=== PATIENT | male | born 1955 | race Caucasian/White ===

== ENCOUNTER → 2018-06-24 09:19 | Outpatient (CLI) | payer MEDICAID, SELFPAY ==
[2018-06-24 09:39] LABS: Abs Immature Grans 0.01 k/cumm (0.0-0.09); Absolute Basophil Count 0.04 k/cumm (0.0-0.2); Absolute Eosinophil Count 0.12 k/cumm (0.0-0.7); Absolute Lymphocyte Count 0.62 k/cumm (1.2-3.4); Absolute Monocyte Count 0.46 k/cumm (0.11-0.7); Basophils % 0.9; Eosinophils % 2.7; HCT 42.7 % (40.0-50.0); HGB 14.7 g/dL (13.5-17.5); Immature Grans % 0.2; Lymphocytes % 13.9; Mean Corp. HGB Concentration 34.4 g/dL (32.0-36.0); Mean Corpuscular Hemoglobin 33.3 pg (27.0-33.0); Mean Corpuscular Volume 96.6 fL (80-95); Mean Platelet Volume 8.5 fL (8.0-11.0); Monocytes % 10.3; Platelet Count 193 x1000/uL (130-400); RBC 4.42 m/cumm (4.50-6.00); RBC Distribution Width 13.1 % (11.8-14.1); White Blood Cell Count 4.45 k/cumm (4.4-10.8)
[2018-06-24 10:05] LABS: Iron 172 ug/dL (50-175); Total Iron Binding Capacity 295 ug/dL (250-450); Transferrin Sat 58 % (20-55)
[2018-06-24 10:26] LABS: ALT 65 U/L (12-78); AST 32 U/L (15-37); Albumin 3.8 g/dL (3.4-5.0); Alkaline Phosphatase 138 U/L (46-116); Anion Gap 8.8 mmol/L (3-11); BUN 26 mg/dL (7-18); Bilirubin, Total 0.6 mg/dL (0.2-1.0); CO2 26.2 mmol/L (21.0-32.0); CREATININE 1.22 mg/dL (0.70-1.30); Calcium 9.1 mg/dL (8.5-10.1); Chloride 102 mmol/L (98-107); Folate 17.7 ng/mL (8.6-20.0); Glucose 119 mg/dL (70-100); Potassium 4.4 mmol/L (3.5-5.1); Sodium 137 mmol/L (136-145); Total Protein 7.8 g/dL (6.4-8.2); Vitamin B12 480 pg/mL (193-986)
[2018-06-24 10:27] LABS: Ferritin 1254 ng/mL (8-388)
[2018-06-24 10:36] LABS: LDH 211 U/L (85-227)
[2018-06-25 13:59] LABS: Albumin 58.6 % (55.8-66.1); Total Protein 7.2 g/dl (6.3-8.2)
[2018-06-25 14:25] LABS: ANA Interpretation Negative (NEGAT)
[2018-06-26 11:34] LABS: Methylmalonic Acid 0.28 nmol/mL (<=0.40)
== END ==
PROVIDERS: PCP Emergency Medicine; Visit Provider Internal Medicine
DX: D72.819 Decreased white blood cell count, unspecified (principal)
CPT/HCPCS: 36415; 80053; 80186; 82607; 82728; 82746; 83540; 83550; 83615; 84165; 85025; 86038

== ENCOUNTER → 2018-07-09 08:47 | Outpatient (CLI) | payer MEDICAID, SELFPAY ==
[2018-07-09 09:21] LABS: Prothrombin Time 9.9 sec (9.3-10.8)
[2018-07-09 10:54] LABS: Ferritin 772 ng/mL (8-388)
[2018-07-19 12:30] LABS: Specimen WB Whole Blood
== END ==
PROVIDERS: PCP Emergency Medicine; Visit Provider Internal Medicine
DX: E83.110 Hereditary hemochromatosis (principal)
CPT/HCPCS: 36415; 81256; 82728; 85610

== ENCOUNTER → 2018-07-16 03:14 | Outpatient (CLI) | payer MEDICAID, SELFPAY ==
[2018-07-16 09:23] LABS: Abs Immature Grans 0.01 k/cumm (0.0-0.09); Absolute Basophil Count 0.02 k/cumm (0.0-0.2); Absolute Eosinophil Count 0.08 k/cumm (0.0-0.7); Absolute Lymphocyte Count 0.56 k/cumm (1.2-3.4); Absolute Monocyte Count 0.37 k/cumm (0.11-0.7); Absolute Neutrophil Count 2.64 k/cumm (1.2-6.7); Basophils % 0.5; Eosinophils % 2.2; HGB 14.1 g/dL (13.5-17.5); Immature Grans % 0.3; Lymphocytes % 15.2; Mean Corp. HGB Concentration 33.6 g/dL (32.0-36.0); Mean Corpuscular Hemoglobin 33.3 pg (27.0-33.0); Mean Corpuscular Volume 99.1 fL (80-95); Mean Platelet Volume 8.5 fL (8.0-11.0); Monocytes % 10.1; Neutrophils % 71.7; Platelet Count 183 x1000/uL (130-400); RBC 4.24 m/cumm (4.50-6.00); RBC Distribution Width 13.3 % (11.8-14.1); White Blood Cell Count 3.68 k/cumm (4.4-10.8)
[2018-07-16 09:32] LABS: Prothrombin Time 9.5 sec (9.3-10.8)
[2018-07-16 09:48] LABS: Iron 162 ug/dL (50-175); Total Iron Binding Capacity 316 ug/dL (250-450); Transferrin Sat 51 % (20-55)
[2018-07-16 10:16] LABS: ALT 78 U/L (12-78); AST 35 U/L (15-37); Alkaline Phosphatase 145 U/L (46-116); Anion Gap 9.1 mmol/L (3-11); BUN 15 mg/dL (7-18); Bilirubin, Total 0.5 mg/dL (0.2-1.0); CO2 26.9 mmol/L (21.0-32.0); CREATININE 1.05 mg/dL (0.70-1.30); Calcium 8.9 mg/dL (8.5-10.1); Chloride 103 mmol/L (98-107); Ferritin 986 ng/mL (8-388); Folate 19.3 ng/mL (8.6-20.0); Glucose 129 mg/dL (70-100); Potassium 4.6 mmol/L (3.5-5.1); Sodium 139 mmol/L (136-145); Total Protein 7.7 g/dL (6.4-8.2); Vitamin B12 474 pg/mL (193-986)
[2018-07-16 10:32] LABS: LDH 226 U/L (85-227)
[2018-07-17 09:37] LABS: PSA, Diagnostic <0.1 ng/ml (0-4.5)
[2018-07-17 12:46] LABS: Albumin 58.3 % (55.8-66.1); Total Protein 6.9 g/dl (6.3-8.2)
[2018-07-17 14:19] LABS: ANA Interpretation Negative (NEGAT)
[2018-07-18 08:54] LABS: Testosterone, Total 7.4 ng/dL (240-950)
[2018-07-19 16:18] LABS: Methylmalonic Acid 0.15 nmol/mL (<=0.40)
== END ==
PROVIDERS: PCP Emergency Medicine; Visit Provider Internal Medicine
DX: C61 Malignant neoplasm of prostate (principal); D72.819 Decreased white blood cell count, unspecified; E83.110 Hereditary hemochromatosis
CPT/HCPCS: 36415; 80053; 80186; 84403; 81256; 82607; 82728; 82746; 83540; 83550; 83615; 84153; 84165; 85025; 85610; 86038

== ENCOUNTER 2018-08-27 01:25 | Outpatient (CLI) | payer MEDICAID, SELFPAY ==
[2018-08-27 09:11] LABS: INR 1.1 (1.0-3.5); Prothrombin Time 10.3 sec (9.3-10.8)
[2018-08-27 10:13] LABS: Ferritin 998 ng/mL (8-388)
== END 2018-08-27 01:45 ==
PROVIDERS: PCP Emergency Medicine; Visit Provider Internal Medicine
DX: E83.110 Hereditary hemochromatosis (principal)
CPT/HCPCS: 36415; 81256; 82728; 85610

== ENCOUNTER 2018-09-24 01:48 | Outpatient (CLI) | payer MEDICAID, SELFPAY ==
[2018-09-24 09:12] LABS: Abs Immature Grans 0.01 k/cumm (0.0-0.09); Absolute Basophil Count 0.02 k/cumm (0.0-0.2); Absolute Eosinophil Count 0.04 k/cumm (0.0-0.7); Absolute Lymphocyte Count 0.89 k/cumm (1.2-3.4); Absolute Monocyte Count 0.31 k/cumm (0.11-0.7); Absolute Neutrophil Count 2.15 k/cumm (1.2-6.7); Basophils % 0.6; Eosinophils % 1.2; HCT 41.4 % (40.0-50.0); HGB 14.1 g/dL (13.5-17.5); Immature Grans % 0.3; Mean Corp. HGB Concentration 34.1 g/dL (32.0-36.0); Mean Corpuscular Hemoglobin 33.3 pg (27.0-33.0); Mean Corpuscular Volume 97.6 fL (80-95); Mean Platelet Volume 8.1 fL (8.0-11.0); Monocytes % 9.1; Neutrophils % 62.8; Platelet Count 159 x1000/uL (130-400); RBC 4.24 m/cumm (4.50-6.00); RBC Distribution Width 12.2 % (11.8-14.1); White Blood Cell Count 3.42 k/cumm (4.4-10.8)
[2018-09-24 09:23] LABS: INR 1.1 (1.0-3.5); Prothrombin Time 10.4 sec (9.3-10.8)
[2018-09-24 09:45] LABS: ALT 75 U/L (12-78); AST 29 U/L (15-37); Albumin 3.5 g/dL (3.4-5.0); Alkaline Phosphatase 135 U/L (46-116); Anion Gap 8.4 mmol/L (3-11); BUN 19 mg/dL (7-18); Bilirubin, Total 0.4 mg/dL (0.2-1.0); CO2 24.6 mmol/L (21.0-32.0); CREATININE 1.04 mg/dL (0.70-1.30); Calcium 8.8 mg/dL (8.5-10.1); Chloride 103 mmol/L (98-107); Ferritin 914 ng/mL (8-388); Glucose 203 mg/dL (70-100); Potassium 4.2 mmol/L (3.5-5.1); Sodium 136 mmol/L (136-145)
[2018-09-25 10:03] LABS: PSA, Diagnostic <0.1 ng/ml (0-4.5)
[2018-09-27 16:02] LABS: Testosterone, Total 7.5 ng/dL (240-950)
== END 2018-09-24 02:08 ==
PROVIDERS: PCP Emergency Medicine; Visit Provider Nurse Practitioner
DX: C61 Malignant neoplasm of prostate (principal); E83.110 Hereditary hemochromatosis
CPT/HCPCS: 36415; 80053; 84403; 81256; 82728; 84153; 85025; 85610

== ENCOUNTER 2018-09-28 14:12 | Emergency (ER) | payer MEDICAID, SELFPAY ==
[2018-09-28 14:17] VITALS: BP 186/95; PULSE 76; RESP 18; TEMP 36.7; O2SAT 98
--- NOTE | 2018-09-28 14:41 | DI.CT_ITS ---
SYMPTOM/DIAGNOSIS: RIGHT SIDED FLANK KPAIN, HISTORY OF KIDNEY STONE CT ABDOMEN AND PELVIS: Renal colic CT was performed. There is a 3 mm stone in the distal right ureter just proximal to the ureteropelvic junction causing mild hydronephrosis. There is a nonobstructing 1 mm stone in the lower pole of the right kidney. No left nephrolithiasis or ureterolithiasis is seen. No left hydronephrosis is present. The urinary bladder is intact. The reproductive organs are unremarkable. There is diffuse decreased attenuation of the liver consistent with fatty infiltration. The unenhanced visualized portions of the spleen, pancreas, gallbladder, bile ducts and adrenal glands are unremarkable. The aorta is of normal caliber with mild atherosclerosis. No significant abdominal or pelvic adenopathy, ascites or pneumoperitoneum is seen. The bowel shows no evidence of obstruction or inflammation. There does appear to be a small hiatal hernia. Degenerative changes are seen in the spine. IMPRESSION: 3 mm distal right ureteral calculus causing mild to moderate hydronephrosis. 2. Right nephrolithiasis 3. Hepatic steatosis.
[2018-09-28 14:43] LABS: Bilirubin Negative (Negative); Blood Moderate (Negative); Clarity Clear; Glucose Negative (Negative); Ketones Negative (Negative); Leukocyte Esterase Negative (Negative); Nitrite Negative (Negative); Specific Gravity 1.025 (1.005-1.025); Urobilinogen 0.2 EU/dL (Up TO 0.2); pH 5.5 (5-8)
[2018-09-28] MEDS: Normal Saline 1,000 ML 1000 ML IV (14:49)
[2018-09-28] MEDS: Ketorolac 30 MG/ML VIAL IM (14:50)
--- NOTE | 2018-09-28 14:52 | W.ED.GENAD ---
Discharge Plan Disposition Patient Disposition: HOME Condition: Good Discharge Details Chief Complaint: FlankPain Clinical Impression: Kidney stone Primary Care Provider: Cornelius Hodge ED Provider: Shane Bar Home Meds and New Rx's Prescriptions: New ibuprofen [Motrin IB] 200 MG tablet 600 mg PO Q6H 5 Days Qty: 60 RF: 0 tamsulosin [Flomax] 0.4 mg capsule 0.4 mg PO DAILY Qty: 3 RF: 0 No Action tiotropium bromide [Spiriva with HandiHaler] 18 MCG capsule, w/inhalation device 18 mcg Inhalation DAILY RF: 0 leuprolide (3 month) [Lupron Depot (3 month)] 22.5 MG syringe kit 22.5 mg IM Q3 months RF: 0 lisinopril [Zestril] 5 mg tablet 5 mg PO DAILY Qty: 90 RF: 3 pravastatin [Pravachol] 40 mg tablet 40 mg PO HS Qty: 90 RF: 3 Discharge Instructions Instructions: Kidney Stones (ED) Additional Instructions: Please take the medication as directed. Please drink 8-10 cups of water per day. If you notice any worsening of your symptoms, or any new symptoms such as vomiting, diarrhea, fever, chills, shortness of breath, chest pain, numbness, weakness, or fainting , please return immediately to the emergency department for reevaluation. Please follow up with your primary care provider as soon as possible for reassessment and reevaluation. As always, it was a pleasure participating in your medical care today. Referrals: Cornelius Hodge, [Primary Care Provider] - Medical Decision Making This is a 63-year-old male with a past medical history of urolithiasis, as well as prostate cancer presents today for evaluation of right-sided flank pain, with associated increase in urinary frequency and mild burning. He states that there is no radiation of this pain however he does have some ache in his scrotal area. Genital exam demonstrates no signs of testicular torsion, no testicular masses or other abnormalities no evidence of hernia. Signs and symptoms are clinically consistent with urolithiasis, however because of the patient's age, and history of cancer we will get a CT scan to rule out any other acute process. Will evaluate for infection and his UA, control the patient's pain and rehydrate. 3:[address] scan was performed and I do visualize evidence of a stone on the right-hand side in the distal ureter. Urinalysis demonstrates no evidence of significant urinary tract infection. No systemic symptoms of fever, chills, or tachycardia. On reassessment the patient's pain is completely resolved. He is feeling much better. I will give a dose of Flomax here in the ED, prescription for Flomax and ibuprofen for home use. We discussed red flags which to return, and the patient understands. I have extensively reviewed the treatment plan and discharge instructions with the patient and their family. I have addressed all patient concerns at this time. The patient and family was made aware of what symptoms to monitor for that would warrant a return to the emergency department. Discussed the plan with the patient and family, they demonstrate verbal understanding and agreement with our assessment and plan at this time. FINDINGS: Penetration of the liver. Appendix is normal. Approximate 3 mm distal right ureteral stone just above the ureterovesical junction resulting in mild obstruction of the right kidney. No evidence of bowel obstruction. No focal inflammatory process. Minimal hiatal hernia. No significant free fluid. IMPRESSION: Distal right ureteral stone resulting in mild obstruction of the right kidney. Dictated and Authenticated by: Claus Kang MD. HPI General Date/Time Provider Initiated Documentation: 09/28/18 14:40. HPI Narrative: This is a 63-year-old male with a past medical history of kidney stones, prostate cancer who takes leuprolide every 3 months, who presents today for evaluation of right flank pain. 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 He describes it as an aching-like sensation in his right flank with no radiation. He has noted an associated increase in urinary frequency as well as mild burning in his urine. He states that the symptoms are atypical for him. He denies any hematuria, he states that his symptoms are similar to his previous kidney stone. He denies any associated vomiting or diarrhea but does admit to nausea. He denies any associated chest pain, shortness of breath, arm or neck pain. He denies any history of cardiac disease. He denies any diarrhea, hematochezia, melena, acholic stool. He denies any systemic symptoms of fever or chills. Patient does admit to some associated scrotal pain, and describes it is very mild. No aggravating or relieving factors for any of his symptoms. He denies any recent surgeries, any IV or illicit drug use, or any heavy history of tobacco abuse. He denies any pertinent family history. Related Data Home Medications Medication Instructions Recorded Confirmed tiotropium bromide [Spiriva 18 mcg INHALATION DAILY tab-cap 02/18/18 09/28/18 Handihaler] leuprolide (3 month) [Lupron Depot] 22.5 mg IM Q3 months 02/28/18 lisinopril 5 mg tablet 5 mg PO DAILY #90 tab-cap 09/19/18 09/28/18 pravastatin 40 mg tablet 40 mg PO HS #90 tab 09/19/18 09/28/18 ibuprofen [Motrin Ib] 600 mg PO Q6H 5 Days #60 tab 09/28/18 tamsulosin [Flomax] 0.4 mg PO DAILY #3 cap 09/28/18 Previous Rx's Medication Instructions Recorded lisinopril 5 mg tablet 5 mg PO DAILY #90 tab-cap 09/19/18 pravastatin 40 mg tablet 40 mg PO HS #90 tab 09/19/18 ibuprofen [Motrin Ib] 600 mg PO Q6H 5 Days #60 tab 09/28/18 tamsulosin [Flomax] 0.4 mg PO DAILY #3 cap 09/28/18 Allergies Allergy/AdvReac Type Severity Reaction Status Date / Time Penicillins Allergy Mild Skin Rash Unverified 09/28/18 14:22 oxycodone Allergy WHEEZING Unverified 09/28/18 14:22 atorvastatin AdvReac Intermediate MYALGIAS Unverified 09/28/18 14:22 General Stated Complaint: FlankPain LUCILA: 3 Review of Systems Review of Systems All systems reviewed & are unremarkable except as noted in HPI and below PFSH Family History Mother Diabetes Essential hypertension Heart disease Cerebrovascular accident Asthma Father Diabetes Essential hypertension Sister Diabetes Essential hypertension Heart disease Hyperlipidemia Brother Essential hypertension Heart disease Grandfather Neoplasm Grandfather Essential hypertension Heart disease Grandmother Essential hypertension Cerebrovascular accident Asthma Grandmother Essential hypertension Cerebrovascular accident Asthma Brother Essential hypertension Heart disease Social History current occupational status: employed 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 3.ENT: Atraumatic external nose and ears. Moist MM. Neck: Symmetric, trachea midline, No thyromegaly. 4.CVS: +S1/S2, No murmurs or gallops. Peripheral pulses 2+ and equal in all extremities. Brisk capillary refill in all extremities. 5.RESP: Unlabored respiratory effort. Clear to auscultation bilaterally. No wheezes rales or rhonchi 6.GI: Soft, Nontender/Nondistended, No hepatosplenomegaly. No guarding or rebound. Patient does demonstrate mild right flank tenderness on percussion. No guarding. Genital exam demonstrates no evidence of significant hernia, and uncircumcised penis, and minimal scrotal tenderness, no evidence of edema, significant testicular tenderness. Normal cremasteric reflex bilaterally. No evidence of necrotizing fasciitis, bruising, or hematoma. 7.MSK: Normocephalic/Atraumatic, Extremities w/o deformity or ttp No cyanosis or clubbing, Normal movement of all extremities 8.Skin: Warm, Dry. No rashes or lesions. 9.Neuro: customer solutions teammate II-XII grossly intact. Sensation grossly intact, no focal neurologic deficits. 10.Psych: (AAO) x3. Appropriate mood and affect Course Vital Signs Temperature 36.7 C 09/28/18 14:17 Pulse 76 09/28/18 14:17 Respiratory Rate 18 09/28/18 14:17 Blood Pressure 186/95 H 09/28/18 14:17 Pulse Oximetry 98 09/28/18 14:17 Temperature 36.7 C 09/28/18 14:17 Temperature Source Skin 09/28/18 14:17 Pulse 76 09/28/18 14:17 Respiratory Rate 18 09/28/18 14:17 Respiratory Effort 09/28/18 14:20 Blood Pressure 186/95 H 09/28/18 14:17 Blood Pressure Position Sitting 09/28/18 14:17 Pulse Oximetry 98 09/28/18 14:17 Pain Level 8 09/28/18 14:35
[2018-09-28 14:54] LABS: Bacteria Negative HPF (Negative); C & S Indicated? No; Casts Negative LPF (Negative); Crystals Negative HPF (Negative); Epithelial Cells Rare HPF (Negative); Mucus Trace (Negative); RBC 20-50 (0-2); WBC 0-2 HPF (0-5)
[2018-09-28] MEDS: Ondansetron 4 MG/2 ML VIAL (14:54)
[2018-09-28 14:58] LABS: Abs Immature Grans 0.01 k/cumm (0.0-0.09); Absolute Basophil Count 0.03 k/cumm (0.0-0.2); Absolute Eosinophil Count 0.06 k/cumm (0.0-0.7); Absolute Lymphocyte Count 1.01 k/cumm (1.2-3.4); Absolute Monocyte Count 0.58 k/cumm (0.11-0.7); Absolute Neutrophil Count 4.04 k/cumm (1.2-6.7); Basophils % 0.5; HCT 42.6 % (40.0-50.0); HGB 14.6 g/dL (13.5-17.5); Immature Grans % 0.2; Lymphocytes % 17.6; Mean Corp. HGB Concentration 34.3 g/dL (32.0-36.0); Mean Corpuscular Hemoglobin 33.3 pg (27.0-33.0); Mean Platelet Volume 8.6 fL (8.0-11.0); Monocytes % 10.1; Neutrophils % 70.6; Platelet Count 211 x1000/uL (130-400); RBC 4.39 m/cumm (4.50-6.00); RBC Distribution Width 12.1 % (11.8-14.1); White Blood Cell Count 5.73 k/cumm (4.4-10.8)
[2018-09-28 15:09] LABS: ALT 73 U/L (12-78); AST 38 U/L (15-37); Albumin 3.8 g/dL (3.4-5.0); Alkaline Phosphatase 139 U/L (46-116); Anion Gap 9.5 mmol/L (3-11); BUN 20 mg/dL (7-18); Bilirubin, Total 0.5 mg/dL (0.2-1.0); CO2 25.5 mmol/L (21.0-32.0); CREATININE 1.11 mg/dL (0.70-1.30); Chloride 101 mmol/L (98-107); Glucose 106 mg/dL (70-100); Potassium 4.1 mmol/L (3.5-5.1); Sodium 136 mmol/L (136-145); Total Protein 7.6 g/dL (6.4-8.2)
--- NOTE | 2018-09-28 15:54 | DI.VRAD_ITS ---
EXAM: CT Abdomen and Pelvis Without Intravenous Contrast EXAM DATE/TIME: 09/28/2018 2:44 PM CLINICAL HISTORY: 63 years old, male; Signs and symptoms; Other: Pain RT sided; Additional info: RT sided flank pain history of kidney stone TECHNIQUE: Axial computed tomography images of the abdomen and pelvis without intravenous contrast. All CT scans at this facility use at least one of these dose optimization techniques: automated exposure control; mA and/or kV adjustment per patient size (includes targeted exams where dose is matched to clinical indication); or iterative reconstruction. Coronal and sagittal reformatted images were created and reviewed. COMPARISON: CT ABD PELVIS WITH CONTRAST 03/25/2014 8:16 AM FINDINGS: Penetration of the liver. Appendix is normal. Approximate 3 mm distal right ureteral stone just above the ureterovesical junction resulting in mild obstruction of the right kidney. No evidence of bowel obstruction. No focal inflammatory process. Minimal hiatal hernia. No significant free fluid. IMPRESSION: Distal right ureteral stone resulting in mild obstruction of the right kidney. Dictated and Authenticated by: Claus Kang MD. Ordering:LIUDMILA GUPTA MD
[2018-09-28] MEDS: Tamsulosin 0.4 MG CAPCR PO (16:01)
[2018-09-28 16:23] VITALS: BP 149/77; PULSE 71; RESP 16; TEMP 37.1
== END 2018-09-28 16:18 | disposition home or self-care (01) ==
PROVIDERS: Emergency Provider Student in an Organized Health Care Education/Training Program; PCP Emergency Medicine
DX: N20.2 Calculus of kidney with calculus of ureter (principal)
CPT/HCPCS: 36415; 80053; 96360; 96372; 99284; 74176; 81003; 81015; 85025; 87086; J1885; J2405

== ENCOUNTER 2019-01-06 07:36 | Outpatient (CLI) | payer MEDICAID, SELFPAY ==
[2019-01-06 13:48] LABS: Abs Immature Grans 0.01 k/cumm (0.0-0.09); Absolute Basophil Count 0.05 k/cumm (0.0-0.2); Absolute Eosinophil Count 0.05 k/cumm (0.0-0.7); Absolute Lymphocyte Count 0.71 k/cumm (1.2-3.4); Absolute Monocyte Count 0.29 k/cumm (0.11-0.7); Absolute Neutrophil Count 3.35 k/cumm (1.2-6.7); Basophils % 1.1; Eosinophils % 1.1; HCT 40.2 % (40.0-50.0); HGB 13.6 g/dL (13.5-17.5); Immature Grans % 0.2; Lymphocytes % 15.9; Mean Corp. HGB Concentration 33.8 g/dL (32.0-36.0); Mean Corpuscular Hemoglobin 32.7 pg (27.0-33.0); Mean Corpuscular Volume 96.6 fL (80-95); Mean Platelet Volume 8.5 fL (8.0-11.0); Monocytes % 6.5; Neutrophils % 75.2; Platelet Count 170 x1000/uL (130-400); RBC 4.16 m/cumm (4.50-6.00); RBC Distribution Width 12.7 % (11.8-14.1); White Blood Cell Count 4.46 k/cumm (4.4-10.8)
[2019-01-06 14:02] LABS: ALT 51 U/L (12-78); AST 28 U/L (15-37); Albumin 3.3 g/dL (3.4-5.0); Alkaline Phosphatase 117 U/L (46-116); Anion Gap 7.9 mmol/L (3-11); BUN 18 mg/dL (7-18); Bilirubin, Total 0.3 mg/dL (0.2-1.0); CO2 29.1 mmol/L (21.0-32.0); CREATININE 1.02 mg/dL (0.70-1.30); Calcium 8.5 mg/dL (8.5-10.1); Chloride 104 mmol/L (98-107); Glucose 203 mg/dL (70-100); Potassium 4.4 mmol/L (3.5-5.1); Sodium 141 mmol/L (136-145)
[2019-01-07 09:57] LABS: PSA, Diagnostic <0.1 ng/ml (0-4.5)
[2019-01-08 17:09] LABS: Testosterone, Total 7.7 ng/dL (240-950)
== END 2019-01-06 07:56 ==
PROVIDERS: Internal Medicine; PCP Emergency Medicine; Visit Provider Nurse Practitioner
DX: C61 Malignant neoplasm of prostate (principal)
CPT/HCPCS: 36415; 80053; 84403; 84153; 85025

== ENCOUNTER 2019-02-06 01:34 | Outpatient (CLI) | payer MEDICAID, SELFPAY ==
[2019-02-06 11:20] LABS: Hemoglobin A1C 5.8 % (4.5-6.2)
[2019-02-06 11:54] LABS: Iron 122 ug/dL (50-175); Total Iron Binding Capacity 304 ug/dL (250-450); Transferrin Sat 40 % (20-55)
[2019-02-06 12:09] LABS: Ferritin 613 ng/mL (8-388)
== END 2019-02-06 01:54 ==
PROVIDERS: PCP Emergency Medicine; Visit Provider Emergency Medicine
DX: E11.9 Type 2 diabetes mellitus without complications (principal); R79.89 Other specified abnormal findings of blood chemistry
CPT/HCPCS: 36415; 82728; 83036; 83540; 83550

== ENCOUNTER 2019-02-23 02:04 | Outpatient (CLI) | payer MEDICAID, SELFPAY ==
[2019-02-23 10:32] LABS: Absolute Basophil Count 0.04 k/cumm (0.0-0.2); Absolute Eosinophil Count 0.05 k/cumm (0.0-0.7); Absolute Lymphocyte Count 0.77 k/cumm (1.2-3.4); Absolute Monocyte Count 0.34 k/cumm (0.11-0.7); Absolute Neutrophil Count 2.69 k/cumm (1.2-6.7); Eosinophils % 1.3; Lymphocytes % 19.8; Mean Corp. HGB Concentration 33.3 g/dL (32.0-36.0); Mean Corpuscular Hemoglobin 32.2 pg (27.0-33.0); Mean Corpuscular Volume 96.6 fL (80-95); Mean Platelet Volume 8.6 fL (8.0-11.0); Monocytes % 8.7; Neutrophils % 69.2; Platelet Count 181 x1000/uL (130-400); RBC 4.35 m/cumm (4.50-6.00); RBC Distribution Width 12.9 % (11.8-14.1); White Blood Cell Count 3.89 k/cumm (4.4-10.8)
[2019-02-23 10:46] LABS: ALT 49 U/L (12-78); AST 30 U/L (15-37); Albumin 3.8 g/dL (3.4-5.0); Alkaline Phosphatase 104 U/L (46-116); Anion Gap 7.3 mmol/L (3-11); BUN 18 mg/dL (7-18); Bilirubin, Total 0.4 mg/dL (0.2-1.0); CO2 28.7 mmol/L (21.0-32.0); CREATININE 0.82 mg/dL (0.70-1.30); Chloride 104 mmol/L (98-107); Glucose 102 mg/dL (70-100); Potassium 4.4 mmol/L (3.5-5.1); Sodium 140 mmol/L (136-145); Total Protein 7.4 g/dL (6.4-8.2)
[2019-02-24 09:17] LABS: PSA, Diagnostic <0.1 ng/ml (0-4.5)
[2019-02-25 08:35] LABS: Testosterone, Total 7.6 ng/dL (240-950)
== END 2019-02-23 02:24 ==
PROVIDERS: PCP Emergency Medicine; Visit Provider Internal Medicine
DX: C61 Malignant neoplasm of prostate (principal)
CPT/HCPCS: 36415; 80053; 84403; 84153; 85025

== ENCOUNTER 2019-04-18 08:34 | Outpatient (CLI) | payer MEDICAID, SELFPAY ==
[2019-04-18 09:50] LABS: ALT 45 U/L (12-78); AST 28 U/L (15-37); Albumin 3.6 g/dL (3.4-5.0); Alkaline Phosphatase 104 U/L (46-116); Anion Gap 9.1 mmol/L (3-11); BUN 17 mg/dL (7-18); Bilirubin, Total 0.4 mg/dL (0.2-1.0); CO2 27.9 mmol/L (21.0-32.0); CREATININE 0.85 mg/dL (0.70-1.30); Calcium 9.1 mg/dL (8.5-10.1); Chloride 104 mmol/L (98-107); Glucose 94 mg/dL (70-100); Potassium 4.2 mmol/L (3.5-5.1); Sodium 141 mmol/L (136-145); Total Protein 7.1 g/dL (6.4-8.2)
[2019-04-18 10:03] LABS: Abs Immature Grans 0.01 k/cumm (0.0-0.09); Absolute Basophil Count 0.02 k/cumm (0.0-0.2); Absolute Eosinophil Count 0.08 k/cumm (0.0-0.7); Absolute Monocyte Count 0.45 k/cumm (0.11-0.7); Absolute Neutrophil Count 2.75 k/cumm (1.2-6.7); Basophils % 0.5; Eosinophils % 1.9; HCT 40.2 % (40.0-50.0); HGB 13.6 g/dL (13.5-17.5); Immature Grans % 0.2; Lymphocytes % 19.5; Mean Corp. HGB Concentration 33.8 g/dL (32.0-36.0); Mean Corpuscular Hemoglobin 32.6 pg (27.0-33.0); Mean Corpuscular Volume 96.4 fL (80-95); Mean Platelet Volume 8.7 fL (8.0-11.0); Monocytes % 10.9; Platelet Count 186 x1000/uL (130-400); RBC 4.17 m/cumm (4.50-6.00); RBC Distribution Width 12.8 % (11.8-14.1); White Blood Cell Count 4.11 k/cumm (4.4-10.8)
[2019-04-20 09:58] LABS: PSA, Diagnostic <0.1 ng/ml (0-4.5)
[2019-04-21 17:13] LABS: Testosterone, Total <7.0 ng/dL (240-950)
== END 2019-04-18 08:54 ==
PROVIDERS: PCP Emergency Medicine; Visit Provider Nurse Practitioner
DX: C61 Malignant neoplasm of prostate (principal)
CPT/HCPCS: 36415; 80053; 84403; 84153; 85025

== ENCOUNTER 2019-07-08 08:07 | Outpatient (CLI) | payer MEDICAID, SELFPAY ==
[2019-07-08 10:42] LABS: Abs Immature Grans 0.01 k/cumm (0.0-0.09); Absolute Basophil Count 0.03 k/cumm (0.0-0.2); Absolute Eosinophil Count 0.07 k/cumm (0.0-0.7); Absolute Lymphocyte Count 0.69 k/cumm (1.2-3.4); Absolute Monocyte Count 0.42 k/cumm (0.11-0.7); Absolute Neutrophil Count 3.33 k/cumm (1.2-6.7); Basophils % 0.7; Eosinophils % 1.5; HCT 41.8 % (40.0-50.0); HGB 13.8 g/dL (13.5-17.5); Immature Grans % 0.2; Lymphocytes % 15.2; Mean Corpuscular Hemoglobin 32.5 pg (27.0-33.0); Mean Corpuscular Volume 98.4 fL (80-95); Monocytes % 9.2; Neutrophils % 73.2; Platelet Count 202 x1000/uL (130-400); RBC 4.25 m/cumm (4.50-6.00); RBC Distribution Width 12.9 % (11.8-14.1); White Blood Cell Count 4.55 k/cumm (4.4-10.8)
[2019-07-08 11:12] LABS: ALT 45 U/L (12-78); AST 27 U/L (15-37); Albumin 3.4 g/dL (3.4-5.0); Alkaline Phosphatase 102 U/L (46-116); Anion Gap 8.6 mmol/L (3-11); BUN 14 mg/dL (7-18); Bilirubin, Total 0.3 mg/dL (0.2-1.0); CO2 27.4 mmol/L (21.0-32.0); CREATININE 0.97 mg/dL (0.70-1.30); Calcium 8.6 mg/dL (8.5-10.1); Chloride 107 mmol/L (98-107); Glucose 109 mg/dL (70-100); Potassium 4.1 mmol/L (3.5-5.1); Sodium 143 mmol/L (136-145); Total Protein 6.6 g/dL (6.4-8.2)
[2019-07-09 11:50] LABS: PSA, Screening <0.1 ng/ml (0-4.5)
[2019-07-11 14:11] LABS: Testosterone, Total <7.0 ng/dL (240-950)
== END 2019-07-08 08:27 ==
PROVIDERS: PCP Emergency Medicine; Visit Provider Nurse Practitioner Family
DX: C61 Malignant neoplasm of prostate (principal)
CPT/HCPCS: 36415; 80053; 84153; 84403; 85025

== ENCOUNTER 2019-09-07 11:34 | Emergency (ER) | payer MEDICAID, SELFPAY ==
[2019-09-07 11:38] VITALS: BP 144/76; PULSE 63; RESP 13; TEMP 36.7; O2SAT 99
[2019-09-07 11:46] VITALS: RESP 13
[2019-09-07 12:17] LABS: Abs Immature Grans 0.01 k/cumm (0.0-0.09); Absolute Basophil Count 0.03 k/cumm (0.0-0.2); Absolute Eosinophil Count 0.06 k/cumm (0.0-0.7); Absolute Lymphocyte Count 0.71 k/cumm (1.2-3.4); Absolute Monocyte Count 0.41 k/cumm (0.11-0.7); Absolute Neutrophil Count 3.45 k/cumm (1.2-6.7); Basophils % 0.6; Eosinophils % 1.3; HCT 42.4 % (40.0-50.0); HGB 14.2 g/dL (13.5-17.5); Immature Grans % 0.2; Lymphocytes % 15.2; Mean Corp. HGB Concentration 33.5 g/dL (32.0-36.0); Mean Corpuscular Hemoglobin 32.6 pg (27.0-33.0); Mean Corpuscular Volume 97.2 fL (80-95); Mean Platelet Volume 8.5 fL (8.0-11.0); Monocytes % 8.8; Neutrophils % 73.9; Platelet Count 213 x1000/uL (130-400); RBC 4.36 m/cumm (4.50-6.00); RBC Distribution Width 12.8 % (11.8-14.1); White Blood Cell Count 4.67 k/cumm (4.4-10.8)
[2019-09-07 12:35] LABS: ALT 48 U/L (16-63); AST 34 U/L (15-37); Albumin 3.7 g/dL (3.4-5.0); Alkaline Phosphatase 103 U/L (46-116); Anion Gap 7.3 mmol/L (3-11); BUN 16 mg/dL (7-18); Bilirubin, Total 0.4 mg/dL (0.2-1.0); CO2 28.7 mmol/L (21.0-32.0); CREATININE 0.91 mg/dL (0.70-1.30); Calcium 9.1 mg/dL (8.5-10.1); Chloride 106 mmol/L (98-107); Glucose 92 mg/dL (70-100); Magnesium 1.6 mg/dL (1.8-2.4); Potassium 4.4 mmol/L (3.5-5.1); Sodium 142 mmol/L (136-145); Total Protein 7.3 g/dL (6.4-8.2)
--- NOTE | 2019-09-07 12:35 | DI.RAD_ITS ---
EXAM: XR CHEST 2V PA LATERAL INDICATION: CP. COMPARISON: CHEST 2 VIEWS PA,LAT from 11/26/2017 TECHNIQUE: 2D digital imaging was performed. FINDINGS: The lungs are well expanded and free of infiltrate. There is no evidence of a pleural effusion or pne umothorax. The cardiovascular structures are intact. IMPRESSION: No evidence of acute cardiopulmonary disease.
[2019-09-07 12:42] LABS: Troponin I < 0.05 ng/mL (0.00-0.06)
--- NOTE | 2019-09-07 12:52 | W.ED.GENAD ---
Discharge Plan Disposition Patient Disposition: HOME Condition: Improving Discharge Details Chief Complaint: Chest Pain Clinical Impression: Chest pain, Headache Primary Care Provider: Cornelius Hodge ED Provider: Stacy Lambert Home Meds and New Rx's Prescriptions: Continued metformin 500 mg tablet extended release 24 hr 500 mg PO BID RF: 0 Flonase Sensimist 27.5 mcg/actuation spray,suspension 2 spray ARTIS DAILY Qty: 18.2 RF: 11 lisinopril [Zestril] 5 mg tablet 5 mg PO DAILY Qty: 90 RF: 3 pravastatin [Pravachol] 40 mg tablet 40 mg PO HS Qty: 90 RF: 3 albuterol sulfate [ProAir HFA] 90 mcg/actuation HFA aerosol inhaler 2 puff IH QID Qty: 18 RF: 4 Symbicort 80-4.5 mcg/actuation HFA aerosol inhaler 2 puff IH BID Qty: 10.2 RF: 3 Discharge Instructions Instructions: Chest Pain (ED) Additional Instructions: Your blood work and ekg and chest xray were normal and reassuring Follow up with your primary care provider within 1 week for re-evaluation and for referral for outpatient stress test if symptoms return. If you have worsening pain, difficulty breathing, become sweaty or have nausea/vomit, return to the emergency department for reevaluation. Discharge Data Discharge Date/Time-TO BE ENTERED AT DEPARTURE: 09/07/19 12:47 Discharge Physician: Stacy Lambert Medical Decision Making <Mark Smith MD - Last Filed: 09/07/19 14:49> 64 yo male with hx of htn, hld, nonsmoker, who comes in with right anterior chest achiness that started this morning around 9am. He states the pain has resolved and denies any recent fevers, chills, n/v. Did have a headache with the pain that resolved as well. he is in no distress speaking in full sentences with clear lungs. EKG nondiagnostic, heart score of 3, will send troponin. No evidence of dvt, no pleuritic pain and no hypoxia or tachycardia so doubt PE. Normal vascular exam and no tearing back pain so doubt dissection pt's initial troponin negative and remains HD stable. Will order repeat troponin and still denies any pain pt signed out to Dr. Lambert pending delta troponin. Plan for d/c if troponin negative Differential Diagnosis Differential Diagnosis: nstemi, chest wall pain, ptx ECG Data Attestation: I personally reviewed and interpreted this ECG (s) as follows: Prior ECG tracings: not available for review Interpretation: sinus rhythm, rate of 60 pr 164, no acute st t wave ischemic findings <Stacy Lambert DO - Last Filed: 09/07/19 22:53> 1500 --please see Dr. Smith's note for initial presentation, exam and plan. Case endorsed to follow-up on repeat troponin and EKG. Heart score of 3 and if repeat labs and EKG negative, can discharge to home. 1645 --patient denies any symptoms at this time and he is requesting to go home. He has mild right anterior chest tenderness just along the right side of the sternal border. There is no evidence of trauma or rash. His lungs are clear. 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 His symptom presentation could be musculoskeletal. History/presentation not consistent with PE or dissection. Repeat EKG unchanged and second troponin negative. Patient is advised to follow-up with his primary care doctor for reevaluation and referral for outpatient stress test if his symptoms return. He is advised to return here at any time with any worsening or new concerning symptoms. He was advised that he can continue to alternate Tylenol and Motrin, and purchase [id number] Lidoderm patches to use for pain. Medical Records Medical records reviewed: Yes I reviewed the patient's medical records. Imaging Data Radiologic Study: Radiologist's impression: XR CHEST 2V PA LATERAL INDICATION: CP. COMPARISON: CHEST 2 VIEWS PA,LAT from 11/26/2017 TECHNIQUE: 2D digital imaging was performed. FINDINGS: The lungs are well expanded and free of infiltrate. There is no evidence of a pleural effusion or pneumothorax. The cardiovascular structures are intact. IMPRESSION: No evidence of acute cardiopulmonary disease. Lab Data Lab results reviewed: Yes I reviewed the patient's lab results. ECG Data Attestation: I personally reviewed and interpreted this ECG (s) as follows: Interpretation: #2 --Rate of 60, sinus, no acute ST elevation or depression. [place] 162. QTc 412. QRS 76. HPI <Mark Smith MD - Last Filed: 09/07/19 14:49> General Mode of arrival: ambulatory. Date/Time Provider Initiated Documentation: 09/07/19 11:57. Limitations to Documentation: no limitations. Information obtained by: patient. History of Present Illness 64 year old M presents to the emergency department with the chief complaint of chest pain, described as moderate, and it has been now resolved. No relieving factors improve symptom(s), No exacerbating factors reported . Related Data Home Medications Medication Instructions Recorded Confirmed lisinopril 5 mg tablet 5 mg PO DAILY #90 tab-cap 09/19/18 09/07/19 pravastatin 40 mg tablet 40 mg PO HS #90 tab 09/19/18 09/07/19 metformin 500 mg tablet,extended 500 mg PO BID tab 01/30/19 09/07/19 release 24 hr albuterol sulfate 90 mcg/actuation 2 puff IH QID #18 gm 02/03/19 09/07/19 aerosol inhaler fluticasone furoate 27.5 2 spray ARTIS DAILY #18.2 ml 06/24/19 09/07/19 mcg/actuation nasal spray,suspension budesonide-formoterol HFA 80 2 puff IH BID #10.2 gm 09/04/19 09/07/19 mcg-4.5 mcg/actuation aerosol inhaler Previous Rx's Medication Instructions Recorded lisinopril 5 mg tablet 5 mg PO DAILY #90 tab-cap 09/19/18 pravastatin 40 mg tablet 40 mg PO HS #90 tab 09/19/18 albuterol sulfate 90 mcg/actuation 2 puff IH QID #18 gm 02/03/19 aerosol inhaler fluticasone furoate 27.5 2 spray ARTIS DAILY #18.2 ml 06/24/19 mcg/actuation nasal spray,suspension budesonide-formoterol HFA 80 2 puff IH BID #10.2 gm 09/04/19 mcg-4.5 mcg/actuation aerosol inhaler Allergies Allergy/AdvReac Type Severity Reaction Status Date / Time Penicillins Allergy Mild Skin Rash Unverified 09/07/19 11:51 oxycodone Allergy WHEEZING Unverified 09/07/19 11:51 atorvastatin AdvReac Intermediate MYALGIAS Unverified 09/07/19 11:51 General Stated Complaint: Chest Pain LUCILA: 3 Review of Systems <Mark Smith MD - Last Filed: 09/07/19 14:49> Review of Systems ROS Unobtainable: All systems reviewed & are unremarkable except as noted in HPI and below Constitutional Constitutional: Denies chills, Denies fever(s) and Denies weakness Cardiovascular Cardiovascular: Denies dyspnea Respiratory Respiratory: Denies cough and Denies dyspnea Gastrointestinal Gastrointestinal: Denies abdominal pain, Denies nausea and Denies vomiting Musculoskeletal Musculoskeletal: Denies joint swelling Neurologic Neurologic: Denies weakness PFS <Mark Smith MD - Last Filed: 09/07/19 14:49> Medical History (Updated 06/24/19 @ 10:54 by Eusebio Marrero) Allergic rhinitis (Acute) Surgical History BACK SURGERY (~03/1994) Family History Mother Diabetes Essential hypertension Heart disease CHF Stroke Asthma Father Diabetes Essential hypertension Sister Diabetes Essential hypertension Heart disease Hyperlipidemia Brother Essential hypertension Heart disease Grandfather Neoplasm Grandfather Essential hypertension Heart disease Grandmother Essential hypertension Stroke Asthma Grandmother Essential hypertension Stroke Asthma Brother Essential hypertension Heart disease Social History (Updated 08/18/18 @ 09:27 by Kaitlin Hui) Smoking/Tobacco Use Status: Never Alcohol Intake: current Alcohol Intake frequency: a few times a week Drug use: Never Substance use type: does not use 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 Pets and animals: Yes Pets and animals: dog(s) and horse(s) Duration: < 15 minutes/day Frequency: daily Special jerilyn needs: No Do you feel safe at home: Yes Do you feel safe in your relationship?: Yes Exam <Mark Smith MD - Last Filed: 09/07/19 14:49> Const General: no acute distress Orientation: alert [facility] Head: normal to inspection Ears: external ears normal General nose exam: external nose normal Mouth: moist mucous membranes Eyes General: appearance normal, both eyes and all related structures Neck Neck: normal visual inspection Resp Effort & Inspection: normal respiratory effort and able to speak in complete sentences Cardio Rate: regular rate Skin General skin exam: no rashes or lesions noted Neuro General: alert and oriented x3 Extrem General: normal to inspection Psych Mental Status: mental status grossly normal Course <Mark Smith MD - Last Filed: 09/07/19 14:49> Vital Signs Vital signs: Vital Signs Temperature 36.7 C 09/07/19 11:38 Pulse 63 09/07/19 11:38 Respiratory Rate 13 09/07/19 11:38 Blood Pressure 144/76 H 09/07/19 11:38 Pulse Oximetry 99 09/07/19 11:38 Temperature 36.7 C 09/07/19 11:38 Temperature Source Temporal Artery Scan 09/07/19 11:38 Pulse 63 09/07/19 11:38 Respiratory Rate 13 09/07/19 11:46 Respiratory Effort 09/07/19 11:50 Respiratory Depth Normal 09/07/19 11:46 Respiratory Pattern Normal 09/07/19 11:46 Blood Pressure 144/76 H 09/07/19 11:38 Blood Pressure Position Supine 09/07/19 11:38 Pulse Oximetry 99 09/07/19 11:38 Oxygen Delivery Method Room Air 09/07/19 11:38 Oxygen Flow Rate 0 09/07/19 11:38 Pain Level 2 09/07/19 11:46 Lab/Test Results Lab/Test Results: Laboratory Tests Range/Units 09/07/19 09/07/19 09/07/19 12:02 12:02 14:57 WBC (4.4-10.8) k/cumm 4.67 RBC (4.50-6.00) m/cumm 4.36 L Hgb (13.5-17.5) g/dL 14.2 Hct (40.0-50.0) % 42.4 MCV (80-95) fL 97.2 H MCH (27.0-33.0) pg 32.6 MCHC (32.0-36.0) g/dL 33.5 RDW (11.8-14.1) % 12.8 Plt Count (130-400) x1000/uL 213 MPV (8.0-11.0) fL 8.5 Immature Gran % 0.2 Neutrophils % 73.9 Lymphocytes % 15.2 Monocytes % 8.8 Eosinophils % 1.3 Basophils % 0.6 Absolute Neutrophils (1.2-6.7) k/cumm 3.45 Absolute Lymphocytes (1.2-3.4) k/cumm 0.71 L Absolute Monocytes (0.11-0.7) k/cumm 0.41 Absolute Eosinophils (0.0-0.7) k/cumm 0.06 Absolute Basophils (0.0-0.2) k/cumm 0.03 Sodium (136-145) mmol/L 142 Potassium (3.5-5.1) mmol/L 4.4 Chloride (98-107) mmol/L 106 Carbon Dioxide (21.0-32.0) mmol/L 28.7 Anion Gap (3-11) mmol/L 7.3 BUN (7-18) mg/dL 16 Creatinine (0.70-1.30) mg/dL 0.91 Estimated GFR/1.73 m2 (mL/min/1.73m2) >= 60.00 Glucose (70-100) mg/dL 92 Calcium (8.5-10.1) mg/dL 9.1 Magnesium (1.8-2.4) mg/dL 1.6 L Total Bilirubin (0.2-1.0) mg/dL 0.4 AST (15-37) U/L 34 ALT (16-63) U/L 48 Alkaline Phosphatase (46-116) U/L 103 Troponin I (0.00-0.06) ng/mL < 0.05 Cancelled Total Protein (6.4-8.2) g/dL 7.3 Albumin (3.4-5.0) g/dL 3.7 Sign Out <Mark Smith MD - Last Filed: 09/07/19 14:49> Sign Out Data: Sign Out Comment: follow up on delta troponin, if negative can go home Last updated by Mark Smith MD at 09/07/19 14:47
[2019-09-07 15:36] LABS: Troponin I < 0.05 ng/mL (0.00-0.06)
[2019-09-07 17:03] VITALS: BP 132/77; PULSE 66; RESP 10; O2SAT 97
[2019-09-07 17:16] VITALS: BP 132/77; PULSE 59; RESP 8; TEMP 36.7; O2SAT 99
== END 2019-09-07 12:47 | disposition home or self-care (01) ==
PROVIDERS: Emergency Medicine; Physician Assistant; Emergency Provider Physician Assistant; PCP Emergency Medicine
DX: R07.89 Other chest pain (principal); R51 Headache; I10 Essential (primary) hypertension
CPT/HCPCS: 80053; 93005; 99284; 71046; 83735; 84484; 85025; 93010; 99283

== ENCOUNTER 2019-12-08 01:38 | Outpatient (CLI) | payer MEDICAID, SELFPAY ==
[2019-12-08 14:06] LABS: Abs Immature Grans 0.01 k/cumm (0.0-0.09); Absolute Basophil Count 0.05 k/cumm (0.0-0.2); Absolute Lymphocyte Count 0.89 k/cumm (1.2-3.4); Basophils % 0.8; Eosinophils % 1.7; HCT 42.1 % (40.0-50.0); HGB 14.1 g/dL (13.5-17.5); Immature Grans % 0.2 %; Lymphocytes % 14.7; Mean Corp. HGB Concentration 33.5 g/dL (32.0-36.0); Mean Corpuscular Hemoglobin 32.3 pg (27.0-33.0); Mean Corpuscular Volume 96.6 fL (80-95); Mean Platelet Volume 8.4 fL (8.0-11.0); Monocytes % 8.3; Neutrophils % 74.3; Platelet Count 211 x1000/uL (130-400); RBC 4.36 m/cumm (4.50-6.00); RBC Distribution Width 12.7 % (11.8-14.1); White Blood Cell Count 6.05 k/cumm (4.4-10.8)
[2019-12-08 14:28] LABS: ALT 49 U/L (16-63); AST 33 U/L (15-37); Albumin 3.8 g/dL (3.4-5.0); Alkaline Phosphatase 106 U/L (46-116); Anion Gap 10.1 mmol/L (3-11); BUN 22 mg/dL (7-18); Bilirubin, Total 0.4 mg/dL (0.2-1.0); CO2 23.9 mmol/L (21.0-32.0); Calcium 9.1 mg/dL (8.5-10.1); Chloride 107 mmol/L (98-107); Glucose 89 mg/dL (74-106); Potassium 4.1 mmol/L (3.5-5.1); Sodium 141 mmol/L (136-145); Total Protein 7.4 g/dL (6.4-8.2)
[2019-12-09 10:22] LABS: PSA, Diagnostic <0.1 ng/mL (0.0-4.5)
[2019-12-10 17:53] LABS: Testosterone, Total 304 ng/dL (240-950)
== END 2019-12-08 01:58 ==
PROVIDERS: PCP Emergency Medicine; Visit Provider Nurse Practitioner
DX: C61 Malignant neoplasm of prostate (principal)
CPT/HCPCS: 36415; 80053; 84403; 84153; 85025

== ENCOUNTER 2019-12-15 00:48 | Outpatient (CLI) | payer MEDICAID, SELFPAY ==
--- NOTE | 2019-12-15 17:17 | DI.DEXA_ITS ---
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 The bone mineral density measurements of the lumbar spine correspond to a total T-score of -1.3, in t he osteopenic range. Bone mineral density measurements of the left hip correspond to a a total T-score of -0.8 and a femor al neck T-score of -1.3, in the osteopenic range. Bone mineral density measurements of the right forearm correspond to a total T-score of -4.1 and a T- score of the distal 3rd of neck of -3.1. Is in the osteoporotic range. IMPRESSION: Osteopenia of the lumbar spine left hip. Osteoporosis the right forearm.
== END 2019-12-15 01:08 ==
PROVIDERS: PCP Emergency Medicine; Visit Provider Nurse Practitioner
DX: C61 Malignant neoplasm of prostate (principal); M85.88 Other specified disorders of bone density and structure, other site; M81.0 Age-related osteoporosis without current pathological fracture
CPT/HCPCS: 77080

== ENCOUNTER 2020-02-09 02:50 | Outpatient (CLI) | payer MEDICAID, SELFPAY ==
[2020-02-09 09:06] LABS: Abs Immature Grans 0.01 k/cumm (0.0-0.09); Absolute Basophil Count 0.05 k/cumm (0.0-0.2); Absolute Eosinophil Count 0.17 k/cumm (0.0-0.7); Absolute Monocyte Count 0.41 k/cumm (0.11-0.7); Basophils % 1.3; Eosinophils % 4.3; HCT 41.8 % (40.0-50.0); HGB 14.1 g/dL (13.5-17.5); Immature Grans % 0.3 %; Lymphocytes % 17.7; Mean Corp. HGB Concentration 33.7 g/dL (32.0-36.0); Mean Corpuscular Hemoglobin 32.5 pg (27.0-33.0); Mean Corpuscular Volume 96.3 fL (80-95); Mean Platelet Volume 8.2 fL (8.0-11.0); Monocytes % 10.4; Platelet Count 192 x1000/uL (130-400); RBC 4.34 m/cumm (4.50-6.00); RBC Distribution Width 12.5 % (11.8-14.1); White Blood Cell Count 3.96 k/cumm (4.4-10.8)
[2020-02-09 09:11] LABS: Absolute Neutrophil Count 2.61 k/cumm (1.2-6.7)
[2020-02-09 09:24] LABS: ALT 44 U/L (16-63); AST 30 U/L (15-37); Albumin 3.7 g/dL (3.4-5.0); Alkaline Phosphatase 97 U/L (46-116); Anion Gap 6.6 mmol/L (3-11); BUN 18 mg/dL (7-18); Bilirubin, Total 0.4 mg/dL (0.2-1.0); CO2 27.4 mmol/L (21.0-32.0); CREATININE 0.95 mg/dL (0.70-1.30); Calcium 8.9 mg/dL (8.5-10.1); Chloride 106 mmol/L (98-107); Glucose 98 mg/dL (74-106); Potassium 4.3 mmol/L (3.5-5.1); Sodium 140 mmol/L (136-145); Total Protein 7.2 g/dL (6.4-8.2)
[2020-02-11 09:51] LABS: PSA, Ultrasensitive <0.01 ng/mL (<= 4.5)
[2020-02-14 12:21] LABS: Testosterone, Total 413 ng/dL (240-950)
== END 2020-02-09 03:10 ==
PROVIDERS: PCP Emergency Medicine; Visit Provider Internal Medicine
DX: C61 Malignant neoplasm of prostate (principal)
CPT/HCPCS: 80053; 84153; 84403; 85025

== ENCOUNTER 2020-04-05 03:16 | Outpatient (CLI) | payer MEDICAID, SELFPAY ==
[2020-04-05 09:10] LABS: Absolute Basophil Count 0.02 k/cumm (0.0-0.2); Absolute Lymphocyte Count 0.75 k/cumm (1.2-3.4); Absolute Monocyte Count 0.41 k/cumm (0.11-0.7); Absolute Neutrophil Count 3.19 k/cumm (1.2-6.7); Basophils % 0.4; Eosinophils % 2.2; HCT 44.1 % (40.0-50.0); HGB 14.6 g/dL (13.5-17.5); Lymphocytes % 16.8; Mean Corp. HGB Concentration 33.1 g/dL (32.0-36.0); Mean Corpuscular Hemoglobin 31.7 pg (27.0-33.0); Mean Corpuscular Volume 95.7 fL (80-95); Monocytes % 9.2; Neutrophils % 71.4; Platelet Count 194 x1000/uL (130-400); RBC 4.61 m/cumm (4.50-6.00); White Blood Cell Count 4.47 k/cumm (4.4-10.8)
[2020-04-05 09:48] LABS: ALT 45 U/L (16-63); AST 23 U/L (15-37); Albumin 3.7 g/dL (3.4-5.0); Alkaline Phosphatase 96 U/L (46-116); Anion Gap 9.1 mmol/L (3-11); BUN 26 mg/dL (7-18); Bilirubin, Total 0.5 mg/dL (0.2-1.0); CO2 25.9 mmol/L (21.0-32.0); Calcium 8.3 mg/dL (8.5-10.1); Chloride 105 mmol/L (98-107); Glucose 104 mg/dL (74-106); Potassium 4.3 mmol/L (3.5-5.1); Sodium 140 mmol/L (136-145); Total Protein 6.9 g/dL (6.4-8.2)
[2020-04-06 11:34] LABS: PSA, Ultrasensitive <0.01 ng/mL (<= 4.5)
[2020-04-07 11:19] LABS: Testosterone, Total 412 ng/dL (240-950)
== END 2020-04-05 03:36 ==
PROVIDERS: PCP Emergency Medicine; Visit Provider Internal Medicine
DX: C61 Malignant neoplasm of prostate (principal)
CPT/HCPCS: 36415; 80053; 84153; 84403; 85025

== ENCOUNTER 2020-04-22 09:52 | Outpatient (CLI) | payer MEDICAID, SELFPAY ==
[2020-04-22 11:59] LABS: Anion Gap 7.6 mmol/L (3-11); BUN 30 mg/dL (7-18); CO2 26.4 mmol/L (21.0-32.0); CREATININE 1.09 mg/dL (0.70-1.30); Calcium 8.7 mg/dL (8.5-10.1); Chloride 104 mmol/L (98-107); Glucose 97 mg/dL (74-106); Potassium 4.7 mmol/L (3.5-5.1); Sodium 138 mmol/L (136-145)
== END 2020-04-22 10:12 ==
PROVIDERS: PCP Emergency Medicine; Visit Provider Nurse Practitioner Adult Health
DX: C61 Malignant neoplasm of prostate (principal); M81.0 Age-related osteoporosis without current pathological fracture
CPT/HCPCS: 36415; 80048

== ENCOUNTER 2020-08-03 04:19 | Outpatient (CLI) | payer MEDICAID, SELFPAY ==
[2020-08-03 10:54] LABS: Abs Immature Grans 0.01 10^3/uL (0.0-0.06); Absolute Basophil Count 0.04 10^3/uL (0.0-0.2); Absolute Eosinophil Count 0.05 10^3/uL (0.0-0.7); Absolute Lymphocyte Count 0.74 10^3/uL (1.2-3.4); Absolute Monocyte Count 0.45 10^3/uL (0.1-0.8); Absolute Neutrophil Count 3.29 10^3/uL (1.2-6.7); Basophils % 0.9; Eosinophils % 1.1; HCT 45.1 % (40.0-50.0); HGB 15.2 g/dL (13.5-17.5); Immature Grans % 0.2; Lymphocytes % 16.2; MCH 32.4 pg (27.0-33.0); MCHC 33.7 % (32.0-36.0); MCV 96.2 fL (80-95); MPV 8.7 fL (8.0-11.0); Monocytes % 9.8; Neutrophils % 71.8; Nucleated RBC 0 %; Platelet Count 192 10^3/uL (130-400); RBC 4.69 10^6/uL (4.36-5.78); RDW 12.8 % (11.8-14.1); RDW-SD 44.7 fL; WBC 4.58 10^3/uL (4.4-10.8)
[2020-08-03 11:07] LABS: ALT 48 U/L (16-63); AST 30 U/L (15-37); Albumin 3.7 g/dL (3.4-5.0); Alkaline Phosphatase 72 U/L (46-116); BUN 18 mg/dL (7-18); Bilirubin, Total 0.4 mg/dL (0.2-1.0); CREATININE 1.08 mg/dL (0.70-1.30); Calcium 8.9 mg/dL (8.5-10.1); Chloride 103 mmol/L (98-107); Glucose 104 mg/dL (74-106); Potassium 4.2 mmol/L (3.5-5.1); Sodium 136 mmol/L (136-145); Total Protein 7.3 g/dL (6.4-8.2)
[2020-08-05 11:14] LABS: PSA, Ultrasensitive 0.52 ng/mL (<= 4.5)
[2020-08-06 06:36] LABS: Testosterone, Total 447 ng/dL (240-950)
== END 2020-08-03 04:39 ==
PROVIDERS: Internal Medicine; PCP Emergency Medicine; Visit Provider Nurse Practitioner Family
DX: C61 Malignant neoplasm of prostate (principal)
CPT/HCPCS: 36415; 80053; 84153; 84403; 85025

== ENCOUNTER 2020-09-20 04:06 | Outpatient (CLI) | payer MEDICAID, SELFPAY ==
[2020-09-20 08:48] LABS: Abs Immature Grans 0.01 10^3/uL (0.0-0.06); Absolute Basophil Count 0.04 10^3/uL (0.0-0.2); Absolute Eosinophil Count 0.04 10^3/uL (0.0-0.7); Absolute Lymphocyte Count 0.66 10^3/uL (1.2-3.4); Absolute Monocyte Count 0.37 10^3/uL (0.1-0.8); HCT 45.4 % (40.0-50.0); HGB 15.1 g/dL (13.5-17.5); Immature Grans % 0.2; Lymphocytes % 16.4; MCH 32.4 pg (27.0-33.0); MCHC 33.3 % (32.0-36.0); MCV 97.4 fL (80-95); MPV 8.6 fL (8.0-11.0); Monocytes % 9.2; Neutrophils % 72.2; Nucleated RBC 0 %; Platelet Count 183 10^3/uL (130-400); RBC 4.66 10^6/uL (4.36-5.78); RDW 12.7 % (11.8-14.1); RDW-SD 45.1 fL; WBC 4.02 10^3/uL (4.4-10.8)
[2020-09-20 08:57] LABS: ALT 43 U/L (16-63); AST 23 U/L (15-37); Albumin 3.8 g/dL (3.4-5.0); Alkaline Phosphatase 68 U/L (46-116); Anion Gap 5.3 mmol/L (3-11); BUN 11 mg/dL (7-18); Bilirubin, Total 0.5 mg/dL (0.2-1.0); CO2 27.7 mmol/L (21.0-32.0); CREATININE 1.11 mg/dL (0.70-1.30); Calcium 8.4 mg/dL (8.5-10.1); Chloride 106 mmol/L (98-107); Glucose 106 mg/dL (74-106); Potassium 4.8 mmol/L (3.5-5.1); Sodium 139 mmol/L (136-145); Total Protein 7.3 g/dL (6.4-8.2)
[2020-09-22 10:56] LABS: PSA, Ultrasensitive 3.4 ng/mL (<= 4.5)
== END 2020-09-20 04:26 ==
PROVIDERS: PCP Emergency Medicine; Visit Provider Internal Medicine
DX: C61 Malignant neoplasm of prostate (principal)
CPT/HCPCS: 36415; 80053; 84153; 85025

== ENCOUNTER 2020-10-17 03:45 | Outpatient (CLI) | payer MEDICAID, SELFPAY ==
[2020-10-17 09:15] LABS: Abs Immature Grans 0.01 10^3/uL (0.0-0.06); Absolute Basophil Count 0.03 10^3/uL (0.0-0.2); Absolute Eosinophil Count 0.08 10^3/uL (0.0-0.7); Absolute Lymphocyte Count 0.69 10^3/uL (1.2-3.4); Absolute Monocyte Count 0.36 10^3/uL (0.1-0.8); Absolute Neutrophil Count 2.74 10^3/uL (1.2-6.7); Basophils % 0.8; HCT 46.1 % (40.0-50.0); HGB 15.4 g/dL (13.5-17.5); Immature Grans % 0.3; Lymphocytes % 17.6; MCH 32.4 pg (27.0-33.0); MCHC 33.4 % (32.0-36.0); MCV 97.1 fL (80-95); MPV 8.4 fL (8.0-11.0); Monocytes % 9.2; Neutrophils % 70.1; Nucleated RBC 0 %; Platelet Count 163 10^3/uL (130-400); RBC 4.75 10^6/uL (4.36-5.78); RDW 12.1 % (11.8-14.1); RDW-SD 43.7 fL; WBC 3.91 10^3/uL (4.4-10.8)
[2020-10-17 09:25] LABS: ALT 47 U/L (16-63); AST 24 U/L (15-37); Albumin 3.9 g/dL (3.4-5.0); Alkaline Phosphatase 68 U/L (46-116); Anion Gap 6.1 mmol/L (3-11); BUN 16 mg/dL (7-18); Bilirubin, Total 0.4 mg/dL (0.2-1.0); CO2 27.9 mmol/L (21.0-32.0); CREATININE 1.16 mg/dL (0.70-1.30); Calcium 8.8 mg/dL (8.5-10.1); Chloride 106 mmol/L (98-107); Glucose 102 mg/dL (74-106); Potassium 4.8 mmol/L (3.5-5.1); Sodium 140 mmol/L (136-145); Total Protein 7.4 g/dL (6.4-8.2)
[2020-10-18 16:25] LABS: PSA, Ultrasensitive 6.5 ng/mL (<= 4.5)
[2020-10-19 14:14] LABS: Testosterone, Total 528 ng/dL (240-950)
== END 2020-10-17 04:05 ==
PROVIDERS: PCP Emergency Medicine; Visit Provider Internal Medicine
DX: C61 Malignant neoplasm of prostate (principal)
CPT/HCPCS: 36415; 80053; 84153; 84403; 85025

== ENCOUNTER 2020-10-19 00:57 | Outpatient (CLI) | payer MEDICAID, SELFPAY ==
--- NOTE | 2020-10-19 | DI.NM_ITS ---
EXAM: NM BONE SCAN WHOLE BODY GRP CLINICAL HISTORY: PROSTATE CA,C61,RESTAGING EXAM. COMPARISON: NM WHOLE BODY BONE SCAN from 03/25/[address] ABDOMEN PELVIS WO from 09/28/2018 EXAMINATION: Whole body bone scan was performed with intravenous infusion of 27.0 millicuries of john hnetium 99 labeled methylene diphosphonate. Whole body imaging and oblique images of the pelvis were obtained. FINDINGS: There is a high intensity focus of increased uptake in the sacrum just to the right of midline seen m ost clearly on posterior whole body and posterior planar images. This corresponds to a sclerotic foc us identified in the sacrum on the right at the S2-S3 level which was not present on a prior abdomina l CT of September 2018. No other area of significantly increased uptake is seen on whole body or planar images. 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
--- NOTE | 2020-10-19 | DI.CT_ITS ---
EXAM: CT CHEST/ABD/PEL W CLINICAL HISTORY: PROSTATE CA,C61,RESTAGING EXAM TECHNIQUE: CT examination of the chest, abdomen, and pelvis was performed utilizing intravenous inf usion of 100 cc of Omnipaque 350 with biphasic hepatic imaging. Oral contrast was also administered. COMPARISON: CT CT ABDOMEN PELVIS WO from 09/28/2018 NM NM BONE SCAN WHOLE BODY GRP from 10/19/2020 FINDINGS: Lungs are predominantly clear with to noncalcified pulmonary nodules of the right upper lobe, 1 measu ring about 2 millimeters in diameter and the other about 3 millimeters in diameter.. No pleural effu christina. No pleural based mass. No mediastinal or hilar adenopathy. No axillary or supraclavicular adenopathy. Tracheobronchial vero e appears intact. No evidence of pulmonary embolic disease. Unremarkable appearance of thoracic aorta and major branch vessels. The liver appears normal with no focal hepatic lesion identified. Spleen is unremarkable in appearance. Pancreas appears intact. Adrenals appear normal. Kidneys are unremarkable in appearance with no renal mass, hydronephrosis, or nephrolithiasis. Abdominal aorta and major visceral branches appear intact. No focal bowel pathology. Appendix is normal. No evidence of diverticulitis. No abdominal or pelvic adenopathy. No significant abdominal wall hernia. There is a 16 millimeter in diameter sclerotic bony lesion of this sacrum at the S2-S3 level just to the right of midline. This corresponds to focal area of markedly increased uptake on whole body bone scan obtained today. Findings are highly suspicious for metastatic disease at this site. IMPRESSION: Sclerotic right sacral bony lesion as described above, this corresponds to a high-intensity lesion se en on today's bone scan and is highly suspicious for metastatic disease from reported prostate carcin lyndon. Otherwise negative CT of the chest, abdomen, and pelvis with biphasic hepatic imaging. RADIATION DOSE DELIVERED: 2,201.6mGy.cm Total DLP 2,201.6mGy.cm Total DLP
[2020-10-19 08:38] LABS: Abs Immature Grans 0.01 10^3/uL (0.0-0.06); Absolute Basophil Count 0.04 10^3/uL (0.0-0.2); Absolute Eosinophil Count 0.03 10^3/uL (0.0-0.7); Absolute Lymphocyte Count 0.72 10^3/uL (1.2-3.4); Absolute Monocyte Count 0.32 10^3/uL (0.1-0.8); Absolute Neutrophil Count 2.69 10^3/uL (1.2-6.7); Eosinophils % 0.8; HCT 47.1 % (40.0-50.0); HGB 15.7 g/dL (13.5-17.5); Immature Grans % 0.3; Lymphocytes % 18.9; MCH 32.4 pg (27.0-33.0); MCHC 33.3 % (32.0-36.0); MCV 97.3 fL (80-95); MPV 8.4 fL (8.0-11.0); Monocytes % 8.4; Neutrophils % 70.6; Nucleated RBC 0 %; Platelet Count 164 10^3/uL (130-400); RBC 4.84 10^6/uL (4.36-5.78); RDW 11.9 % (11.8-14.1); RDW-SD 42.8 fL; WBC 3.81 10^3/uL (4.4-10.8)
[2020-10-19 08:50] LABS: ALT 48 U/L (16-63); AST 24 U/L (15-37); Alkaline Phosphatase 72 U/L (46-116); Anion Gap 5.4 mmol/L (3-11); BUN 16 mg/dL (7-18); Bilirubin, Total 0.6 mg/dL (0.2-1.0); CO2 29.6 mmol/L (21.0-32.0); CREATININE 1.15 mg/dL (0.70-1.30); Calcium 8.8 mg/dL (8.5-10.1); Chloride 104 mmol/L (98-107); Glucose 103 mg/dL (74-106); Potassium 4.4 mmol/L (3.5-5.1); Sodium 139 mmol/L (136-145); Total Protein 7.6 g/dL (6.4-8.2)
[2020-10-19] MEDS: Omnipaque 350 MG/ML 50 ML BTL PO (09:21)
[2020-10-19] MEDS: Omnipaque 350 MG/ML 100 ML BTL IJ (10:01)
[2020-10-19] MEDS: Normal Saline - Diluent 50 ML VIAL IV (10:02)
[2020-10-19] MEDS: Normal Saline Flush 10 ML SYR IVP (10:04)
[2020-10-20 14:41] LABS: PSA, Ultrasensitive 6.4 ng/mL (<= 4.5)
[2020-10-22 15:40] LABS: Testosterone, Total 574 ng/dL (240-950)
== END 2020-10-19 01:17 ==
PROVIDERS: PCP Emergency Medicine; Visit Provider Internal Medicine
DX: C61 Malignant neoplasm of prostate (principal); M89.8X8 Other specified disorders of bone, other site
CPT/HCPCS: 74177; 78306; 80053; 84153; 84403; 71260; 85025; J3490; Q9967

== ENCOUNTER 2020-11-03 21:29 | Outpatient (REF) | payer MEDICAID, SELFPAY ==
[2020-11-03 15:10] LABS: Abs Immature Grans 0.02 10^3/uL (0.0-0.06); Absolute Basophil Count 0.06 10^3/uL (0.0-0.2); Absolute Eosinophil Count 0.08 10^3/uL (0.0-0.7); Absolute Lymphocyte Count 1.11 10^3/uL (1.2-3.4); Absolute Neutrophil Count 3.85 10^3/uL (1.2-6.7); Basophils % 1.1; Eosinophils % 1.4; HCT 45.3 % (40.0-50.0); HGB 15.6 g/dL (13.5-17.5); Immature Grans % 0.4; Lymphocytes % 19.8; MCH 32.6 pg (27.0-33.0); MCHC 34.4 % (32.0-36.0); MCV 94.6 fL (80-95); MPV 8.5 fL (8.0-11.0); Monocytes % 8.9; Neutrophils % 68.4; Nucleated RBC 0 %; Platelet Count 202 10^3/uL (130-400); RBC 4.79 10^6/uL (4.36-5.78); RDW 11.7 % (11.8-14.1); RDW-SD 40.7 fL; WBC 5.62 10^3/uL (4.4-10.8)
[2020-11-03 15:29] LABS: ALT 37 U/L (16-63); AST 22 U/L (15-37); Alkaline Phosphatase 75 U/L (46-116); Anion Gap 6.8 mmol/L (3-11); BUN 18 mg/dL (7-18); Bilirubin, Total 0.3 mg/dL (0.2-1.0); CO2 28.2 mmol/L (21.0-32.0); CREATININE 1.06 mg/dL (0.70-1.30); Calcium 8.6 mg/dL (8.5-10.1); Chloride 105 mmol/L (98-107); Glucose 73 mg/dL (74-106); Potassium 4.1 mmol/L (3.5-5.1); Sodium 140 mmol/L (136-145); Total Protein 7.7 g/dL (6.4-8.2)
[2020-11-04 17:39] LABS: PSA, Ultrasensitive 5.2 ng/mL (<= 4.5)
[2020-11-06 16:43] LABS: Testosterone, Total 17 ng/dL (240-950)
== END 2020-11-03 21:49 ==
LOC: LBN 21:29
PROVIDERS: PCP Emergency Medicine; Visit Provider Internal Medicine
DX: C61 Malignant neoplasm of prostate (principal)
CPT/HCPCS: 80053; 84153; 84403; 85025

== ENCOUNTER 2020-12-26 03:26 | Outpatient (CLI) | payer MEDICAID, SELFPAY ==
[2020-12-26 11:06] LABS: Abs Immature Grans 0.02 10^3/uL (0.0-0.06); Absolute Basophil Count 0.05 10^3/uL (0.0-0.2); Absolute Eosinophil Count 0.05 10^3/uL (0.0-0.7); Absolute Monocyte Count 0.38 10^3/uL (0.1-0.8); Absolute Neutrophil Count 3.14 10^3/uL (1.2-6.7); Basophils % 1.1; Eosinophils % 1.1; HGB 14.1 g/dL (13.5-17.5); Immature Grans % 0.4; Lymphocytes % 19.8; MCH 32.3 pg (27.0-33.0); MCHC 34.4 % (32.0-36.0); MCV 93.8 fL (80-95); MPV 8.5 fL (8.0-11.0); Monocytes % 8.4; Neutrophils % 69.2; Nucleated RBC 0 %; Platelet Count 183 10^3/uL (130-400); RBC 4.37 10^6/uL (4.36-5.78); RDW 12.2 % (11.8-14.1); RDW-SD 42.3 fL; WBC 4.54 10^3/uL (4.4-10.8)
[2020-12-26 11:21] LABS: ALT 43 U/L (16-63); AST 26 U/L (15-37); Albumin 3.8 g/dL (3.4-5.0); Alkaline Phosphatase 65 U/L (46-116); Anion Gap 10.7 mmol/L (3-11); BUN 16 mg/dL (7-18); Bilirubin, Total 0.5 mg/dL (0.2-1.0); CO2 25.3 mmol/L (21.0-32.0); CREATININE 0.9 mg/dL (0.70-1.30); Calcium 8.9 mg/dL (8.5-10.1); Chloride 105 mmol/L (98-107); Glucose 94 mg/dL (74-106); Potassium 4.2 mmol/L (3.5-5.1); Sodium 141 mmol/L (136-145); Total Protein 7.5 g/dL (6.4-8.2)
[2020-12-28 07:09] LABS: Testosterone, Total 16 ng/dL (240-950)
== END 2020-12-26 03:27 | disposition home or self-care (01) ==
LOC: LBO 03:26
PROVIDERS: PCP Emergency Medicine; Visit Provider Internal Medicine
DX: C61 Malignant neoplasm of prostate (principal)
CPT/HCPCS: 36415; 80053; 84153; 84403; 85025

== ENCOUNTER 2021-02-07 03:45 | Outpatient (CLI) | payer MEDICARE, MEDICAID, SELFPAY ==
[2021-02-07 12:41] LABS: Abs Immature Grans 0.01 10^3/uL (0.0-0.06); Absolute Basophil Count 0.03 10^3/uL (0.0-0.2); Absolute Eosinophil Count 0.06 10^3/uL (0.0-0.7); Absolute Lymphocyte Count 0.79 10^3/uL (1.2-3.4); Absolute Monocyte Count 0.42 10^3/uL (0.1-0.8); Absolute Neutrophil Count 3.21 10^3/uL (1.2-6.7); Basophils % 0.7; Eosinophils % 1.3; HCT 38.6 % (40.0-50.0); HGB 13.3 g/dL (13.5-17.5); Immature Grans % 0.2; Lymphocytes % 17.5; MCH 32.6 pg (27.0-33.0); MCHC 34.5 % (32.0-36.0); MCV 94.6 fL (80-95); MPV 8.2 fL (8.0-11.0); Monocytes % 9.3; Nucleated RBC 0 %; Platelet Count 194 10^3/uL (130-400); RBC 4.08 10^6/uL (4.36-5.78); RDW 12.7 % (11.8-14.1); RDW-SD 43.8 fL; WBC 4.52 10^3/uL (4.4-10.8)
[2021-02-07 13:55] LABS: ALT 40 U/L (16-63); AST 23 U/L (15-37); Albumin 3.8 g/dL (3.4-5.0); Alkaline Phosphatase 54 U/L (46-116); Anion Gap 10.9 mmol/L (3-11); BUN 26 mg/dL (7-18); Bilirubin, Total 0.5 mg/dL (0.2-1.0); CO2 26.1 mmol/L (21.0-32.0); Calcium 9.9 mg/dL (8.5-10.1); Chloride 107 mmol/L (98-107); Glucose 94 mg/dL (74-106); Potassium 4.5 mmol/L (3.5-5.1); Sodium 144 mmol/L (136-145)
[2021-02-08 14:15] LABS: PSA, Ultrasensitive 0.03 ng/mL (<= 4.5)
[2021-02-10 15:41] LABS: Testosterone, Total 13 ng/dL (240-950)
== END 2021-02-07 03:46 | disposition home or self-care (01) ==
LOC: LBO 03:46
PROVIDERS: PCP Emergency Medicine; Visit Provider Internal Medicine
DX: C61 Malignant neoplasm of prostate (principal)
CPT/HCPCS: 36415; 80053; 84153; 84403; 85025

== ENCOUNTER 2021-03-20 02:30 | Outpatient (CLI) | payer MEDICARE, MEDICAID, SELFPAY ==
[2021-03-20 09:35] LABS: Abs Immature Grans 0.02 10^3/uL (0.0-0.06); Absolute Basophil Count 0.04 10^3/uL (0.0-0.2); Absolute Eosinophil Count 0.12 10^3/uL (0.0-0.7); Absolute Monocyte Count 0.42 10^3/uL (0.1-0.8); Eosinophils % 2.9; HCT 41.3 % (40.0-50.0); HGB 13.9 g/dL (13.5-17.5); Immature Grans % 0.5; Lymphocytes % 21.4; MCH 32.8 pg (27.0-33.0); MCHC 33.7 % (32.0-36.0); MCV 97.4 fL (80-95); MPV 8.3 fL (8.0-11.0); Neutrophils % 64.2; Nucleated RBC 0 %; Platelet Count 202 10^3/uL (130-400); RBC 4.24 10^6/uL (4.36-5.78); RDW 12.2 % (11.8-14.1); RDW-SD 44.2 fL
[2021-03-20 10:52] LABS: ALT 40 U/L (16-63); AST 23 U/L (15-37); Albumin 3.9 g/dL (3.4-5.0); Alkaline Phosphatase 65 U/L (46-116); Anion Gap 10.3 mmol/L (3-11); BUN 23 mg/dL (7-18); Bilirubin, Total 0.4 mg/dL (0.2-1.0); CO2 28.7 mmol/L (21.0-32.0); Calcium 9.1 mg/dL (8.5-10.1); Chloride 105 mmol/L (98-107); Glucose 106 mg/dL (74-106); Potassium 4.4 mmol/L (3.5-5.1); Sodium 144 mmol/L (136-145); Total Protein 7.2 g/dL (6.4-8.2)
[2021-03-25 17:02] LABS: Testosterone, Total 23 ng/dL (240-950)
== END 2021-03-20 02:31 | disposition home or self-care (01) ==
LOC: LBO 02:30
PROVIDERS: PCP Emergency Medicine; Visit Provider Internal Medicine
DX: C61 Malignant neoplasm of prostate (principal)
CPT/HCPCS: 36415; 80053; 84403; 85025

== ENCOUNTER 2021-04-19 02:08 | Outpatient (CLI) | payer MEDICARE, MEDICAID, SELFPAY ==
--- NOTE | 2021-04-19 | DI.CT_ITS ---
Exam(s) CT CHEST/ABD/PEL W EXAM: CT CHEST/ABD/PEL W CLINICAL HISTORY: PROSTATE CA METASTATIC TO BONE,C61,C79.51,ANDROGEN DEPRIVATION THERAPY TECHNIQUE: Imaging Protocol: Axial computed tomography images with coronal and sagittal reformatted images were created and reviewed CONTRAST MATERIAL: Intravenous: Omnipaque 350 Contrast volume:100 mL Oral: Yes COMPARISON: CT CT CHEST/ABD/PEL W from 10/19/2020 FINDINGS: CHEST: Tracheobronchial tree: Patent where visualized. Pulmonary parenchyma: No consolidation or dominant measurable mass. There is scarring in the left rolan gula and left lower lobe. There are stable right upper lobe pulmonary nodules. No new pulmonary nod ules are present. Visualized thyroid gland: Unremarkable. Mediastinum and Zoë: No dominant adenopathy or fluid collection. Pleura: No effusion or pneumothorax. Heart: The heart is not dilated. No coronary artery calcifications are seen. No pericardial effusion. Aorta: Thoracic aorta non-dilated. Mild atherosclerosis. Lymph nodes: Within normal limits. Soft tissues: Unremarkable. Bones:Stable mild sclerotic endplate degenerative changes are seen. No new lytic or sclerotic lesion s are seen in the bones. ABDOMEN: Liver: Fatty infiltration. No measurable mass. Portal, Superior Mesenteric, and Splenic Veins: Unremarkable. Gallbladder and Biliary Tract: No radiodense calculus or dilation. Pancreas: Normal density, no abnormal calcifications or inflammatory process. Spleen: Normal. Adrenals: No masses seen. Kidneys: Normal size, contour and axis. No radiodense stones or obstructive uropathy. No masses seen. Circum aortic left renal vein. Abdominal Aorta: Abdominal portion non-dilated. Mild atherosclerosis. Bowel: No obstruction or bowel wall thickening. Normal retrocecal appendix. Small hiatal hernia. Peritoneal Cavity: No ascites, collection or mesenteric inflammatory response. No free air. Lymph Nodes: Within normal limits. Bones: Degenerative changes in the lumbar spine. There are stable sclerotic endplate findings in the lumbar spine. The sclerotic sacral lesion appears stable. No new areas of sclerosis are seen in th e lumbar spine or sacrum. Soft Tissues: Unremarkable. PELVIS: Bladder: Symmetric distention, no gross wall thickening. Reproductive Organs: No significant prostate tissue is seen. Lymph Nodes: Within normal limits. Bones: Please see above. IMPRESSION: 1. Stable appearance of the abdomen and pelvis. Stable sclerotic findings in the spine and sacrum. 2. Stable appearance of the chest. RADIATION DOSE DELIVERED: 2,239.33mGy.cm Total DLP DATA REPOSITORY: All CT scans at this facility are submitted to the National Radiology Data Registry (NRDR) Dose Index Registry (DIR) with the [employer] ([employer]). RADIATION OPTIMIZATION: All CT scans at this facility use at least one of these dose optimization te chniques: automated exposure control; mA and/or kV adjustment per patient size (includes targeted exa ms where dose is matched to clinical indication); or iterative reconstruction.
[2021-04-19] MEDS: Breeza Beverage 473 ML BTL PO ×2 (09:16→09:17)
--- NOTE | 2021-04-19 09:45 | DI.NM_ITS ---
Exam(s) NC BONE SCAN WHOLE BODY GRP EXAM: NC BONE SCAN WHOLE BODY GRP CLINICAL HISTORY: METASTATIC PROSTATE CA TO BONE,C61,C79.51,ANDROGEN. TECHNIQUE: Injected Dose: 25 mCi Tc-99m MDP Delayed Images: 2-3 hours. COMPARISON: [facility] BONE SCAN WHOLE BODY GRP from 10/19/[address] CHEST/ABD/PEL W from 04/19/2021 FINDINGS: Symmetric axial uptake. Bilateral renal excretion is identified. There is again seen a solitary focus of increased radiotracer uptake in the right sacrum at the S2-S3 level. This is unchanged. No new radiotracer uptake is seen. IMPRESSION: 1. Stable solitary focus of increased uptake in the right sacrum suspicious for metastasis. DATA REPOSITORY:
[2021-04-19] MEDS: Omnipaque 350 MG/ML 100 ML BTL IJ (11:44)
[2021-04-19] MEDS: Normal Saline - Diluent 50 ML VIAL IV (11:45)
== END 2021-04-19 02:28 ==
PROVIDERS: PCP Emergency Medicine; Visit Provider Nurse Practitioner Adult Health
DX: C61 Malignant neoplasm of prostate (principal); C79.51 Secondary malignant neoplasm of bone; Z12.89 Encounter for screening for malignant neoplasm of other sites; K76.0 Fatty (change of) liver, not elsewhere classified; Z79.899 Other long term (current) drug therapy
CPT/HCPCS: 74177; 78306; 71260; J3490

== ENCOUNTER 2021-04-25 04:01 | Outpatient (CLI) | payer MEDICARE, MEDICAID, SELFPAY ==
[2021-04-25 08:38] LABS: Abs Immature Grans 0.02 10^3/uL (0.0-0.06); Absolute Basophil Count 0.03 10^3/uL (0.0-0.2); Absolute Eosinophil Count 0.07 10^3/uL (0.0-0.7); Absolute Lymphocyte Count 0.84 10^3/uL (1.2-3.4); Absolute Monocyte Count 0.42 10^3/uL (0.1-0.8); Absolute Neutrophil Count 2.99 10^3/uL (1.2-6.7); Basophils % 0.7; Eosinophils % 1.6; HCT 39.8 % (40.0-50.0); HGB 13.6 g/dL (13.5-17.5); Immature Grans % 0.5; Lymphocytes % 19.2; MCH 33.1 pg (27.0-33.0); MCHC 34.2 % (32.0-36.0); MCV 96.8 fL (80-95); MPV 8.5 fL (8.0-11.0); Monocytes % 9.6; Neutrophils % 68.4; Nucleated RBC 0 %; Platelet Count 192 10^3/uL (130-400); RBC 4.11 10^6/uL (4.36-5.78); RDW 12.1 % (11.8-14.1); RDW-SD 43.3 fL; WBC 4.37 10^3/uL (4.4-10.8)
[2021-04-25 09:42] LABS: ALT 31 U/L (16-63); AST 20 U/L (15-37); Albumin 3.8 g/dL (3.4-5.0); Alkaline Phosphatase 74 U/L (46-116); Anion Gap 10.2 mmol/L (3-11); BUN 30 mg/dL (7-18); Bilirubin, Total 0.7 mg/dL (0.2-1.0); CO2 24.8 mmol/L (21.0-32.0); CREATININE 1.2 mg/dL (0.70-1.30); Calcium 9.3 mg/dL (8.5-10.1); Chloride 103 mmol/L (98-107); Glucose 115 mg/dL (74-106); Potassium 4.4 mmol/L (3.5-5.1); Sodium 138 mmol/L (136-145); Total Protein 7.2 g/dL (6.4-8.2)
[2021-04-26 15:03] LABS: PSA, Ultrasensitive 0.02 ng/mL (<= 4.5)
[2021-04-27 11:33] LABS: Testosterone, Total 12 ng/dL (240-950)
== END 2021-04-25 04:02 | disposition home or self-care (01) ==
LOC: LBO 04:01
PROVIDERS: PCP Emergency Medicine; Visit Provider Internal Medicine
DX: C61 Malignant neoplasm of prostate (principal)
CPT/HCPCS: 36415; 80053; 84153; 84403; 85025

== ENCOUNTER 2021-08-01 01:47 | Outpatient (CLI) | payer MEDICARE, MEDICAID, SELFPAY ==
[2021-08-01 11:41] LABS: Abs Immature Grans 0.02 10^3/uL (0.0-0.06); Absolute Basophil Count 0.03 10^3/uL (0.0-0.2); Absolute Eosinophil Count 0.02 10^3/uL (0.0-0.7); Absolute Lymphocyte Count 0.74 10^3/uL (1.2-3.4); Absolute Monocyte Count 0.38 10^3/uL (0.1-0.8); Absolute Neutrophil Count 2.64 10^3/uL (1.2-6.7); Basophils % 0.8; Eosinophils % 0.5; HCT 38.1 % (40.0-50.0); HGB 12.8 g/dL (13.5-17.5); Immature Grans % 0.5; Lymphocytes % 19.3; MCH 32.9 pg (27.0-33.0); MCHC 33.6 % (32.0-36.0); MCV 97.9 fL (80-95); MPV 8.5 fL (8.0-11.0); Monocytes % 9.9; Nucleated RBC 0 %; Platelet Count 164 10^3/uL (130-400); RBC 3.89 10^6/uL (4.36-5.78); RDW 12.6 % (11.8-14.1); WBC 3.83 10^3/uL (4.4-10.8)
[2021-08-01 12:41] LABS: ALT 42 U/L (16-63); AST 23 U/L (15-37); Albumin 3.9 g/dL (3.4-5.0); Alkaline Phosphatase 68 U/L (46-116); Anion Gap 10.8 mmol/L (3-11); BUN 15 mg/dL (7-18); Bilirubin, Total 0.5 mg/dL (0.2-1.0); CO2 25.2 mmol/L (21.0-32.0); Calcium 8.5 mg/dL (8.5-10.1); Chloride 107 mmol/L (98-107); Glucose 95 mg/dL (74-106); Potassium 4.8 mmol/L (3.5-5.1); Sodium 143 mmol/L (136-145)
[2021-08-03 11:06] LABS: PSA, Ultrasensitive <0.01 ng/mL (<= 4.5)
[2021-08-04 17:36] LABS: Testosterone, Total 12 ng/dL (240-950)
== END 2021-08-01 01:48 | disposition home or self-care (01) ==
LOC: LBO 01:47
PROVIDERS: Internal Medicine; PCP Emergency Medicine; Visit Provider Emergency Medicine
DX: C61 Malignant neoplasm of prostate (principal)
CPT/HCPCS: 36415; 80053; 84153; 84403; 85025

== ENCOUNTER 2021-10-31 03:08 | Outpatient (CLI) | payer MEDICARE, MEDICAID, SELFPAY ==
[2021-10-31 12:29] LABS: Abs Immature Grans 0.01 10^3/uL (0.0-0.06); Absolute Basophil Count 0.03 10^3/uL (0.0-0.2); Absolute Eosinophil Count 0.03 10^3/uL (0.0-0.7); Absolute Lymphocyte Count 1.02 10^3/uL (1.2-3.4); Absolute Monocyte Count 0.37 10^3/uL (0.1-0.8); Absolute Neutrophil Count 2.39 10^3/uL (1.2-6.7); Basophils % 0.8; Eosinophils % 0.8; HCT 40.4 % (40.0-50.0); HGB 13.4 g/dL (13.5-17.5); Immature Grans % 0.3; Lymphocytes % 26.5; MCH 32.8 pg (27.0-33.0); MCHC 33.2 % (32.0-36.0); MPV 8.2 fL (8.0-11.0); Monocytes % 9.6; Nucleated RBC 0 %; Platelet Count 175 10^3/uL (130-400); RBC 4.08 10^6/uL (4.36-5.78); RDW 11.9 % (11.8-14.1); RDW-SD 43.2 fL; WBC 3.85 10^3/uL (4.4-10.8)
[2021-10-31 12:45] LABS: ALT 32 U/L (16-63); AST 21 U/L (15-37); Alkaline Phosphatase 63 U/L (46-116); Anion Gap 6.7 mmol/L (3-11); BUN 27 mg/dL (7-18); Bilirubin, Total 0.5 mg/dL (0.2-1.0); CO2 28.3 mmol/L (21.0-32.0); Chloride 104 mmol/L (98-107); Glucose 96 mg/dL (74-106); Potassium 4.5 mmol/L (3.5-5.1); Sodium 139 mmol/L (136-145); Total Protein 7.5 g/dL (6.4-8.2)
[2021-11-01 22:43] LABS: PSA, Ultrasensitive <0.01 ng/mL (<= 4.5)
[2021-11-09 13:48] LABS: Testosterone, Total 13 ng/dL (240-950)
== END 2021-10-31 03:09 | disposition home or self-care (01) ==
PROVIDERS: PCP Emergency Medicine; Visit Provider Nurse Practitioner Adult Health
DX: C61 Malignant neoplasm of prostate (principal); C79.51 Secondary malignant neoplasm of bone; Z79.818 Long term (current) use of other agents affecting estrogen receptors and estrogen levels
CPT/HCPCS: 36415; 80053; 84153; 84403; 85025

== ENCOUNTER 2021-12-20 03:19 | Outpatient (CLI) | payer MEDICARE, SELFPAY ==
[2021-12-20 11:03] LABS: Anion Gap 10.8 mmol/L (3-11); BUN 22 mg/dL (7-18); CO2 28.2 mmol/L (21.0-32.0); Calcium 8.7 mg/dL (8.5-10.1); Calculated LDL 115 mg/dL (<100); Chloride 103 mmol/L (98-107); Cholesterol 188 mg/dL (<200); Glucose 97 mg/dL (74-106); HDL Cholesterol 54 mg/dL (40-60); Potassium 4.5 mmol/L (3.5-5.1); Sodium 142 mmol/L (136-145); Triglyceride 98 mg/dL (<150)
== END 2021-12-20 03:20 | disposition home or self-care (01) ==
LOC: LBO 03:19
PROVIDERS: Emergency Medicine; PCP Family Medicine; Visit Provider Family Medicine
DX: I10 Essential (primary) hypertension (principal)
CPT/HCPCS: 36415; 80048; 80061

== ENCOUNTER 2022-01-23 04:19 | Outpatient (CLI) | payer MEDICARE, SELFPAY ==
[2022-01-23 10:28] LABS: Abs Immature Grans 0.04 10^3/uL (0.0-0.06); Absolute Basophil Count 0.06 10^3/uL (0.0-0.2); Absolute Eosinophil Count 0.05 10^3/uL (0.0-0.7); Absolute Lymphocyte Count 1.05 10^3/uL (1.2-3.4); Absolute Monocyte Count 0.53 10^3/uL (0.1-0.8); Absolute Neutrophil Count 4.01 10^3/uL (1.2-6.7); Eosinophils % 0.9; HCT 43.8 % (40.0-50.0); HGB 14.4 g/dL (13.5-17.5); Immature Grans % 0.7; Lymphocytes % 18.3; MCH 32.6 pg (27.0-33.0); MCHC 32.9 % (32.0-36.0); MCV 99.1 fL (80-95); MPV 8.1 fL (8.0-11.0); Monocytes % 9.2; Neutrophils % 69.9; Nucleated RBC 0 %; Platelet Count 195 10^3/uL (130-400); RBC 4.42 10^6/uL (4.36-5.78); RDW 12.2 % (11.8-14.1); RDW-SD 44.1 fL; WBC 5.74 10^3/uL (4.4-10.8)
[2022-01-23 11:26] LABS: ALT 39 U/L (16-63); AST 22 U/L (15-37); Alkaline Phosphatase 56 U/L (46-116); Anion Gap 8.2 mmol/L (3-11); BUN 24 mg/dL (7-18); Bilirubin, Total 0.5 mg/dL (0.2-1.0); CO2 27.8 mmol/L (21.0-32.0); CREATININE 1.1 mg/dL (0.70-1.30); Calcium 9.1 mg/dL (8.5-10.1); Chloride 105 mmol/L (98-107); Glucose 92 mg/dL (74-106); Potassium 4.5 mmol/L (3.5-5.1); Sodium 141 mmol/L (136-145); Total Protein 7.2 g/dL (6.4-8.2)
[2022-01-24 17:16] LABS: PSA, Ultrasensitive <0.01 ng/mL (<= 4.5)
[2022-01-27 16:20] LABS: Testosterone, Total <7.0 ng/dL (240-950)
== END 2022-01-23 04:20 | disposition home or self-care (01) ==
LOC: LBO 04:19
PROVIDERS: Nurse Practitioner Adult Health; PCP Family Medicine; Visit Provider Internal Medicine
DX: C61 Malignant neoplasm of prostate (principal); Z79.818 Long term (current) use of other agents affecting estrogen receptors and estrogen levels
CPT/HCPCS: 36415; 80053; 84153; 84403; 85025

== ENCOUNTER 2022-02-12 13:40 | Outpatient (CLI) | payer MEDICARE, SELFPAY ==
--- NOTE | 2022-02-12 13:30 | RT.EKG_ITS ---
APPROVED REPORT Exam: Resting ECG Reason for Exam: chest pain Patient Location: O HR:62 bpm ECG Measurements Heart Rate 62 AXIS MD 155 P 56 QRSd 64 QRS 32 QT 407 T 23 QTc 415 Conclusion Sinus rhythm...normal P axis, V-rate 60- 99 Normal Electrocardiogram
== END 2022-02-12 13:41 | disposition home or self-care (01) ==
LOC: DI.CM 13:41
PROVIDERS: PCP Family Medicine; Visit Provider Family Medicine
DX: R07.9 Chest pain, unspecified (principal)
CPT/HCPCS: 93010

== ENCOUNTER → 2022-02-12 14:36 | Outpatient (CLI) | payer MEDICARE, SELFPAY ==
--- NOTE | 2022-02-12 14:32 | DI.RAD_ITS ---
Exam(s) XR CHEST 2V PA LATERAL EXAM: XR CHEST 2V PA LATERAL CLINICAL HISTORY: recurrent atypical CP, AHN, no wheeze on exam, R06.09, R07.9, J45.909 TECHNIQUE: 2D digital imaging was performed. COMPARISON: CT CT CHEST/ABD/PEL W from 04/19/2021 FINDINGS: MEDIASTINUM: Normal. HEART: Normal. Aorta mildly tortuous. PULMONARY VASCULATURE: Normal. LUNGS: Clear. No visible emphysematous or fibrotic changes. PLEURAL SPACE: No pleural effusion or pneumothorax. BONE:Mild degenerative changes in the spine. IMPRESSION: No acute abnormality. DATA REPOSITORY: RADIATION DOSE DELIVERED:
== END ==
PROVIDERS: PCP Family Medicine; Visit Provider Family Medicine
DX: R06.09 Other forms of dyspnea (principal); R07.9 Chest pain, unspecified; J45.909 Unspecified asthma, uncomplicated
CPT/HCPCS: 71046

== ENCOUNTER → 2022-02-19 00:42 | Outpatient (CLI) | payer MEDICARE, SELFPAY ==
--- NOTE | 2022-02-19 09:00 | ETT_ITS ---
APPROVED REPORT Exam: Exercise Treadmill Patient Location: Out-Patient Room/Bed: Stress Nurse: Lucia Begum RN Ordering Provider:KLEBER GAFFNEY, Contact Number: [phone] BMI: 35.50 Baseline Rhythm: Sinus Rhythm Comment: T wave inversions noted in leads III and V6 Indications: RECURRENT DYSPNEA ON EXERTION WITH CHEST PAIN Medical History Medical History: HTD, HLD, AHN, Asthma, Prostate Cancer Cardiac Medications: Pravastatin, Metformin, Lisinopril, Budesonide-formoterol HFA, Albuterol sulfate , Allergies: PCN, Oxycodone, Atorvastatin Cardiac Risk Factors: FHX of CAD, HTN, Hyperlipidemia, Asthma, Obesity Previous Cardiac Procedures: None Pretest Chest Pain Characteristics: None Exercise History: Indeterminate Physical Disabilities: None Lung Sounds: Clear to auscultation, Clear to auscultation Heart Sounds: Regular Stress Test Details Test: Exercise stress testing was performed using a Joshua protocol. Rest Stress HR Resting HR Supine: 61 bpm Max Heart Rate (APMHR): 154 bpm Resting HR Standin bpm Target HR (85% APMHR): 130 bpm Max HR Achieved: 145 bpm % of APMHR: 94 Recovery HR: 71 bpm HR response to stress: Normal HR response to stress BP Resting BP Supine: 152/78 mmHg Resting BP Standin/80 mmHg Max BP: 212/84 mmHg Recovery BP: 158/74 mmHg BP response to stress: Normal blood pressure response to stress. Comment: Hypertensive at baseline ECG Resting ECG: Sinus Rhythm Ectopy: PVCs Comment: T wave inversions noted in leads III and V6 Stress ECG: Sinus Tachycardia ST Change: No significant ST segment changes noted Arrhythmia: occasional PAC, PVCs Recovery ECG: Sinus Rhythm Recovery ST Change: No significant ST segment changes noted Recovery Arrhythmia: PVCs Comment: Upright T waves noted in leads III and V6 during recovery, returning to baseline inversions by minute 5. Clinical Reason for Termination: Fatigue Stress Symptoms: Dyspnea, General Fatigue Exercise duration: 7 min14 sec Highest Stage Reached: Stage 3: 3.4 mph at 14% grade. Exercise capacity: 8.96 METs Butler Treadmill Score: 6.6 Rate Pressure Product: [id number] Stress ECG Conclusion 1. Resting electrocardiogram showed voltage for left ventricular hypertrophy, minor ST abnormalities 2. Patient exercised on the Joshua protocol completed a workload of 8.96 METS 3. Normal heart rate and blood pressure response to exercise. The patient achieved 94% of predicted heart rate for age 4. There was no electrocardiographic evidence of myocardial ischemia 5. Occasional atrial and ventricular ectopic beats were seen Butler Treadmill Score is 6.6 which is Low risk. Stress Test Summary STAGE Time (mins) Speed (mph) Grade (%) HR BP SYMPTOMS METS Supine 61 152/78 Standing 66 154/80 SpO2 99% 1 3 1.7 10 109 180/80 SpO2 98% 4.6 2 6 2.5 12 128 180/78 7 1 min recovery 122 210/82 SpO2 98% 3 min recovery 78 212/84 6 min recovery 71 158/74 Patient accidently hit the emergency stop button in stage 2, causing treadmill communication error. I ssue identified within 30 seconds and stress test proceeded as before.
== END ==
PROVIDERS: PCP Family Medicine; Visit Provider Family Medicine
DX: R07.89 Other chest pain (principal); R06.09 Other forms of dyspnea
CPT/HCPCS: 93016; 93018; 93017

== ENCOUNTER 2022-03-12 05:26 | Outpatient (CLI) | payer MEDICARE, SELFPAY ==
[2022-03-12] MEDS: Albuterol HFA 18 GM 200 PUFF INH IH (14:10)
[2022-03-12] MEDS: Inhaler, Assist Device 1 EACH MC (14:11)
== END 2022-03-12 05:27 | disposition home or self-care (01) ==
LOC: RT 05:26
PROVIDERS: PCP Family Medicine; Visit Provider Family Medicine
DX: J45.909 Unspecified asthma, uncomplicated (principal); R06.02 Shortness of breath; R94.2 Abnormal results of pulmonary function studies
CPT/HCPCS: 94060

== ENCOUNTER 2022-03-28 16:36 | Outpatient (REF) | payer MEDICARE, SELFPAY, MEDICAID ==
[2022-03-30 11:11] LABS: COVID-19 RT-PCR UVMMC Result Negative (Negative)
== END 2022-03-28 16:37 | disposition home or self-care (01) ==
LOC: LBN 16:36
PROVIDERS: PCP Family Medicine; Visit Provider Physician Assistant
DX: Z20.822 Contact with and (suspected) exposure to COVID-19 (principal)
CPT/HCPCS: U0003

== ENCOUNTER 2022-05-01 02:21 | Outpatient (CLI) | payer MEDICARE, MEDICAID, SELFPAY ==
[2022-05-01 13:28] LABS: Abs Immature Grans 0.02 10^3/uL (0.0-0.06); Absolute Basophil Count 0.03 10^3/uL (0.0-0.2); Absolute Eosinophil Count 0.05 10^3/uL (0.0-0.7); Absolute Lymphocyte Count 1.04 10^3/uL (1.2-3.4); Absolute Monocyte Count 0.49 10^3/uL (0.1-0.8); Absolute Neutrophil Count 2.89 10^3/uL (1.2-6.7); Basophils % 0.7; Eosinophils % 1.1; HGB 13.8 g/dL (13.5-17.5); Immature Grans % 0.4; MCH 32.4 pg (27.0-33.0); MCHC 33.7 % (32.0-36.0); MCV 96 fL (80-95); MPV 8.3 fL (8.0-11.0); Monocytes % 10.8; Platelet Count 225 10^3/uL (130-400); RBC 4.26 10^6/uL (4.36-5.78); RDW 12.8 % (11.8-14.1); RDW-SD 44.2 fL; WBC 4.52 10^3/uL (4.4-10.8)
[2022-05-01 14:12] LABS: ALT 24 U/L (16-63); AST 22 U/L (15-37); Albumin 3.8 g/dL (3.4-5.0); Alkaline Phosphatase 71 U/L (46-116); Anion Gap 8.9 mmol/L (3-11); BUN 27 mg/dL (7-18); Bilirubin, Total 0.6 mg/dL (0.2-1.0); CO2 27.1 mmol/L (21.0-32.0); CREATININE 1.2 mg/dL (0.70-1.30); Calcium 9.1 mg/dL (8.5-10.1); Chloride 103 mmol/L (98-107); Glucose 103 mg/dL (74-106); Potassium 4.5 mmol/L (3.5-5.1); Sodium 139 mmol/L (136-145); Total Protein 7.5 g/dL (6.4-8.2)
[2022-05-02 16:28] LABS: PSA, Ultrasensitive <0.01 ng/mL (<= 4.5)
[2022-05-03 16:52] LABS: Testosterone, Total 11 ng/dL (240-950)
== END 2022-05-01 02:22 | disposition home or self-care (01) ==
LOC: LBO 02:21
PROVIDERS: PCP Family Medicine; Visit Provider Internal Medicine
DX: C61 Malignant neoplasm of prostate (principal); C79.51 Secondary malignant neoplasm of bone; Z79.818 Long term (current) use of other agents affecting estrogen receptors and estrogen levels
CPT/HCPCS: 36415; 80053; 84153; 84403; 85025

== ENCOUNTER 2022-05-01 02:30 | Outpatient (CLI) | payer MEDICARE, MEDICAID, SELFPAY | END 2022-05-01 02:31 | disposition home or self-care (01) | LOC: LBO 02:30 | PROVIDERS: PCP Family Medicine; Visit Provider Internal Medicine ==

== ENCOUNTER 2022-08-13 02:40 | Outpatient (CLI) | payer MEDICARE, SELFPAY ==
[2022-08-15 13:10] LABS: PSA, Ultrasensitive <0.01 ng/mL (<= 4.5)
[2022-08-16 17:47] LABS: Testosterone, Total 13 ng/dL (240-950)
== END 2022-08-13 02:41 | disposition home or self-care (01) ==
LOC: LBO 02:42
PROVIDERS: Nurse Practitioner Adult Health; PCP Family Medicine; Visit Provider Internal Medicine
DX: C61 Malignant neoplasm of prostate (principal); Z79.818 Long term (current) use of other agents affecting estrogen receptors and estrogen levels
CPT/HCPCS: 36415; 84153; 84403

== ENCOUNTER 2022-11-04 09:09 | Emergency (ER) | payer MEDICARE, SELFPAY ==
--- NOTE | 2022-11-04 09:15 | RT.EKG_ITS ---
APPROVED REPORT Exam: Resting ECG Reason for Exam: sob Patient Location: E HR:61 bpm ECG Measurements Heart Rate 61 AXIS NE 154 P 53 QRSd 67 QRS 26 QT 410 T 46 QTc 414 Conclusion Sinus rhythm...normal P axis, V-rate 60- 99 Physician: no stemi
[2022-11-04 09:21] VITALS: BP 153/70; PULSE 65; RESP 16; TEMP 36.6; O2SAT 99
--- NOTE | 2022-11-04 09:25 | ED.GENADUL_ITS ---
Discharge Plan Disposition Patient Disposition: Home Condition: Stable Discharge Details Clinical Impression: COVID, Dyspnea Primary Care Provider: Royce Bishop. ED Provider: Rodolfo Easton Home Meds and New Rx's Prescriptions: New albuterol sulfate 2.5 mg /3 mL (0.083 %) solution for nebulization 2.5 mg inhalation QID PRNQty: 90 0RF Continued calcium carbonate-vitamin D3 [Calcium 600 with Vitamin D3] 600 mg-12.5 mcg (500 unit) capsule 2 cap PO DAILY Prolia 60 mg/mL syringe 60 mg subcut [id number] Qty: 1 0RF benzonatate 100 mg capsule 100 mg PO TID PRN (Reason: cough) Qty: 14 0RF lisinopril 10 mg tablet 15 mg PO DAILY Qty: 90 3RF Rx Instructions: dose increase September 25, 2022 enzalutamide 40 mg capsule 120 mg PO DAILY budesonide-formoterol [Symbicort] 80-4.5 mcg/actuation HFA aerosol inhaler 2 puff IH BID Qty: 10.2 11RF albuterol sulfate [ProAir HFA] 90 mcg/actuation HFA aerosol inhaler 2 puff IH QID Qty: 18 11RF pravastatin 40 mg tablet 40 mg PO HS Qty: 90 3RF Discharge Instructions Instructions: Dyspnea (ED), COVID-19 (Coronavirus Disease 2019) (ED) Additional Instructions: Overall your work-up here in the ER appears reassuring. Your chest x-ray is clear and your oxygen level is 99%. Symptoms are likely secondary to your ongoing COVID infection. I will provide you a prescription for your albuterol nebs as you do not have any more of those for your home treatment. No clear indication to initiate antibiotic therapy. Please watch for new or worsening symptoms and return to the ER for any concerns. Lastly, I would like you to contact your primary care provider tomorrow to discuss your ER visit, ongoing symptoms, and need for outpatient reevaluation. Medical Decision Making This is a 67-year-old gentleman, DNR, DNI, past medical history of asthma, hypertension, prostate cancer, who had COVID 2 weeks ago, presents for ongoing mild dry cough but now with subjective sensation of shortness of breath and some chest tightness. He states his symptoms were worse yesterday. Nothing makes them worse or better. He denies any chest pain whatsoever. Patient states he does not have any more nebs at home but otherwise been taking his medications as directed. Contacted his PCP and recommended coming to the ER. Patient concern for secondary pneumonia. Clinically he appears well, nontoxic. Pulse in the 60s, respirations 16, afebrile, O2 sat 99% on room air. Extremely low suspicion for cardiac etiology, heart failure, PE, etc. Given the duration of his symptoms a single EKG and troponin should be sufficient for cardiac rule out. We will also obtain chest x-ray and a D-dimer, if D-dimer is positive will pursue CTA of the chest. Laboratory values did not reveal any evidence of leukocytosis, D-dimer is a 461, will not pursue CTA. Electrolytes unremarkable creatinine 1.0 with a GFR of 74.04, magnesium 1.9 troponin less than 50 BNP 67. Patient remains COVID- positive, flu and RSV negative. Chest x-ray clear. Likely secondary to his ongoing COVID infection. No clear indication to initiate antibiotics. Again his O2 sat is 99% on room air. He is out of his nebs and I will provide albuterol nebs via a prescription. Standard discharge and return precautions were provided. Patient understands, is agreeable to this plan, and has no additional questions or concerns upon discharge. This documentation was generated using [employer] system, please disregard any oddities of phrase or misspellings. Medical Records Medical records reviewed: Yes I reviewed the patient's medical records. Imaging Data Radiologic Study: Attestation: I personally reviewed and interpreted this imaging study as follows: Imaging: X-Ray Radiologist's impression: PROCEDURE INFORMATION: Exam: XR Chest Exam date and time: 11/04/2022 10:08 AM Age: 67 years old Clinical indication: Cough TECHNIQUE: Imaging protocol: Radiologic exam of the chest. Views: 2 views. COMPARISON: CR XR CHEST 2V PA LATERAL 02/12/2022 2:21 PM FINDINGS: Lungs: Unremarkable. No consolidation. Pleural spaces: Unremarkable. No pleural effusion. No pneumothorax. Heart/Mediastinum: Unremarkable. No cardiomegaly. Bones/joints: Unremarkable. IMPRESSION: No acute findings. Lab Data Lab results reviewed: Yes I reviewed the patient's lab results. Labs: Laboratory Tests Range/Units 11/04/22 11/04/22 11/04/22 09:51 09:55 09:55 WBC (4.4-10.8) 10^3/uL RBC (4.36-5.78) 10^6/uL Hgb (13.5-17.5) g/dL Hct (40.0-50.0) % MCV (80-95) fL MCH (27.0-33.0) pg MCHC (32.0-36.0) % RDW (11.8-14.1) % Plt Count (130-400) 10^3/uL MPV (8.0-11.0) fL Immature Gran % Neutrophils % Lymphocytes % Monocytes % Eosinophils % Basophils % Nucleated RBC % (0.0-0.3) % Absolute Neutrophils (1.2-6.7) 10^3/uL Absolute Lymphocytes (1.2-3.4) 10^3/uL Absolute Monocytes (0.1-0.8) 10^3/uL Absolute Eosinophils (0.0-0.7) 10^3/uL Absolute Basophils (0.0-0.2) 10^3/uL D-Dimer (<500) ng/mlFEU 461 Sodium (136-145) mmol/L 139 Potassium (3.5-5.1) mmol/L 4.5 Chloride (98-107) mmol/L 103 Carbon Dioxide (21.0-32.0) mmol/L 28.5 Anion Gap (3-11) mmol/L 7.5 BUN (7-18) mg/dL 24 H Creatinine (0.70-1.30) mg/dL 1.1 Est GFR (CKD-EPI 2020) (mL/min/1.73m2) 74.04 Glucose (74-106) mg/dL 110 H Calcium (8.5-10.1) mg/dL 9.2 Magnesium (1.8-2.4) mg/dL 1.9 Total Bilirubin (0.2-1.0) mg/dL 0.4 AST (15-37) U/L 24 ALT (16-63) U/L 32 Alkaline Phosphatase (46-116) U/L 67 Troponin I (<or=60) ng/L < 50 NT-Pro-B Natriuret Pep (<300) pg/mL 67 Total Protein (6.4-8.2) g/dL 7.4 Albumin (3.4-5.0) g/dL 3.8 COVID-19 Source Not Applicable SARS-CoV-2 (PCR) (Negative) Positive A Influenza Type A (PCR) (Negative) Negative Influenza Type B (PCR) (Negative) Negative RSV (PCR) (Negative) Negative Range/Units 11/04/22 11/04/22 09:55 09:55 WBC (4.4-10.8) 10^3/uL 4.00 L RBC (4.36-5.78) 10^6/uL 4.05 L Hgb (13.5-17.5) g/dL 13.4 L Hct (40.0-50.0) % 39.8 L MCV (80-95) fL 98 H MCH (27.0-33.0) pg 33.1 H MCHC (32.0-36.0) % 33.7 RDW (11.8-14.1) % 11.8 Plt Count (130-400) 10^3/uL 204 MPV (8.0-11.0) fL 8.1 Immature Gran % 0.5 Neutrophils % 67.2 Lymphocytes % 21.8 Monocytes % 9.0 Eosinophils % 1.0 Basophils % 0.5 Nucleated RBC % (0.0-0.3) % 0.0 Absolute Neutrophils (1.2-6.7) 10^3/uL 2.69 Absolute Lymphocytes (1.2-3.4) 10^3/uL 0.87 L Absolute Monocytes (0.1-0.8) 10^3/uL 0.36 Absolute Eosinophils (0.0-0.7) 10^3/uL 0.04 Absolute Basophils (0.0-0.2) 10^3/uL 0.02 D-Dimer (<500) ng/mlFEU Sodium (136-145) mmol/L Cancelled Potassium (3.5-5.1) mmol/L Cancelled Chloride (98-107) mmol/L Cancelled Carbon Dioxide (21.0-32.0) mmol/L Cancelled Anion Gap (3-11) mmol/L Cancelled BUN (7-18) mg/dL Cancelled Creatinine (0.70-1.30) mg/dL Cancelled Est GFR (CKD-EPI 2020) (mL/min/1.73m2) Cancelled Glucose (74-106) mg/dL Cancelled Calcium (8.5-10.1) mg/dL Cancelled Magnesium (1.8-2.4) mg/dL Total Bilirubin (0.2-1.0) mg/dL Cancelled AST (15-37) U/L Cancelled ALT (16-63) U/L Cancelled Alkaline Phosphatase (46-116) U/L Cancelled Troponin I (<or=60) ng/L NT-Pro-B Natriuret Pep (<300) pg/mL Total Protein (6.4-8.2) g/dL Cancelled Albumin (3.4-5.0) g/dL Cancelled COVID-19 Source SARS-CoV-2 (PCR) (Negative) Influenza Type A (PCR) (Negative) Influenza Type B (PCR) (Negative) RSV (PCR) (Negative) ECG Data Attestation: I personally reviewed and interpreted this ECG (s) as follows: Interpretation: Sign this rhythm, ventricular rate of 61, no STEMI. HPI General Mode of arrival: ambulatory . Date/Time Provider Initiated Documentation: 11/04/22 09:25 . Limitations to Documentation: no limitations . Information obtained by: patient . HPI Narrative: This is a 67-year-old gentleman who is a DNR, DNI, past medical history of asthma, obesity, hypertension, prostate cancer, had COVID 2 weeks ago, was fully vaccinated, never a smoker, was not a candidate for Paxlovid, now presenting to the ER for 24-48 hours of chest tightness, shortness of breath, worsening dry cough. He states that overall his COVID was mild, similar to an upper respiratory tract infection. He denies any chest pain, fever, abdominal pain, nausea, vomiting or pain or swelling in his legs. Patient states this feels similar to when he had pneumonia. Patient contacted the office of his PCP today and they recommended coming to the ER for further evaluation. Related Data Home Medications Medication Instructions Recorded Confirmed albuterol sulfate 90 mcg/actuation 2 puff inhalation QID #18 grams 01/17/22 11/04/22 aerosol inhaler (ProAir HFA) budesonide-formoterol HFA 80 2 puff inhalation BID #10.2 grams 01/17/22 11/04/22 mcg-4.5 mcg/actuation aerosol inhaler (Symbicort) calcium carbonate 600 mg-vitamin 2 cap PO DAILY 02/09/22 11/04/22 D3 12.5 mcg (500 unit) capsule (Calcium 600 with Vitamin D3) denosumab 60 mg/mL subcutaneous 60 mg subcut [id number] #1 mL 02/12/22 11/04/22 syringe (Prolia) pravastatin 40 mg tablet 40 mg PO HS #90 tabs 03/29/22 11/04/22 enzalutamide 40 mg capsule 120 mg PO DAILY 10/19/22 11/04/22 benzonatate 100 mg capsule 100 mg PO TID PRN cough #14 caps 10/25/22 11/04/22 lisinopril 10 mg tablet 15 mg PO DAILY #90 tabs 10/25/22 11/04/22 albuterol sulfate 2.5 mg/3 mL 2.5 mg (3 mL) inhalation QID PRN 11/04/22 (0.083 %) solution for nebulization #90 mL Previous Rx's Medication Instructions Recorded albuterol sulfate 90 mcg/actuation 2 puff inhalation QID #18 grams 01/17/22 aerosol inhaler (ProAir HFA) budesonide-formoterol HFA 80 2 puff inhalation BID #10.2 grams 01/17/22 mcg-4.5 mcg/actuation aerosol inhaler (Symbicort) denosumab 60 mg/mL subcutaneous 60 mg subcut [id number] #1 mL 02/12/22 syringe (Prolia) pravastatin 40 mg tablet 40 mg PO HS #90 tabs 03/29/22 benzonatate 100 mg capsule 100 mg PO TID PRN cough #14 caps 10/25/22 lisinopril 10 mg tablet 15 mg PO DAILY #90 tabs 10/25/22 albuterol sulfate 2.5 mg/3 mL 2.5 mg (3 mL) inhalation QID PRN 11/04/22 (0.083 %) solution for nebulization #90 mL Allergies Allergy/AdvReac Type Severity Reaction Status Date / Time Penicillins Allergy Mild Skin Rash Verified 11/04/22 09:25 oxycodone Allergy WHEEZING Verified 11/04/22 09:25 atorvastatin AdvReac Intermediate MYALGIAS Verified 11/04/22 09:25 General Stated Complaint: SOB LUCILA: 3 Review of Systems Constitutional Constitutional: Denies fever(s) and Reports headache(s) ENT Ears, Nose, Mouth, and Throat: Reports headache(s) and Denies sore throat Cardiovascular Cardiovascular: Denies chest pain and Reports dyspnea Respiratory Respiratory: Reports cough and Reports dyspnea Gastrointestinal Gastrointestinal: Denies abdominal pain, Denies nausea and Denies vomiting Musculoskeletal Musculoskeletal: Denies back pain Integumentary/Breasts Skin/Breast: Denies rash Neurologic Neurologic: Reports headache(s) Hematologic/Lymphatic Hematologic/Lymphatic: Denies easy bleeding and Denies easy bruising PFSH All Active Problems (Updated 11/04/22 @ 11:11 by ISRAEL Shukla) COVID (Acute) Dyspnea (Acute) Mildly obese (Acute) Moderate persistent asthma (Acute) 2015 Moderate obstruction on PFT 02/2022-moderate obstruction-significant reversibility on PFT Essential hypertension (Acute 10/20/13) Hyperlipidemia (Acute) Palliative care patient (Acute) DNI (do not intubate) (Acute) DNR (do not resuscitate) (Acute) POLST (Physician Orders for Life-Sustaining Treatment) (Acute) Completed 01/20/2021 with Kaur Hui NP. DNR/DNI. Allergic rhinitis (Acute) BEE (nonalcoholic steatohepatitis) (Acute) Neutropenia, febrile (Acute) a. Probably at the janeth from recent chemotherapy for prostate cancer. b. No real physical symptoms other than a fever which has since abated. c. On IV Levaquin. Prostate cancer (Chronic) a. High grade. b. Negative bone scan 03/25/14. c. Negative CT of the abomen and pelvis 03/25/14. d. On chemotherapy and followed by Dr. Roa. e. recurrence 2017 status post radiation therapy f. 02/2022 relatively recent bony recurrence-metastasis of especially pelvis. Followed by oncology at [facility], on hormonal therapy and doing well Surgical History BACK SURGERY (~03/1994) Family History Mother , 60's Diabetes Essential hypertension Heart disease CHF Stroke Asthma Father , 80's Diabetes Essential hypertension Sister Diabetes Essential hypertension Heart disease Hyperlipidemia Brother Essential hypertension Heart disease Grandfather Neoplasm Grandfather Essential hypertension Heart disease Grandmother Essential hypertension Stroke Asthma Grandmother Essential hypertension Stroke Asthma Brother Essential hypertension Heart disease Social History Smoking/Tobacco Use Status: Never Second Hand Exposure: Yes Smoking risk assessment performed?: Yes Alcohol Intake: current Alcohol Intake frequency: a few times a week Alcohol type: beer Drug use: Never Substance use type: does not use Household members: none Housing: house Communication Needs: None Do you need help understanding health information?: Rarely 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 Pets and animals: Yes Pets and animals: dog(s) and horse(s) Sexually active: No Current gender identity: male What is your relationship status?: never How often do you talk on the phone with friends or family?: three or more times per week How often do you get together with friends or relatives?: decline to answer How often do you attend taoism or confucianism services?: decline to answer Do you belong to any clubs or organized social groups?: no Panel score (0-1 are the most socially isolated patients): 1 What type of physical activity do you participate in: none Seatbelt use: always Drive 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 Do you feel safe at home: Yes Do you feel safe in your relationship?: Yes Exam Const General: cooperative, healthy appearing, comfortable and no acute distress Orientation: alert, awake and oriented x3 HENMT Head: normal to inspection, normocephalic and atraumatic Face and sinus: normal facial exam Mouth: moist mucous membranes Eyes General: appearance normal, both eyes and all related structures Conjunctivae: conjunctivae normal Neck Neck: normal visual inspection, full ROM, no lymphadenopathy, no meningeal signs, trachea midline, supple and nontender Resp Effort & Inspection: normal respiratory effort, able to speak in complete sentences and cough (mild/dry) Auscultation: clear to auscultation bilaterally Cardio Rate: regular rate Rhythm: regular rhythm GI Palpation: soft and nontender Back/Spine/Pelvis Back: No back tenderness Skin General skin exam: no rashes or lesions noted Neuro General: patient alert, patient awake, moves all extremities and no focal motor deficits Cognition: normal cognition Speech: speech normal Gait: normal gait Sensory Exam: no sensory deficits noted Extrem General: normal to inspection, full ROM, capillary refill normal, no pedal edema and no calf tenderness Psych Appearance: grossly normal Mental Status: mental status grossly normal Course Vital Signs Vital signs: Vital Signs Temperature 36.6 C 11/04/22 09:21 Pulse 65 11/04/22 09:21 Respiratory Rate 16 11/04/22 09:21 Blood Pressure 153/70 H 11/04/22 09:21 Pulse Oximetry 99 11/04/22 09:21 Temperature 36.6 C 11/04/22 09:21 Temperature Source Temporal Artery Scan 11/04/22 09:21 Pulse 65 11/04/22 09:21 Respiratory Rate 16 11/04/22 09:21 Blood Pressure 153/70 H 11/04/22 09:21 Blood Pressure Position Sitting 11/04/22 09:21 Pulse Oximetry 99 11/04/22 09:21 Oxygen Delivery Method Room Air 11/04/22 09:21 Oxygen Flow Rate 0 11/04/22 09:21 Pain Level 0 11/04/22 09:21
[2022-11-04 09:26] VITALS: RESP 18
[2022-11-04 10:03] LABS: Abs Immature Grans 0.02 10^3/uL (0.0-0.06); Absolute Basophil Count 0.02 10^3/uL (0.0-0.2); Absolute Eosinophil Count 0.04 10^3/uL (0.0-0.7); Absolute Lymphocyte Count 0.87 10^3/uL (1.2-3.4); Absolute Monocyte Count 0.36 10^3/uL (0.1-0.8); Absolute Neutrophil Count 2.69 10^3/uL (1.2-6.7); Basophils % 0.5; HCT 39.8 % (40.0-50.0); HGB 13.4 g/dL (13.5-17.5); Immature Grans % 0.5; Lymphocytes % 21.8; MCH 33.1 pg (27.0-33.0); MCHC 33.7 % (32.0-36.0); MCV 98 fL (80-95); MPV 8.1 fL (8.0-11.0); Neutrophils % 67.2; Platelet Count 204 10^3/uL (130-400); RBC 4.05 10^6/uL (4.36-5.78); RDW 11.8 % (11.8-14.1); RDW-SD 42.3 fL
--- NOTE | 2022-11-04 10:05 | DI.RAD_ITS ---
Exam(s) XR CHEST 2V PA LATERAL EXAM: XR CHEST 2V PA LATERAL CLINICAL HISTORY: sob TECHNIQUE: 2D digital imaging was performed. COMPARISON: CR XR CHEST 2V PA LATERAL from 02/12/2022 FINDINGS: HEART: Normal size. Aorta: Not dilated. PULMONARY VASCULATURE: Normal. LUNGS: Clear. PLEURAL SPACE: No pleural effusion or pneumothorax. BONE:Unremarkable for age. IMPRESSION: No acute abnormality. DATA REPOSITORY: RADIATION DOSE DELIVERED:
[2022-11-04 10:26] LABS: ALT 32 U/L (16-63); AST 24 U/L (15-37); Albumin 3.8 g/dL (3.4-5.0); Alkaline Phosphatase 67 U/L (46-116); Anion Gap 7.5 mmol/L (3-11); BUN 24 mg/dL (7-18); Bilirubin, Total 0.4 mg/dL (0.2-1.0); CO2 28.5 mmol/L (21.0-32.0); CREATININE 1.1 mg/dL (0.70-1.30); Calcium 9.2 mg/dL (8.5-10.1); Chloride 103 mmol/L (98-107); Estimated GFR 74.04 (mL/min/1.73m2); Glucose 110 mg/dL (74-106); Magnesium 1.9 mg/dL (1.8-2.4); NT-proBNP 67 pg/mL (<300); Potassium 4.5 mmol/L (3.5-5.1); Sodium 139 mmol/L (136-145); Total Protein 7.4 g/dL (6.4-8.2); Troponin I < 50 ng/L (<or=60)
--- NOTE | 2022-11-04 10:27 | DI.VRAD_ITS ---
PROCEDURE INFORMATION: Exam: XR Chest Exam date and time: 11/04/2022 10:08 AM Age: 67 years old Clinical indication: Cough TECHNIQUE: Imaging protocol: Radiologic exam of the chest. Views: 2 views. COMPARISON: CR XR CHEST 2V PA LATERAL 02/12/2022 2:21 PM FINDINGS: Lungs: Unremarkable. No consolidation. Pleural spaces: Unremarkable. No pleural effusion. No pneumothorax. Heart/Mediastinum: Unremarkable. No cardiomegaly. Bones/joints: Unremarkable. IMPRESSION: No acute findings. Dictated and Authenticated by: Joshua Kaiser MD. Ordering:MENA Reynolds MD
[2022-11-04 10:36] LABS: Influenza A PCR Negative (Negative); Influenza B PCR Negative (Negative); RSV PCR Negative (Negative)
[2022-11-04 10:37] LABS: D-Dimer 461 ng/mlFEU (<500)
[2022-11-04 10:40] LABS: COVID-19 PCR Positive (Negative)
== END 2022-11-04 11:18 | disposition home or self-care (01) ==
PROVIDERS: Emergency Provider Physician Assistant; PCP Family Medicine
DX: U07.1 COVID-19 (principal); J45.909 Unspecified asthma, uncomplicated; I10 Essential (primary) hypertension; Z86.16 Personal history of COVID-19; Z85.46 Personal history of malignant neoplasm of prostate; Z79.51 Long term (current) use of inhaled steroids; R06.02 Shortness of breath
CPT/HCPCS: 36415; 80053; 87637; 93005; 99284; 71046; 83735; 83880; 84484; 85025; 85379; 93010

== ENCOUNTER 2022-11-16 03:11 | Outpatient (CLI) | payer MEDICARE, SELFPAY ==
[2022-11-16 11:02] LABS: Abs Immature Grans 0.01 10^3/uL (0.0-0.06); Absolute Basophil Count 0.03 10^3/uL (0.0-0.2); Absolute Eosinophil Count 0.05 10^3/uL (0.0-0.7); Absolute Lymphocyte Count 0.93 10^3/uL (1.2-3.4); Absolute Monocyte Count 0.38 10^3/uL (0.1-0.8); Absolute Neutrophil Count 2.05 10^3/uL (1.2-6.7); Basophils % 0.9; Eosinophils % 1.4; HCT 40.3 % (40.0-50.0); HGB 13.7 g/dL (13.5-17.5); Immature Grans % 0.3; MCH 33.3 pg (27.0-33.0); MCV 98 fL (80-95); MPV 8.1 fL (8.0-11.0); Neutrophils % 59.4; Platelet Count 168 10^3/uL (130-400); RBC 4.12 10^6/uL (4.36-5.78); RDW-SD 43.2 fL; WBC 3.45 10^3/uL (4.4-10.8)
[2022-11-16 11:38] LABS: ALT 35 U/L (16-63); AST 24 U/L (15-37); Albumin 4.1 g/dL (3.4-5.0); Alkaline Phosphatase 73 U/L (46-116); Anion Gap 9.1 mmol/L (3-11); BUN 18 mg/dL (7-18); Bilirubin, Total 0.6 mg/dL (0.2-1.0); CO2 27.9 mmol/L (21.0-32.0); Calcium 9.5 mg/dL (8.5-10.1); Chloride 103 mmol/L (98-107); Estimated GFR 83.01 (mL/min/1.73m2); Glucose 100 mg/dL (74-106); Potassium 4.2 mmol/L (3.5-5.1); Sodium 140 mmol/L (136-145)
[2022-11-20 09:13] LABS: Testosterone, Total 11 ng/dL (240-950)
[2022-11-21 00:03] LABS: PSA, Ultrasensitive <0.01 ng/mL (<= 4.5)
== END 2022-11-16 03:12 | disposition home or self-care (01) ==
LOC: LBO 03:11
PROVIDERS: PCP Family Medicine; Visit Provider Nurse Practitioner Adult Health
DX: C61 Malignant neoplasm of prostate (principal); C79.51 Secondary malignant neoplasm of bone
CPT/HCPCS: 36415; 80053; 84153; 84403; 85025

== ENCOUNTER 2023-02-05 02:59 | Outpatient (CLI) | payer MEDICARE, SELFPAY ==
[2023-02-05 09:49] LABS: Abs Immature Grans 0.01 10^3/uL (0.0-0.06); Absolute Basophil Count 0.02 10^3/uL (0.0-0.2); Absolute Eosinophil Count 0.04 10^3/uL (0.0-0.7); Absolute Lymphocyte Count 0.84 10^3/uL (1.2-3.4); Absolute Monocyte Count 0.35 10^3/uL (0.1-0.8); Absolute Neutrophil Count 1.79 10^3/uL (1.2-6.7); Basophils % 0.7; Eosinophils % 1.3; HCT 39.8 % (40.0-50.0); HGB 13.3 g/dL (13.5-17.5); Immature Grans % 0.3; Lymphocytes % 27.5; MCHC 33.4 % (32.0-36.0); MCV 99 fL (80-95); MPV 8.2 fL (8.0-11.0); Monocytes % 11.5; Neutrophils % 58.7; Platelet Count 155 10^3/uL (130-400); RBC 4.03 10^6/uL (4.36-5.78); RDW 12.1 % (11.8-14.1); RDW-SD 44.4 fL; WBC 3.05 10^3/uL (4.4-10.8)
[2023-02-05 10:33] LABS: ALT 44 U/L (16-63); AST 28 U/L (15-37); Albumin 3.6 g/dL (3.4-5.0); Alkaline Phosphatase 61 U/L (46-116); Anion Gap 5.8 mmol/L (3-11); BUN 17 mg/dL (7-18); Bilirubin, Total 0.4 mg/dL (0.2-1.0); CO2 29.2 mmol/L (21.0-32.0); Calcium 8.5 mg/dL (8.5-10.1); Chloride 107 mmol/L (98-107); Estimated GFR 83.01 (mL/min/1.73m2); Glucose 101 mg/dL (74-106); Potassium 4.6 mmol/L (3.5-5.1); Sodium 142 mmol/L (136-145); Total Protein 7.1 g/dL (6.4-8.2)
[2023-02-07 18:30] LABS: PSA, Ultrasensitive <0.01 ng/mL (<= 4.5)
[2023-02-13 09:15] LABS: Testosterone, Total 8.6 ng/dL (240-950)
== END 2023-02-05 03:00 | disposition home or self-care (01) ==
PROVIDERS: PCP Family Medicine; Visit Provider Nurse Practitioner Adult Health
DX: C61 Malignant neoplasm of prostate (principal); C79.51 Secondary malignant neoplasm of bone
CPT/HCPCS: 36415; 80053; 84153; 84403; 85025

== ENCOUNTER 2023-03-20 10:52 | Outpatient (CLI) | payer MEDICARE, SELFPAY ==
--- NOTE | 2023-03-20 10:45 | RT.EKG_ITS ---
APPROVED REPORT Exam: Resting ECG Reason for Exam: chest discomfort Patient Location: O HR:57 bpm ECG Measurements Heart Rate 57 AXIS PA [id number] P [id number] QRSd 71 QRS 27 QT 411 T 21 QTc 401 Conclusion Atrial fibrillation...V-rate 56- 58, irreg A-activity
== END 2023-03-20 10:53 | disposition home or self-care (01) ==
LOC: DI.CM 10:52
PROVIDERS: PCP Family Medicine; Visit Provider Nurse Practitioner Family
DX: R07.89 Other chest pain (principal)
CPT/HCPCS: 93010

== ENCOUNTER 2023-03-20 11:32 | Emergency (ER) | payer MEDICARE, SELFPAY ==
[2023-03-20] VITALS (12 sets, daily range): BP systolic 145–174; BP diastolic 72–86; PULSE 51–68; RESP 12–18; TEMP 36.6; O2SAT 99–100
--- NOTE | 2023-03-20 11:30 | RT.EKG_ITS ---
APPROVED REPORT Exam: Resting ECG Reason for Exam: afib Patient Location: E HR:58 bpm ECG Measurements Heart Rate 58 AXIS AK 175 P 73 QRSd 57 QRS 46 QT 416 T 45 QTc 407 Conclusion Sinus bradycardia...rate< 60. Sinus. Normal axis. No STEMI. I have reviewed and interpreted ECG and agree with software generated interpretation.
--- NOTE | 2023-03-20 11:44 | ED.GENADUL_ITS ---
Discharge Plan Disposition Patient Disposition: Home Condition: Improving Discharge Details Clinical Impression: Chest tightness, Headache, Shortness of breath Primary Care Provider: Royce Bishop ED Provider: Stacy Lambert Home Meds and New Rx's Prescriptions: Continued calcium carbonate-vitamin D3 [Calcium 600 with Vitamin D3] 600 mg-12.5 mcg (500 unit) capsule 2 cap PO DAILY Prolia 60 mg/mL syringe 60 mg subcut [id number] Qty: 1 0RF enzalutamide 40 mg capsule 120 mg PO DAILY budesonide-formoterol [Symbicort] 80-4.5 mcg/actuation HFA aerosol inhaler 2 puff IH BID Qty: 10.2 11RF lisinopril 10 mg tablet 15 mg PO DAILY Qty: 90 3RF Rx Instructions: dose increase September 25, 2022 pravastatin 40 mg tablet 40 mg PO HS Qty: 90 3RF albuterol sulfate [Proventil HFA] 90 mcg/actuation HFA aerosol inhaler 2 puff inhalation Q6H PRN (Reason: shortness of breath or wheezing) Qty: 8.5 8RF cilostazol 100 mg tablet 50 mg PO BID Qty: 60 2RF albuterol sulfate 2.5 mg /3 mL (0.083 %) solution for nebulization 2.5 mg inhalation QID PRNQty: 90 0RF Lupron Depot (3 month) 11.25 mg Syringe Kit 11.25 mg IM QMONTH Discharge Instructions Instructions: Chest Pain (ED), Dyspnea (ED), General Headache (ED) Additional Instructions: Your blood tests, EKGs and imaging today are reassuring and show no evidence of acute concerning or significant findings. Your symptoms may be due to a mild asthma exacerbation, a viral illness, dehydration, etc. Drink plenty of fluids and get plenty of rest. Continue your regular medications as directed and use your albuterol inhaler as needed and directed for chest tightness or shortness of breath. Follow-up with your primary care doctor in 1 week. Return to the emergency department with any worsening or new concerning sympt oms. Discharge Data Discharge Physician: Stacy Lambert Medical Decision Making 1140 -- 68-year-old male with a history of prostate cancer in remission with history of pelvic metastasis on denosumab, enzalutamide and lupron presents for headache overnight with chest tightness and shortness of breath that started after working outside today. EKG notes a rate of 58, sinus, normal axis with no acute ischemic findings. Blood pressure moderately hypertensive, remainder of vitals within normal limits. Patient appears comfortable and nontoxic. He is speaking in full sentences and demonstrates no signs of respiratory distress. He has clear breath sounds throughout without wheezing, rhonchi, crackles or rales. He has no lower extremity edema. His abdomen is soft and nontender. He has no tearing or ripping sensation to suggest dissection. He has no fever or cough to suggest pneumonia. Considering his age and history, consider ACS, PE, dehydration, electrolyte abnormality. Will obtain screening labs, D-dimer, chest x-ray and give IV Tylenol and fluid bolus and reassess. 1345 --Labs and imaging reviewed. White blood cell count 3.35 which appears at his baseline. Normal electrolytes. Troponin, D-dimer and lipase within normal limits. Patient reassessed and he states he is now having some right-sided chest pain. This area is tender to palpation in addition to right upper quadrant tenderness. He was not aware of abdominal pain. Will refer for CT chest abdomen and pe lvis. He does endorse that his chest feels tight so we will give a DuoNeb. His oxygen saturation is 100% on room air and he appears to be breathing comfortably. 1545 --repeat troponin negative. Repeat EKG unchanged. CT reviewed and negative for acute findings. Patient reassessed after neb treatment and reports his chest tightness is resolved and he feels better and feels comfortable going home. Oxygen saturation 99% on room air. No wheezing or rhonchi noted on lung exam. Patient advised to increase fluids and rest. He states he has plenty of his inhaler at home. Discussed that his presentation may be more consistent with a mild asthma exacerbation, viral illness, dehydration. As he has no fever, productive cough, wheezing or hypoxia do not see indication for antibiotics or steroids at this time. Advised to follow-up with his primary care doctor for reevaluation and for referral for outpatient stress test if his symptoms do not improve or worsen. Medical Records Medical records reviewed: Yes I reviewed the patient's medical records. Imaging Data Radiologic Study: Radiologist's impression: XR CHEST 2V PA ? LATERAL CLINICAL HISTORY:? chest pain, sob, r/o acute disease TECHNIQUE:? 2D digital imaging was performed of the chest.? Two images were obtained.? PA and lateral views were obtained. COMPARISON:? CR,XR XR CHEST 2V PA ? LATERAL from 11/04/2022 FINDINGS: MEDIASTINUM: Normal.? HEART: Normal. PULMONARY VASCULATURE: Normal. LUNGS: Clear. ? PLEURAL SPACE: No pleural effusion or pneumothorax. BONE:Within normal limits for the patient's age.? OTHER FINDINGS:Normal.? IMPRESSION: No acute pulmonary findings. CT CHEST PE ABD ? PELVIS W CLINICAL HISTORY: ? R sided chest/RUQ abd pain. TECHNIQUE:? Imaging Protocol:? Axial CT angiography was performed with multi- slice acquisition and multi-planar and/or 3D reconstructions. CONTRAST MATERIAL:? Intravenous:? Omnipaque 350contrast volume:100 mL COMPARISON:? CT CT CHEST/ABD/PEL W from 04/19/2021 FINDINGS: CHEST: Tracheobronchial tree: Patent where visualized. Pulmonary parenchyma: No consolidation or dominant measurable mass. There is again seen linear scarring in the lung bases.? Pulmonary Arteries: No evidence of filling defect to suggest pulmonary emboli. Mediastinum and Zoë: No dominant adenopathy or fluid collection. The esophagus is unremarkable. Visualized thyroid gland: Unremarkable.? Pleura: No effusion or pneumothorax. Heart: The heart is not dilated. Mild coronary artery calcification.? No pericardial effusion. Aorta: Thoracic aorta non-dilated. No evidence of dissection.? Atherosclerosis is present. Bones: Within normal limits for the patient's age. Soft tissues: Unremarkable.? ABDOMEN: Liver: There is decreased attenuation of the liver suggesting fatty infiltration.? The liver measures 17 cm long.? No measurable mass. Portal, Superior Mesenteric, and Splenic Veins: Unremarkable.? Gallbladder and Biliary Tract: No radiodense calculus or dilation. Pancreas: Normal density, no abnormal calcifications or inflammatory process. Spleen: Normal. Adrenals: No masses seen. Kidneys: Normal size, contour and axis. No radiodense stones or obstructive uropathy. No masses seen. Abdominal Aorta: Abdominal portion non-dilated. Atherosclerosis. Bowel: No obstruction or bowel wall thickening. Appendix is unremarkable. Peritoneal Cavity: No ascites, collection or mesenteric inflammatory response. No free air. Lymph Nodes: Within normal limits. Bones: Within normal limits for the patient's age.? Soft Tissues: Unremarkable. PELVIS: Bladder: Symmetric distention, no gross wall thickening. Reproductive Organs: No significant prostatic tissue is identified.? Lymph Nodes: Within normal limits. Bones: Within normal limits. IMPRESSION: 1. No evidence pulmonary embolism, thoracic aortic dissection or aneurysm. 2. No acute pulmonary process. 3. No acute abdominal or pelvic process. 4. Findings were discussed with Dr. Lambert at 2:30 p.m. on 03/20/2023. Lab Data Lab results reviewed: Yes I reviewed the patient's lab results. Labs: Laboratory Tests Range/Units 03/20/23 03/20/23 03/20/23 11:40 11:40 11:40 WBC (4.4-10.8) 10^3/uL 3.35 L RBC (4.36-5.78) 10^6/uL 4.26 L Hgb (13.5-17.5) g/dL 14.0 Hct (40.0-50.0) % 41.1 MCV (80-95) fL 97 H MCH (27.0-33.0) pg 32.9 MCHC (32.0-36.0) % 34.1 RDW (11.8-14.1) % 11.9 Plt Count (130-400) 10^3/uL 183 MPV (8.0-11.0) fL 8.1 Immature Gran % 0.3 Neutrophils % 62.1 Lymphocytes % 25.4 Monocytes % 10.1 Eosinophils % 0.9 Basophils % 1.2 Nucleated RBC % (0.0-0.3) % 0.0 Absolute Neutrophils (1.2-6.7) 10^3/uL 2.08 Absolute Lymphocytes (1.2-3.4) 10^3/uL 0.85 L Absolute Monocytes (0.1-0.8) 10^3/uL 0.34 Absolute Eosinophils (0.0-0.7) 10^3/uL 0.03 Absolute Basophils (0.0-0.2) 10^3/uL 0.04 D-Dimer (<500) ng/mlFEU 480 Sodium (136-145) mmol/L 142 Potassium (3.5-5.1) mmol/L 4.6 Chloride (98-107) mmol/L 107 Carbon Dioxide (21.0-32.0) mmol/L 27.5 Anion Gap (3-11) mmol/L 7.5 BUN (7-18) mg/dL 15 Creatinine (0.70-1.30) mg/dL 1.0 Est GFR (CKD-EPI 2020) (mL/min/1.73m2) 82.49 Glucose (74-106) mg/dL 96 Calcium (8.5-10.1) mg/dL 9.3 Magnesium (1.8-2.4) mg/dL 2.0 Total Bilirubin (0.2-1.0) mg/dL 0.4 AST (15-37) U/L 26 ALT (16-63) U/L 36 Alkaline Phosphatase (46-116) U/L 66 Troponin I (<or=60) ng/L < 50 Total Protein (6.4-8.2) g/dL 7.6 Albumin (3.4-5.0) g/dL 3.8 Lipase (16-77) U/L Range/Units 03/20/23 03/20/23 11:40 14:20 WBC (4.4-10.8) 10^3/uL RBC (4.36-5.78) 10^6/uL Hgb (13.5-17.5) g/dL Hct (40.0-50.0) % MCV (80-95) fL MCH (27.0-33.0) pg MCHC (32.0-36.0) % RDW (11.8-14.1) % Plt Count (130-400) 10^3/uL MPV (8.0-11.0) fL Immature Gran % Neutrophils % Lymphocytes % Monocytes % Eosinophils % Basophils % Nucleated RBC % (0.0-0.3) % Absolute Neutrophils (1.2-6.7) 10^3/uL Absolute Lymphocytes (1.2-3.4) 10^3/uL Absolute Monocytes (0.1-0.8) 10^3/uL Absolute Eosinophils (0.0-0.7) 10^3/uL Absolute Basophils (0.0-0.2) 10^3/uL D-Dimer (<500) ng/mlFEU Sodium (136-145) mmol/L Potassium (3.5-5.1) mmol/L Chloride (98-107) mmol/L Carbon Dioxide (21.0-32.0) mmol/L Anion Gap (3-11) mmol/L BUN (7-18) mg/dL Creatinine (0.70-1.30) mg/dL Est GFR (CKD-EPI 2020) (mL/min/1.73m2) Glucose (74-106) mg/dL Calcium (8.5-10.1) mg/dL Magnesium (1.8-2.4) mg/dL Total Bilirubin (0.2-1.0) mg/dL AST (15-37) U/L ALT (16-63) U/L Alkaline Phosphatase (46-116) U/L Troponin I (<or=60) ng/L < 50 Total Protein (6.4-8.2) g/dL Albumin (3.4-5.0) g/dL Lipase (16-77) U/L 30 ECG Data Attestation: I personally reviewed and interpreted this ECG (s) as follows: Interpretation: #1 --Rate of 58, sinus, normal axis, no STEMI. #2 --Rate of 57, sinus, normal axis, no STEMI. HPI General Mode of arrival: ambulatory . Date/Time Provider Initiated Documentation: 03/20/23 11:33 . Limitations to Documentation: no limitations . Information obtained by: patient . HPI Narrative: Patient is a 68-year-old male with a history of prostate cancer with bony metastasis in remission but currently on enzalutamide, denosumab and Lupron, asthma, hypertension, hyperlipidemia who is DNR/DNI presents for headache since last night and chest pain or shortness of breath today after working outside. Patient states he first had a headache that wrapped around my head and felt like pressure at 6 PM last night for which she took 3 tabs of Tylenol. Patient states his headache improved and then he went to bed. He states the headache awoke him from sleep at 1 AM for which he took another 3 tabs of Tylenol. Patient states he awoke this morning and did not have a headache at that time. He states he occasionally gets headaches since started on chemo a few years ago for his prostate cancer. He states he was out walking and then lifting barrels of hay. He states when he went back inside and sat down he felt that his chest was tight with shortness of breath. He states he took 2 puffs of his inhaler with some improvement. He states around that time he noted some lightheadedness but denies any spinning sensation. He states his symptoms are mostly resolved at this time and still has mild headache and lightheadedness. Patient states he usually drinks alcohol a few times a week but states he had 4 beers few days ago and 1 beer last night. He denies any known fever, blurry vision, sore throat, coughing, nausea, vomiting, diarrhea, leg pain or swelling, recent travel, recent antibiotics, or recent surgery. He states he rarely has asthma attacks but can sometimes occur with weather change. Related Data Home Medications Medication Instructions Recorded Confirmed calcium carbonate 600 mg-vitamin 2 cap PO DAILY 02/09/22 03/20/23 D3 12.5 mcg (500 unit) capsule (Calcium 600 with Vitamin D3) denosumab 60 mg/mL subcutaneous 60 mg subcut [id number] #1 mL 02/12/22 03/20/23 syringe (Prolia) enzalutamide 40 mg capsule 120 mg PO DAILY 10/19/22 03/20/23 albuterol sulfate 2.5 mg/3 mL 2.5 mg (3 mL) inhalation QID PRN 11/04/22 03/20/23 (0.083 %) solution for nebulization #90 mL albuterol sulfate 90 mcg/actuation 2 puff inhalation Q6H PRN 01/31/23 03/20/23 aerosol inhaler (Proventil HFA) shortness of breath or wheezing #8.5 grams budesonide-formoterol HFA 80 2 puff inhalation BID #10.2 grams 01/31/23 03/20/23 mcg-4.5 mcg/actuation aerosol inhaler (Symbicort) lisinopril 10 mg tablet 15 mg PO DAILY #90 tabs 01/31/23 03/20/23 pravastatin 40 mg tablet 40 mg PO HS #90 tabs 01/31/23 03/20/23 cilostazol 100 mg tablet 50 mg PO BID claudication #60 tabs 03/12/23 03/20/23 leuprolide (3 month) 11.25 mg (3 11.25 mg IM QMONTH 03/20/23 03/20/23 month) intramuscular syringe kit (Lupron Depot) Previous Rx's Medication Instructions Recorded denosumab 60 mg/mL subcutaneous 60 mg subcut [id number] #1 mL 02/12/22 syringe (Prolia) albuterol sulfate 2.5 mg/3 mL 2.5 mg (3 mL) inhalation QID PRN 11/04/22 (0.083 %) solution for nebulization #90 mL albuterol sulfate 90 mcg/actuation 2 puff inhalation Q6H PRN 01/31/23 aerosol inhaler (Proventil HFA) shortness of breath or wheezing #8.5 grams budesonide-formoterol HFA 80 2 puff inhalation BID #10.2 grams 01/31/23 mcg-4.5 mcg/actuation aerosol inhaler (Symbicort) lisinopril 10 mg tablet 15 mg PO DAILY #90 tabs 01/31/23 pravastatin 40 mg tablet 40 mg PO HS #90 tabs 01/31/23 cilostazol 100 mg tablet 50 mg PO BID claudication #60 tabs 03/12/23 Allergies Allergy/AdvReac Type Severity Reaction Status Date / Time Penicillins Allergy Mild Skin Rash Verified 03/20/23 11:36 oxycodone Allergy WHEEZING Verified 03/20/23 11:36 atorvastatin AdvReac Intermediate MYALGIAS Verified 03/20/23 11:36 General Stated Complaint: Chest Pain LUCILA: 3 Review of Systems All systems reviewed & are unremarkable except as noted in HPI and below Constitutional Constitutional: Reports as per HPI, Denies chills and Denies fever(s) Eyes Eyes: Denies blurry vision ENT Ears, Nose, Mouth, and Throat: Denies dizziness, Denies sore throat and Denies throat swelling Cardiovascular Cardiovascular: Reports chest pain (chest tightness) and Reports dyspnea Respiratory Respiratory: Denies cough and Reports dyspnea Gastrointestinal Gastrointestinal: Denies abdominal pain, Denies diarrhea and Denies vomiting Genitourinary Genitourinary: Denies hematuria and Denies dysuria Musculoskeletal Musculoskeletal: Denies back pain and Denies numbness Integumentary/Breasts Skin/Breast: Denies lesions and Denies rash Neurologic Neurologic: Denies dizziness, Denies localized weakness and Denies numbness Allergic/Immunologic Allergic/Immunologic: Denies throat swelling PFSH All Active Problems (Updated 03/20/23 @ 15:55 by Stacy Lambert DO) Chest tightness (Acute) Headache (Acute) Shortness of breath (Acute) COVID (Acute) Mildly obese (Acute) Palliative care patient (Acute) POLST (Physician Orders for Life-Sustaining Treatment) (Acute) Completed 01/20/2021 with Kaur Hui NP. DNR/DNI. Allergic rhinitis (Acute) BEE (nonalcoholic steatohepatitis) (Acute) Neutropenia, febrile (Acute) a. Probably at the janeth from recent chemotherapy for prostate cancer. b. No real physical symptoms other than a fever which has since abated. c. On IV Levaquin. Medical History (Updated 03/20/23 @ 15:55 by Stacy Lambert DO) DNI (do not intubate) DNR (do not resuscitate) Essential hypertension (10/20/13) Hyperlipidemia Moderate persistent asthma 2015 Moderate obstruction on PFT 02/2022-moderate obstruction-significant reversibility on PFT PAD (peripheral artery disease) Prostate cancer a. High grade. b. Negative bone scan 03/25/14. c. Negative CT of the abomen and pelvis 03/25/14. d. On chemotherapy and followed by Dr. Roa. e. recurrence 2017 status post radiation therapy f. 02/2022 relatively recent bony recurrence-metastasis of especially pelvis. Followed by oncology at [facility], on hormonal therapy and doing well Surgical History BACK SURGERY (~03/1994) Family History Mother , 60's Diabetes Essential hypertension Heart disease CHF Stroke Asthma Father , 80's Diabetes Essential hypertension Sister Diabetes Essential hypertension Heart disease Hyperlipidemia Brother Essential hypertension Heart disease Grandfather Neoplasm Grandfather Essential hypertension Heart disease Grandmother Essential hypertension Stroke Asthma Grandmother Essential hypertension Stroke Asthma Brother Essential hypertension Heart disease Social History (Updated 03/05/23 @ 15:13 by Gabriella Saez) Smoking/Tobacco Use Status: Never Second Hand Exposure: Yes Smoking risk assessment performed?: Yes Alcohol Intake: current Alcohol type: beer and hard liquor Drug use: Never Substance use type: does not use Household members: none Housing: house Communication Needs: None Do you need help understanding health information?: Rarely 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 Pets and animals: Yes Pets and animals: dog(s) and horse(s) Sexually active: No Current gender identity: male What is your relationship status?: never How often do you talk on the phone with friends or family?: three or more times per week How often do you get together with friends or relatives?: decline to answer How often do you attend spiritism or mosque services?: decline to answer Do you belong to any clubs or organized social groups?: no Panel score (0-1 are the most socially isolated patients): 1 What type of physical activity do you participate in: walking Duration: 15-30 minutes/day Frequency: 5-6 times per week Nelly/Church: No preference Special nelly needs: No Seatbelt use: always Drive intox or ride w/intox tractor driver: No Do you feel safe at home: Yes Do you feel safe in your relationship?: Yes Exam Const General: cooperative, healthy appearing and no acute distress Orientation: alert, awake and oriented x3 HENMT Head: normal to inspection Face and sinus: normal facial exam Eyes General: appearance normal, both eyes and all related structures Pupils: PERRL EOM: EOM intact bilaterally Neck Neck: normal visual inspection and No submandibular swelling Lymphatic: no lymphadenopathy noted Chest Chest: normal inspection of the chest, normal palpation of entire chest wall and no tenderness Resp Effort & Inspection: normal respiratory effort and able to speak in complete sentences Auscultation: clear to auscultation bilaterally Cardio Rate: regular rate Rhythm: regular rhythm GI Inspection: normal to inspection Palpation: soft, not firm, not rigid and nontender Auscultation: normal bowel sounds Skin General skin exam: no rashes or lesions noted Neuro General: patient alert, patient awake, patient oriented x3 and no meningeal signs Cognition: normal cognition Speech: speech normal Motor: muscle tone normal throughout Sensory Exam: no sensory deficits noted Extrem General: normal to inspection, full ROM and no edema Psych Appearance: grossly normal Mental Status: mental status grossly normal Speech and Movement: speech and movement normal Affect: normal affect Course Vital Signs Vital signs: Vital Signs Temperature 97.8 F 03/20/23 11:38 Pulse 58 L 03/20/23 11:38 Respiratory Rate 18 03/20/23 11:38 Blood Pressure 174/81 H 03/20/23 11:38 Pulse Oximetry 100 03/20/23 11:38 Temperature 97.8 F 03/20/23 11:38 Temperature Source Oral 03/20/23 11:38 Pulse 58 L 03/20/23 11:38 Respiratory Rate 18 03/20/23 11:38 Respiratory Effort Normal, Non-Labored 03/20/23 11:36 Blood Pressure 174/81 H 03/20/23 11:38 Pulse Oximetry 100 03/20/23 11:38 Oxygen Delivery Method Room Air 03/20/23 11:38 Oxygen Flow Rate 0 03/20/23 11:38 PAWSS Have you Been Recently Intoxicated or Drunk Within the Last 30 days?: No Have you Ever Experienced Previous Episodes of Alcohol Withdrawal?: No Have you ever Experienced Withdrawal Seizures?: No Have you ever Experienced Delirium Tremens(DT)s?: No Have you ever undergone Alcohol Rehabilitation Treatment (i.e, inpt ot outpatient treatment programs)?: No Have you ever Experienced Blackouts?: No Have you ever Combined Alcohol with other Downers within the last 90 days?: No Have you ever Combined Alcohol with any other Substance of Abuse during the last 90 days?: No Positive Blood Alcohol level on Presentation? [PCS.BAL]: No Evidence of Increased Autonomic Activity (i.e. HR>120, tremor, sweating, agitation, nausea)?: No Result: 0
[2023-03-20 11:49] LABS: Abs Immature Grans 0.01 10^3/uL (0.0-0.06); Absolute Basophil Count 0.04 10^3/uL (0.0-0.2); Absolute Eosinophil Count 0.03 10^3/uL (0.0-0.7); Absolute Lymphocyte Count 0.85 10^3/uL (1.2-3.4); Absolute Monocyte Count 0.34 10^3/uL (0.1-0.8); Absolute Neutrophil Count 2.08 10^3/uL (1.2-6.7); Basophils % 1.2; Eosinophils % 0.9; HCT 41.1 % (40.0-50.0); Immature Grans % 0.3; Lymphocytes % 25.4; MCH 32.9 pg (27.0-33.0); MCHC 34.1 % (32.0-36.0); MCV 97 fL (80-95); MPV 8.1 fL (8.0-11.0); Monocytes % 10.1; Neutrophils % 62.1; Platelet Count 183 10^3/uL (130-400); RBC 4.26 10^6/uL (4.36-5.78); RDW 11.9 % (11.8-14.1); RDW-SD 42.7 fL; WBC 3.35 10^3/uL (4.4-10.8)
--- NOTE | 2023-03-20 12:15 | DI.RAD_ITS ---
Exam(s) XR CHEST 2V PA LATERAL EXAM: XR CHEST 2V PA LATERAL CLINICAL HISTORY: chest pain, sob, r/o acute disease TECHNIQUE: 2D digital imaging was performed of the chest. Two images were obtained. PA and lateral views were obtained. COMPARISON: CR,XR XR CHEST 2V PA LATERAL from 11/04/2022 FINDINGS: MEDIASTINUM: Normal. HEART: Normal. PULMONARY VASCULATURE: Normal. LUNGS: Clear. PLEURAL SPACE: No pleural effusion or pneumothorax. BONE:Within normal limits for the patient's age. OTHER FINDINGS:Normal. IMPRESSION: No acute pulmonary findings. DATA REPOSITORY: RADIATION DOSE DELIVERED:
[2023-03-20 12:19] LABS: ALT 36 U/L (16-63); AST 26 U/L (15-37); Albumin 3.8 g/dL (3.4-5.0); Alkaline Phosphatase 66 U/L (46-116); Anion Gap 7.5 mmol/L (3-11); BUN 15 mg/dL (7-18); Bilirubin, Total 0.4 mg/dL (0.2-1.0); CO2 27.5 mmol/L (21.0-32.0); Calcium 9.3 mg/dL (8.5-10.1); Chloride 107 mmol/L (98-107); Estimated GFR 82.49 (mL/min/1.73m2); Glucose 96 mg/dL (74-106); Potassium 4.6 mmol/L (3.5-5.1); Sodium 142 mmol/L (136-145); Total Protein 7.6 g/dL (6.4-8.2); Troponin I < 50 ng/L (<or=60)
[2023-03-20] MEDS: ACETAMINOPHEN 1,000 MG/100 ML BTL 400 MG IVPB (12:31)
[2023-03-20] MEDS: Normal Saline 1,000 ML 1000 ML IV (12:31)
[2023-03-20 13:08] LABS: D-Dimer 480 ng/mlFEU (<500)
[2023-03-20 13:18] LABS: Lipase 30 U/L (16-77)
--- NOTE | 2023-03-20 13:45 | DI.CT_ITS ---
Exam(s) CT CHEST PE ABD PELVIS W EXAM: CT CHEST PE ABD PELVIS W CLINICAL HISTORY: R sided chest/RUQ abd pain. TECHNIQUE: Imaging Protocol: Axial CT angiography was performed with multi-slice acquisition and mu lti-planar and/or 3D reconstructions. CONTRAST MATERIAL: Intravenous: Omnipaque 350contrast volume:100 mL COMPARISON: CT CT CHEST/ABD/PEL W from 04/19/2021 FINDINGS: CHEST: Tracheobronchial tree: Patent where visualized. Pulmonary parenchyma: No consolidation or dominant measurable mass. There is again seen linear scarri ng in the lung bases. Pulmonary Arteries: No evidence of filling defect to suggest pulmonary emboli. Mediastinum and Zoë: No dominant adenopathy or fluid collection. The esophagus is unremarkable. Visualized thyroid gland: Unremarkable. Pleura: No effusion or pneumothorax. Heart: The heart is not dilated. Mild coronary artery calcification. No pericardial effusion. Aorta: Thoracic aorta non-dilated. No evidence of dissection. Atherosclerosis is present. Bones: Within normal limits for the patient's age. Soft tissues: Unremarkable. ABDOMEN: Liver: There is decreased attenuation of the liver suggesting fatty infiltration. The liver measures 17 cm long. No measurable mass. Portal, Superior Mesenteric, and Splenic Veins: Unremarkable. Gallbladder and Biliary Tract: No radiodense calculus or dilation. Pancreas: Normal density, no abnormal calcifications or inflammatory process. Spleen: Normal. Adrenals: No masses seen. Kidneys: Normal size, contour and axis. No radiodense stones or obstructive uropathy. No masses seen. Abdominal Aorta: Abdominal portion non-dilated. Atherosclerosis. Bowel: No obstruction or bowel wall thickening. Appendix is unremarkable. Peritoneal Cavity: No ascites, collection or mesenteric inflammatory response. No free air. Lymph Nodes: Within normal limits. Bones: Within normal limits for the patient's age. Soft Tissues: Unremarkable. PELVIS: Bladder: Symmetric distention, no gross wall thickening. Reproductive Organs: No significant prostatic tissue is identified. Lymph Nodes: Within normal limits. Bones: Within normal limits. IMPRESSION: 1. No evidence pulmonary embolism, thoracic aortic dissection or aneurysm. 2. No acute pulmonary process. 3. No acute abdominal or pelvic process. 4. Findings were discussed with Dr. Lambert at 2:30 p.m. on 03/20/2023. RADIATION DOSE DELIVERED: 1,754.59mGy.cm Total DLP DATA REPOSITORY: All CT scans at this facility are submitted to the National Radiology Data Registry (NRDR) Dose Index Registry (DIR) with the [employer] ([employer]). RADIATION OPTIMIZATION: All CT scans at this facility use at least one of these dose optimization te chniques: automated exposure control; mA and/or kV adjustment per patient size (includes targeted exa ms where dose is matched to clinical indication); or iterative reconstruction.
[2023-03-20] MEDS: Normal Saline - Diluent 50 ML VIAL IJ (14:10)
[2023-03-20] MEDS: Normal Saline Flush 10 ML SYR IVP (14:10)
[2023-03-20] MEDS: Omnipaque 350 MG/ML 100 ML BTL IJ (14:11)
[2023-03-20] MEDS: Albuterol/Ipratropium 3 ML UPD VIAL UPD (14:15)
--- NOTE | 2023-03-20 14:30 | RT.EKG_ITS ---
APPROVED REPORT Exam: Resting ECG Reason for Exam: chest tightness Patient Location: E HR:57 bpm ECG Measurements Heart Rate 57 AXIS VA 167 P 54 QRSd 62 QRS 40 QT 434 T 24 QTc 424 Conclusion Sinus bradycardia...rate< 60. Sinus. Normal axis. No STEMI. I have reviewed and interpreted ECG and agree with software generated interpretation.
[2023-03-20 14:43] LABS: Troponin I < 50 ng/L (<or=60)
[2023-03-20 18:08] LABS: COVID-19 PCR Negative (Negative); Influenza A PCR Negative (Negative); Influenza B PCR Negative (Negative); RSV PCR Negative (Negative)
[2023-03-20 18:11] LABS: Source Nasopharynx
== END 2023-03-20 16:44 | disposition home or self-care (01) ==
PROVIDERS: Emergency Provider Physician Assistant; PCP Family Medicine
DX: I48.91 Unspecified atrial fibrillation (principal); R06.02 Shortness of breath; R07.89 Other chest pain; R51.9 Headache, unspecified; Z85.46 Personal history of malignant neoplasm of prostate; R10.11 Right upper quadrant pain; J45.40 Moderate persistent asthma, uncomplicated
CPT/HCPCS: 36415; 71275; 74177; 80053; 83690; 87637; 93005; 96361; 96365; 99285; 71046; 83735; 84484; 85025; 85379; 93010; 99284; J0131; J3490; J7620

== ENCOUNTER 2023-04-18 17:21 | Emergency (ER) | payer MEDICARE, MEDICAID, SELFPAY ==
--- NOTE | 2023-04-18 17:15 | RT.EKG_ITS ---
APPROVED REPORT Exam: Resting ECG Reason for Exam: sob Patient Location: E HR:75 bpm ECG Measurements Heart Rate 75 AXIS HI 171 P 67 QRSd 65 QRS 33 QT 375 T 47 QTc 418 Conclusion Sinus rhythm...normal P axis, V-rate 60- 99 nsr
[2023-04-18 17:29] VITALS: BP 139/60; PULSE 73; RESP 18; TEMP 37; O2SAT 99
--- NOTE | 2023-04-18 17:30 | DI.RAD_ITS ---
Exam(s) XR PORTABLE CHEST AP EXAM: XR PORTABLE CHEST AP CLINICAL HISTORY: sob. TECHNIQUE: 2D digital imaging was performed. COMPARISON: No exams were available for comparison FINDINGS: Single AP portable view. Heart size is upper normal. The mediastinum is not widened. Lungs are clear. No infiltrates nor obvious pleural effusions. IMPRESSION: No acute pulmonary findings on this single AP portable view of the chest. DATA REPOSITORY: RADIATION DOSE DELIVERED:
[2023-04-18 17:34] VITALS: RESP 16
--- NOTE | 2023-04-18 17:39 | ED.GENADUL_ITS ---
Discharge Plan Discharge Details Chief Complaint: SOB Primary Care Provider: Royce Bishop ED Provider: Victor Manuel Mohan Home Meds and New Rx's Prescriptions: No Action calcium carbonate-vitamin D3 [Calcium 600 with Vitamin D3] 600 mg-12.5 mcg (500 unit) capsule 2 cap PO DAILY Prolia 60 mg/mL syringe 60 mg subcut [id number] Qty: 1 0RF enzalutamide 40 mg capsule 120 mg PO DAILY budesonide-formoterol [Symbicort] 80-4.5 mcg/actuation HFA aerosol inhaler 2 puff IH BID Qty: 10.2 11RF lisinopril 10 mg tablet 15 mg PO DAILY Qty: 90 3RF Rx Instructions: dose increase September 25, 2022 pravastatin 40 mg tablet 40 mg PO HS Qty: 90 3RF albuterol sulfate [Proventil HFA] 90 mcg/actuation HFA aerosol inhaler 2 puff inhalation Q6H PRN (Reason: shortness of breath or wheezing) Qty: 8.5 8RF albuterol sulfate 2.5 mg /3 mL (0.083 %) solution for nebulization 2.5 mg inhalation QID PRNQty: 90 0RF Lupron Depot (3 month) 11.25 mg Syringe Kit 11.25 mg IM QMONTH HPI General Date/Time Provider Initiated Documentation: 04/18/23 17:24 . HPI Narrative: 68 year old male with hx of HTN, HLD, asthma, recent dx pAF, presents to the ED with c/o feeling sob since this am, with some associated chest pressure, sx's he says are the same as when he was seen about a month ago and found to be in AF. He denies any dizzy/lightheadedness, no LE swelling, no abd pain, no n/v/d. He had similar episode a few days ago, tried his rescue inhaler without any improvement. No fever/chills. NO cough. He feels more comfortable reclining. Related Data Home Medications Medication Instructions Recorded Confirmed calcium carbonate 600 mg-vitamin 2 cap PO DAILY 02/09/22 04/03/23 D3 12.5 mcg (500 unit) capsule (Calcium 600 with Vitamin D3) denosumab 60 mg/mL subcutaneous 60 mg subcut [id number] #1 mL 02/12/22 04/03/23 syringe (Prolia) enzalutamide 40 mg capsule 120 mg PO DAILY 10/19/22 04/03/23 albuterol sulfate 2.5 mg/3 mL 2.5 mg (3 mL) inhalation QID PRN 11/04/22 04/03/23 (0.083 %) solution for nebulization #90 mL albuterol sulfate 90 mcg/actuation 2 puff inhalation Q6H PRN 01/31/23 04/03/23 aerosol inhaler (Proventil HFA) shortness of breath or wheezing #8.5 grams budesonide-formoterol HFA 80 2 puff inhalation BID #10.2 grams 01/31/23 04/03/23 mcg-4.5 mcg/actuation aerosol inhaler (Symbicort) lisinopril 10 mg tablet 15 mg PO DAILY #90 tabs 01/31/23 04/03/23 pravastatin 40 mg tablet 40 mg PO HS #90 tabs 01/31/23 04/03/23 leuprolide (3 month) 11.25 mg (3 11.25 mg IM QMONTH 03/20/23 04/03/23 month) intramuscular syringe kit (Lupron Depot) Previous Rx's Medication Instructions Recorded denosumab 60 mg/mL subcutaneous 60 mg subcut [id number] #1 mL 02/12/22 syringe (Prolia) albuterol sulfate 2.5 mg/3 mL 2.5 mg (3 mL) inhalation QID PRN 11/04/22 (0.083 %) solution for nebulization #90 mL albuterol sulfate 90 mcg/actuation 2 puff inhalation Q6H PRN 01/31/23 aerosol inhaler (Proventil HFA) shortness of breath or wheezing #8.5 grams budesonide-formoterol HFA 80 2 puff inhalation BID #10.2 grams 01/31/23 mcg-4.5 mcg/actuation aerosol inhaler (Symbicort) lisinopril 10 mg tablet 15 mg PO DAILY #90 tabs 01/31/23 pravastatin 40 mg tablet 40 mg PO HS #90 tabs 01/31/23 Allergies Allergy/AdvReac Type Severity Reaction Status Date / Time Penicillins Allergy Mild Skin Rash Verified 03/25/23 13:15 oxycodone Allergy WHEEZING Verified 03/25/23 13:15 atorvastatin AdvReac Intermediate MYALGIAS Verified 03/25/23 13:15 General Stated Complaint: SOB LUCILA: 3 Review of Systems Narrative: CONST: no fever or chills HEENT: no sore throat SKIN: no rashes PULM: +sob no cough CARD: +chest pressure, no palpitations ABD: no abd pain EXTR: no swelling NEURO: No focal weakness PFSH All Active Problems (Updated 04/03/23 @ 14:09 by Bre West) Chest tightness (Chronic) Headache (Chronic) Shortness of breath (Chronic) COVID (Chronic) Mildly obese (Acute) Palliative care patient (Acute) POLST (Physician Orders for Life-Sustaining Treatment) (Acute) Completed 01/20/2021 with Kaur Hui NP. DNR/DNI. Allergic rhinitis (Acute) BEE (nonalcoholic steatohepatitis) (Acute) Neutropenia, febrile (Acute) a. Probably at the janeth from recent chemotherapy for prostate cancer. b. No real physical symptoms other than a fever which has since abated. c. On IV Levaquin. Medical History (Updated 04/03/23 @ 14:09 by Bre West) DNI (do not intubate) DNR (do not resuscitate) Essential hypertension (10/20/13) Hyperlipidemia Moderate persistent asthma 2016 Moderate obstruction on PFT 02/2022-moderate obstruction-significant reversibility on PFT PAD (peripheral artery disease) Prostate cancer a. High grade. b. Negative bone scan 03/25/14. c. Negative CT of the abomen and pelvis 03/25/14. d. On chemotherapy and followed by Dr. Roa. e. recurrence 2017 status post radiation therapy f. 02/2022 relatively recent bony recurrence-metastasis of especially pelvis. Followed by oncology at [facility], on hormonal therapy and doing well Surgical History BACK SURGERY (~03/1994) Family History Mother , 60's Diabetes Essential hypertension Heart disease CHF Stroke Asthma Father , 80's Diabetes Essential hypertension Sister Diabetes Essential hypertension Heart disease Hyperlipidemia Brother Essential hypertension Heart disease Grandfather Neoplasm Grandfather Essential hypertension Heart disease Grandmother Essential hypertension Stroke Asthma Grandmother Essential hypertension Stroke Asthma Brother Essential hypertension Heart disease Social History (Updated 03/05/23 @ 15:13 by Gabriella Saez) Smoking/Tobacco Use Status: Never Second Hand Exposure: Yes Smoking risk assessment performed?: Yes Alcohol Intake: current Alcohol type: beer and hard liquor Drug use: Never Substance use type: does not use Household members: none Housing: house Communication Needs: None Do you need help understanding health information?: Rarely current occupation: [employer] Pets and animals: Yes Pets and animals: dog(s) and horse(s) Sexually active: No Current gender identity: male What is your relationship status?: never How often do you talk on the phone with friends or family?: three or more times per week How often do you get together with friends or relatives?: decline to answer How often do you attend samaritan or temple services?: decline to answer Do you belong to any clubs or organized social groups?: no Panel score (0-1 are the most socially isolated patients): 1 What type of physical activity do you participate in: walking Duration: 15-30 minutes/day Frequency: 5-6 times per week Nelly/Druze: No preference Special nelly needs: No Seatbelt use: always Drive intox or ride w/intox starting gate driver: No Do you feel safe at home: Yes Do you feel safe in your relationship?: Yes Exam Narrative Exam Narrative: Const: well appearing, no acute distress HEENT: normocephalic, atraumatic; MMM Lungs: CTA, no wheezing or rales Heart: RRR Abd: soft, NT/ND Ext: well perfused Neuro: non-focal Skin: no rashes Course 68 yo male with HTN, HLD, PAD, presents to the ED with c/o feeling sob since this am with chest pressure. He had similar sx's when initially dx with AF, although ekg was nsr with rate 70's. Will check labs, cxr, asa. Reevaluation(s) Initial Evaluation: 1848 - Pt resting comfortably, currently denies any c/o. Discussed available test results, nothing acute. Will send repeat trop, and if neg then dc home. He already has appt with cardiology next week to discuss his pAF. Reviewing his prior visits, not clear to me that he was actually in AF at all, which is likely why meds were not started for him. He will need further eval, can discuss out-pt stress, Holter monitoring. Vital Signs Vital signs: Vital Signs Temperature 37.0 C 04/18/23 17:29 Pulse 73 04/18/23 17:29 Respiratory Rate 18 04/18/23 17:29 Blood Pressure 139/60 04/18/23 17:29 Pulse Oximetry 99 04/18/23 17:29 Temperature 37.0 C 04/18/23 17:29 Temperature Source Oral 04/18/23 17:29 Pulse 73 04/18/23 17:29 Respiratory Rate 16 04/18/23 17:34 Respiratory Effort Normal 04/18/23 17:34 Respiratory Depth Normal 04/18/23 17:34 Respiratory Pattern Normal 04/18/23 17:34 Blood Pressure 139/60 04/18/23 17:29 Blood Pressure Position Sitting 04/18/23 17:29 Pulse Oximetry 99 04/18/23 17:29 Oxygen Delivery Method Room Air 04/18/23 17:29 Oxygen Flow Rate 0 04/18/23 17:29 Pain Level 2 04/18/23 17:34
[2023-04-18] MEDS: Aspirin 325 MG TAB PO (17:50)
[2023-04-18 17:52] LABS: HCT 37.9 % (40.0-50.0); HGB 13.1 g/dL (13.5-17.5); MCH 33.4 pg (27.0-33.0); MCHC 34.6 % (32.0-36.0); MCV 97 fL (80-95); MPV 8.3 fL (8.0-11.0); Platelet Count 175 10^3/uL (130-400); RBC 3.92 10^6/uL (4.36-5.78); RDW 12.4 % (11.8-14.1); RDW-SD 44.3 fL; WBC 4.69 10^3/uL (4.4-10.8)
[2023-04-18 18:11] VITALS: BP 126/59; PULSE 68; RESP 18; O2SAT 97
[2023-04-18 18:11] LABS: ALT 34 U/L (16-63); AST 21 U/L (15-37); Albumin 3.4 g/dL (3.4-5.0); Alkaline Phosphatase 69 U/L (46-116); Anion Gap 6.9 mmol/L (3-11); BUN 25 mg/dL (7-18); Bilirubin, Total 0.4 mg/dL (0.2-1.0); CO2 28.1 mmol/L (21.0-32.0); CREATININE 1.2 mg/dL (0.70-1.30); Calcium 8.9 mg/dL (8.5-10.1); Chloride 104 mmol/L (98-107); Estimated GFR 66.28 (mL/min/1.73m2); Glucose 181 mg/dL (74-106); Potassium 3.8 mmol/L (3.5-5.1); Sodium 139 mmol/L (136-145); Troponin I < 50 ng/L (<or=60)
--- NOTE | 2023-04-18 18:47 | DI.VRAD_ITS ---
PROCEDURE INFORMATION: Exam: XR Chest Exam date and time: 04/18/2023 6:29 PM Age: 68 years old Clinical indication: Shortness of breath TECHNIQUE: Imaging protocol: Radiologic exam of the chest. Views: 1 view. COMPARISON: CR XR CHEST 2V PA LATERAL 03/20/2023 12:59 PM FINDINGS: Lungs: No consolidation. There is slightly decreased volume in the left lung, possibly atelectasis. Pleural spaces: No large pleural effusion. No pneumothorax. Heart/Mediastinum: No cardiomegaly. Bones/joints: Unremarkable. IMPRESSION: No significant consolidation. Dictated and Authenticated by: Sybil Zamora MD. Ordering:MONIQUE Rush MD
[2023-04-18 18:58] VITALS: BP 134/78; PULSE 72; RESP 18; O2SAT 98
[2023-04-18 20:42] VITALS: BP 137/57; PULSE 64; RESP 18; O2SAT 99
[2023-04-18 21:02] LABS: Troponin I < 50 ng/L (<or=60)
--- NOTE | 2023-04-18 21:17 | W.EDPROG ---
Date of service: 04/18/23 Time of Service: 21:17 Medical Decision Making patient signed out to me pending delta troponin and if negative d/c with pcp f/u. Second trop negative. Pt laying in bed in no distress and states he has no symptoms, stable vitals. He is stable for d/c, advised to f/u with his pcp, return precautions given Sign Out Sign Out Data: Sign Out Comment: 2nd trop pending, dispo per Last updated by Victor Manuel Mohan MD at 04/18/23 19:51 Discharge Plan Disposition Patient Disposition: Home Condition: Stable Discharge Details Clinical Impression: Shortness of breath Primary Care Provider: Royce Bishop ED Provider: Mark Smith Home Meds and New Rx's Prescriptions: Continued calcium carbonate-vitamin D3 [Calcium 600 with Vitamin D3] 600 mg-12.5 mcg (500 unit) capsule 2 cap PO DAILY Prolia 60 mg/mL syringe 60 mg subcut [id number] Qty: 1 0RF enzalutamide 40 mg capsule 120 mg PO DAILY budesonide-formoterol [Symbicort] 80-4.5 mcg/actuation HFA aerosol inhaler 2 puff IH BID Qty: 10.2 11RF lisinopril 10 mg tablet 15 mg PO DAILY Qty: 90 3RF Rx Instructions: dose increase September 25, 2022 pravastatin 40 mg tablet 40 mg PO HS Qty: 90 3RF albuterol sulfate [Proventil HFA] 90 mcg/actuation HFA aerosol inhaler 2 puff inhalation Q6H PRN (Reason: shortness of breath or wheezing) Qty: 8.5 8RF albuterol sulfate 2.5 mg /3 mL (0.083 %) solution for nebulization 2.5 mg inhalation QID PRNQty: 90 0RF Lupron Depot (3 month) 11.25 mg Syringe Kit 11.25 mg IM QMONTH Discharge Instructions Instructions: Dyspnea (ED) Additional Instructions: Your lab tests and xray today as well as your vital signs did not show significant abnormalities Follow up with your primary care provider within 1 week if you feel more ill, have worsening shortness of breath or severe chest pain return to the emergency department
[2023-04-18 21:28] VITALS: BP 137/57; PULSE 64; RESP 18; TEMP 37; O2SAT 99
== END 2023-04-18 21:27 | disposition home or self-care (01) ==
PROVIDERS: Emergency Medicine; Emergency Provider Emergency Medicine; PCP Family Medicine
DX: R06.02 Shortness of breath (principal); J45.909 Unspecified asthma, uncomplicated; R07.9 Chest pain, unspecified; I48.91 Unspecified atrial fibrillation
CPT/HCPCS: 80053; 85027; 93005; 99284; 71045; 84484; 93010

== ENCOUNTER 2023-04-26 02:18 | Outpatient (CLI) | payer MEDICARE, SELFPAY ==
[2023-04-26 15:45] LABS: Abs Immature Grans 0.02 10^3/uL (0.0-0.06); Absolute Basophil Count 0.04 10^3/uL (0.0-0.2); Absolute Eosinophil Count 0.04 10^3/uL (0.0-0.7); Absolute Lymphocyte Count 0.78 10^3/uL (1.2-3.4); Absolute Monocyte Count 0.45 10^3/uL (0.1-0.8); Absolute Neutrophil Count 3.37 10^3/uL (1.2-6.7); Basophils % 0.9; Eosinophils % 0.9; HCT 39.9 % (40.0-50.0); HGB 13.5 g/dL (13.5-17.5); Immature Grans % 0.4; Lymphocytes % 16.6; MCH 32.9 pg (27.0-33.0); MCHC 33.8 % (32.0-36.0); MCV 97 fL (80-95); Monocytes % 9.6; Neutrophils % 71.6; Platelet Count 177 10^3/uL (130-400); RDW 12.4 % (11.8-14.1); RDW-SD 44.7 fL
[2023-04-26 16:03] LABS: ALT 47 U/L (16-63); AST 39 U/L (15-37); Albumin 3.8 g/dL (3.4-5.0); Alkaline Phosphatase 68 U/L (46-116); Anion Gap 5.4 mmol/L (3-11); BUN 21 mg/dL (7-18); Bilirubin, Total 0.4 mg/dL (0.2-1.0); CO2 28.6 mmol/L (21.0-32.0); Calcium 9.5 mg/dL (8.5-10.1); Chloride 105 mmol/L (98-107); Estimated GFR 82.49 (mL/min/1.73m2); Glucose 89 mg/dL (74-106); Potassium 4.7 mmol/L (3.5-5.1); Sodium 139 mmol/L (136-145); Total Protein 7.4 g/dL (6.4-8.2)
[2023-04-26 16:20] LABS: ALT 48 U/L (16-63); Anion Gap 6.5 mmol/L (3-11); BUN 20 mg/dL (7-18); CO2 27.5 mmol/L (21.0-32.0); Calcium 9.3 mg/dL (8.5-10.1); Calculated LDL 124 mg/dL (<100); Chloride 106 mmol/L (98-107); Cholesterol 196 mg/dL (<200); Estimated GFR 82.49 (mL/min/1.73m2); Glucose 88 mg/dL (74-106); HDL Cholesterol 52 mg/dL (40-60); Potassium 4.8 mmol/L (3.5-5.1); Sodium 140 mmol/L (136-145); Triglyceride 101 mg/dL (<150)
[2023-04-30 12:06] LABS: PSA, Ultrasensitive <0.01 ng/mL (<= 4.5)
[2023-05-03 13:50] LABS: Testosterone, Total 14 ng/dL (240-950)
== END 2023-04-26 02:19 | disposition home or self-care (01) ==
LOC: LBO 02:19
PROVIDERS: Family Medicine; Nurse Practitioner Adult Health; PCP Family Medicine; Visit Provider Family Medicine
DX: C61 Malignant neoplasm of prostate (principal); C79.51 Secondary malignant neoplasm of bone; E78.5 Hyperlipidemia, unspecified; I10 Essential (primary) hypertension
CPT/HCPCS: 36415; 80048; 80053; 80061; 84153; 84403; 84460; 85025

== ENCOUNTER 2023-05-16 01:18 | Outpatient (CLI) | payer MEDICARE, MEDICAID, SELFPAY ==
--- NOTE | 2023-05-16 07:15 | DI.NM_ITS ---
APPROVED REPORT Exam: Exercise Treadmill Patient Location: Out-Patient Room/Bed: Stress Nurse: Radha Culver RN Ordering Provider:KYLAH GUTIERREZ, Contact Number: [phone] BMI: 35.82 Baseline Rhythm: Sinus Bradycardia Comment: T wave inversion in lead III Indications: Chest pain Medical History Medical History: Essential HTN, DNI/DNR, HLD, mild persistent asthma, obesity Cardiac Medications: Pravastatin, nitro, lisinopril, enzalutamide, calsium carbonate/ vitamin D3, lup clement, albuterol, symbicort, denosumab Allergies: Penicillins, oxycodone, atorvastatin Cardiac Risk Factors: Family hx, HTN, HLD, asthma, obesity Previous Cardiac Procedures: None Pretest Chest Pain Characteristics: 5/10 chest tightness Exercise History: Indeterminate Physical Disabilities: None Lung Sounds: Clear to auscultation Heart Sounds: Regular Stress Test Details Test: Exercise stress testing was performed using a Joshua protocol. Nuclear Acquisition: Rest Tc-99m/Stress Tc-99m 1 day Rest Isotope: Tc-99m Sestamibi. Dose: 11.0 Date: 05/16/2023 Injection Time: 0845 Stress Isotope: Tc-99m Sestamibi. Dose: 36.0 Date: 05/16/2023 Injection Time: 1100 HR Resting HR Supine: 58 bpm Max Heart Rate (APMHR): 153.266692 bpm Resting HR Standin bpm Target HR (85% APMHR): 130.318094 bpm Max HR Achieved: 136 bpm % of APMHR: 88.89 Recovery HR: 69 bpm HR response to stress: Normal HR response to stress BP Resting BP Supine: 170/84 mmHg Resting BP Standin/84 mmHg Max BP: 190/76 mmHg Recovery BP: 162/72 mmHg BP response to stress: Normal blood pressure response to stress. ECG Resting ECG: Sinus Bradycardia Ectopy: Occasional PVC, rare PAC Stress ECG: Sinus Tachycardia ST Change: No significant ST segment changes noted Arrhythmia: Occasional PVC Recovery ECG: Sinus Rhythm Recovery ST Change: No significant ST segment changes noted Recovery Arrhythmia: Occasional PAC, occasional PVC Clinical Reason for Termination: Target HR Achieved, Fatigue, Dyspnea Stress Symptoms: General Fatigue, Dyspnea Exercise duration: 05 min26 sec Highest Stage Reached: Stage 2: 2.5 mph at 12% grade. Exercise capacity: 7.05 METs Angina Score: Non-Limiting Butler Treadmill Score: 0.7 Rate Pressure Product: 79108 Stress ECG Conclusion 1. Resting electrocardiogram was within normal limits 2. Patient exercised on the Joshua protocol and completed a workload of 7.05 METS 3. Normal hemodynamic response to exercise. The patient achieved 89% of predicted heart rate for age 4. Electrocardiographic portion of the test was negative for myocardial ischemia 5. See MPI report Butler Treadmill Score is 0.7 which is Moderate risk. Stress Test Summary STAGE Time (mins) Speed (mph) Grade (%) HR BP SpO2 SYMPTOMS METS Supine 58 170/84 95 5/10 chest tightness Standing 68 152/84 5/10 chest tightness 1 3 1.7 10 114 160/88 5/10 chest tightness 4.5 2 6 2.5 12 136 5/10 chest tightness , mild dyspnea, fatigue 7 1 min recovery 117 190/76 5/10 chest tightness , mild dyspnea, fatigue 3 min recovery 81 192/78 5/10 chest tightness , mild dyspnea resolving 6 min recovery 69 162/72 Chest tightness unchanged, dyspnea resolved MPI Conclusion Myocardial perfusion is normal. There is no ischemia or evidence of prior infarction Ejection fraction is 64%, wall motion is normal Radiologist Interpretation Radiologist agrees with Pretzel Twisting Machine Operator's Interpretation. Radiologist Interpretation by: Mary Samuels MD Interpretation Date/Time: 05/16/2023 17:32:44
== END 2023-05-16 01:38 ==
PROVIDERS: PCP Family Medicine; Visit Provider Family Medicine
DX: R07.9 Chest pain, unspecified (principal)
CPT/HCPCS: 78452; 93016; 93018; 93017

== ENCOUNTER 2023-06-25 04:01 | Outpatient (CLI) | payer MEDICARE, MEDICAID, SELFPAY ==
[2023-06-25 12:34] LABS: Abs Immature Grans 0.02 10^3/uL (0.0-0.06); Absolute Basophil Count 0.04 10^3/uL (0.0-0.2); Absolute Eosinophil Count 0.03 10^3/uL (0.0-0.7); Absolute Lymphocyte Count 0.88 10^3/uL (1.2-3.4); Absolute Monocyte Count 0.39 10^3/uL (0.1-0.8); Absolute Neutrophil Count 3.14 10^3/uL (1.2-6.7); Basophils % 0.9; Eosinophils % 0.7; HCT 40.8 % (40.0-50.0); Immature Grans % 0.4; Lymphocytes % 19.6; MCH 33.1 pg (27.0-33.0); MCHC 34.3 % (32.0-36.0); MCV 97 fL (80-95); MPV 8.1 fL (8.0-11.0); Monocytes % 8.7; Neutrophils % 69.7; Platelet Count 169 10^3/uL (130-400); RBC 4.23 10^6/uL (4.36-5.78); RDW 12.7 % (11.8-14.1); RDW-SD 44.6 fL
[2023-06-25 13:04] LABS: ALT 74 U/L (16-63); AST 48 U/L (15-37); Albumin 3.9 g/dL (3.4-5.0); Alkaline Phosphatase 100 U/L (46-116); Anion Gap 7.3 mmol/L (3-11); BUN 17 mg/dL (7-18); Bilirubin, Total 0.5 mg/dL (0.2-1.0); CO2 27.7 mmol/L (21.0-32.0); Calcium 9.8 mg/dL (8.5-10.1); Chloride 104 mmol/L (98-107); Estimated GFR 82.49 (mL/min/1.73m2); Glucose 97 mg/dL (74-106); Potassium 4.5 mmol/L (3.5-5.1); Sodium 139 mmol/L (136-145); Total Protein 7.5 g/dL (6.4-8.2)
[2023-06-26 16:45] LABS: PSA, Ultrasensitive <0.01 ng/mL (<= 4.5)
[2023-06-30 15:29] LABS: Testosterone, Total 13 ng/dL (240-950)
== END 2023-06-25 04:02 | disposition home or self-care (01) ==
PROVIDERS: PCP Family Medicine; Visit Provider Nurse Practitioner Adult Health
DX: C79.51 Secondary malignant neoplasm of bone (principal); C61 Malignant neoplasm of prostate
CPT/HCPCS: 36415; 80053; 84153; 84403; 85025

== ENCOUNTER → 2023-08-07 01:49 | Outpatient (CLI) | payer MEDICARE, MEDICAID, SELFPAY ==
--- NOTE | 2023-08-07 | DI.CT_ITS ---
Exam(s) CT CHEST/ABD/PEL W EXAM: CT CHEST/ABD/PEL W CLINICAL HISTORY: PROSTATE CA METS TO BONE, C61, C79.51, RESTAGING. TECHNIQUE: Imaging Protocol: Axial computed tomography images with coronal and sagittal reformatted images were created and reviewed CONTRAST MATERIAL: Intravenous: Omnipaque 350 Contrast volume:100 ml Oral: yes / COMPARISON: NM NM BONE SCAN WHOLE BODY GRP from 10/19/[address] CHEST/ABD/PEL W from 10/19/2020 NM NM BONE SCAN WHOLE BODY GRP from 04/19/[address] CHEST/ABD/PEL W from 04/19/[address] CHEST PE ABD PELVIS W from 03/20/2023 CR,XR XR PORTABLE CHEST AP from 04/18/2023 CT,NM,TMT NM MPI REST STRESS GRP from 05/16/2023 FINDINGS: CHEST: Tracheobronchial tree: Patent where visualized. Pulmonary parenchyma: No consolidation or dominant measurable mass. Mild linear atelectasis at the l selina bases. Pleura: No effusion or pneumothorax. Lymph nodes: Within normal limits. Aorta: Thoracic portion non-dilated. Heart: Normal size. Minimal coronary artery calcifications. No pericardial effusion. Bones: Degenerative disc changes with endplate osteophytes. Areas of sclerosis again noted at the en dplates.. No lytic or blastic lesions.No compression fractures. ABDOMEN and PELVIS: Liver: Enlarged. Severe hepatic steatosis. No measurable mass. Gallbladder and biliary tract: No evidence of stones or wall thickening. No biliary dilatation. Pancreas: Normal density, no abnormal calcifications or inflammatory process. Spleen: Normal. Kidneys: Normal size, contour and axis. No radiodense stones or obstructive uropathy. No suspicious m asses seen. Adrenal glands: No masses seen. Aorta: Abdominal portion non-dilated. Mild atherosclerotic changes. Lymph nodes: Within normal limits. Soft tissues: Unremarkable. Bladder: Unremarkable. Bowel: No obstruction or bowel wall thickening. Peritoneal cavity: No ascites. No focal collection or mesenteric inflammatory response. Bones: Degenerative disc changes. Area of sclerosis previously seen in the sacrum is no longer prese nt. Reproductive organs: Status post prostatectomy. IMPRESSION: No evidence of metastatic disease in the chest, abdomen or pelvis.. RADIATION DOSE DELIVERED: 2,499.49mGy.cm Total DLP DATA REPOSITORY: All CT scans at this facility are submitted to the National Radiology Data Registry (NRDR) Dose Index Registry (DIR) with the [employer] (ACR). RADIATION OPTIMIZATION: All CT scans at this facility use at least one of these dose optimization te chniques: automated exposure control; mA and/or kV adjustment per patient size (includes targeted exa ms where dose is matched to clinical indication); or iterative reconstruction.
--- NOTE | 2023-08-07 08:15 | DI.NM_ITS ---
Exam(s) ME BONE SCAN WHOLE BODY GRP EXAM: ME BONE SCAN WHOLE BODY GRP CLINICAL HISTORY: PROSTATE CA, METS TO BONE, C61, C79.51, RESTAGING. TECHNIQUE: Injected Dose: 25 mCi Tc-99m MDP Delayed Images: 2-3 hours. COMPARISON: [facility] BONE SCAN WHOLE BODY GRP from 04/19/[address] CHEST/ABD/PEL W from 08/07/2023 FINDINGS: Exam mildly limited by urine contamination. Symmetric axial uptake. Bilateral renal excretion is identified. Tiny focus of increased activity seen in the right lower sacrum, decreasing in prominence compared to the previous bone scan. No focus of sclerosis was visible on CT scan performed the same day. IMPRESSION: 1. Significant interval decrease in size of active lesion in the right mid sacrum. No new lesions. DATA REPOSITORY:
[2023-08-07 08:39] LABS: Abs Immature Grans 0.01 10^3/uL (0.0-0.06); Absolute Basophil Count 0.02 10^3/uL (0.0-0.2); Absolute Eosinophil Count 0.02 10^3/uL (0.0-0.7); Absolute Lymphocyte Count 0.66 10^3/uL (1.2-3.4); Absolute Monocyte Count 0.32 10^3/uL (0.1-0.8); Absolute Neutrophil Count 2.24 10^3/uL (1.2-6.7); Basophils % 0.6; Eosinophils % 0.6; HCT 38.6 % (40.0-50.0); HGB 12.9 g/dL (13.5-17.5); Immature Grans % 0.3; Lymphocytes % 20.2; MCH 33.7 pg (27.0-33.0); MCHC 33.4 % (32.0-36.0); MCV 101 fL (80-95); MPV 8.6 fL (8.0-11.0); Monocytes % 9.8; Neutrophils % 68.5; Platelet Count 174 10^3/uL (130-400); RBC 3.83 10^6/uL (4.36-5.78); RDW 12.4 % (11.8-14.1); RDW-SD 46.2 fL; WBC 3.27 10^3/uL (4.4-10.8)
[2023-08-07] MEDS: Barium Sulfate 2% W/V-Berry Smoothie 450 ML BTL PO (08:47)
[2023-08-07 08:54] LABS: ALT 64 U/L (16-63); AST 35 U/L (15-37); Albumin 3.5 g/dL (3.4-5.0); Alkaline Phosphatase 127 U/L (46-116); Anion Gap 6.8 mmol/L (3-11); BUN 15 mg/dL (7-18); Bilirubin, Total 0.3 mg/dL (0.2-1.0); CO2 27.2 mmol/L (21.0-32.0); CREATININE 1.1 mg/dL (0.70-1.30); Calcium 9.3 mg/dL (8.5-10.1); Chloride 105 mmol/L (98-107); Estimated GFR 73.58 (mL/min/1.73m2); Glucose 125 mg/dL (74-106); Potassium 4.5 mmol/L (3.5-5.1); Sodium 139 mmol/L (136-145); Total Protein 7.3 g/dL (6.4-8.2)
[2023-08-07] MEDS: Normal Saline - Diluent 50 ML VIAL IJ (09:57)
[2023-08-07] MEDS: Omnipaque 350 MG/ML 500 ML BTL-Imaging package IJ (09:58)
[2023-08-07] MEDS: Normal Saline Flush 10 ML SYR IVP (09:59)
[2023-08-08 17:28] LABS: PSA, Ultrasensitive <0.01 ng/mL (<= 4.5)
[2023-08-12 20:27] LABS: Testosterone, Total 15 ng/dL (240-950)
== END ==
PROVIDERS: PCP Family Medicine; Visit Provider Internal Medicine
DX: C61 Malignant neoplasm of prostate (principal)
CPT/HCPCS: 74177; 78306; 80053; 84153; 84403; 71260; 85025

== ENCOUNTER 2023-08-27 02:56 | Outpatient (CLI) | payer MEDICARE, MEDICAID, SELFPAY ==
[2023-08-27 09:06] LABS: Abs Immature Grans 0.01 10^3/uL (0.0-0.06); Absolute Basophil Count 0.04 10^3/uL (0.0-0.2); Absolute Eosinophil Count 0.05 10^3/uL (0.0-0.7); Absolute Lymphocyte Count 0.75 10^3/uL (1.2-3.4); Absolute Monocyte Count 0.42 10^3/uL (0.1-0.8); Absolute Neutrophil Count 2.76 10^3/uL (1.2-6.7); Eosinophils % 1.2; Immature Grans % 0.2; Lymphocytes % 18.6; MCH 33.2 pg (27.0-33.0); MCHC 33.3 % (32.0-36.0); MCV 100 fL (80-95); Monocytes % 10.4; Neutrophils % 68.6; Platelet Count 153 10^3/uL (130-400); RBC 3.92 10^6/uL (4.36-5.78); RDW 12.3 % (11.8-14.1); RDW-SD 44.9 fL; WBC 4.03 10^3/uL (4.4-10.8)
[2023-08-27 09:26] LABS: ALT 78 U/L (16-63); AST 49 U/L (15-37); Albumin 3.5 g/dL (3.4-5.0); Alkaline Phosphatase 141 U/L (46-116); Anion Gap 8.5 mmol/L (3-11); BUN 17 mg/dL (7-18); Bilirubin, Total 0.4 mg/dL (0.2-1.0); CO2 27.5 mmol/L (21.0-32.0); CREATININE 1.2 mg/dL (0.70-1.30); Calcium 9.6 mg/dL (8.5-10.1); Chloride 103 mmol/L (98-107); Estimated GFR 66.28 (mL/min/1.73m2); Glucose 128 mg/dL (74-106); Potassium 4.6 mmol/L (3.5-5.1); Sodium 139 mmol/L (136-145); Total Protein 7.3 g/dL (6.4-8.2)
[2023-08-28 20:38] LABS: PSA, Ultrasensitive <0.01 ng/mL (<= 4.5)
[2023-08-30 09:50] LABS: Testosterone, Total 27 ng/dL (240-950)
== END 2023-08-27 02:57 | disposition home or self-care (01) ==
LOC: LBO 02:56
PROVIDERS: PCP Family Medicine; Visit Provider Internal Medicine
DX: C61 Malignant neoplasm of prostate (principal); C79.51 Secondary malignant neoplasm of bone
CPT/HCPCS: 36415; 80053; 84153; 84403; 85025

== ENCOUNTER → 2023-11-01 00:40 | Outpatient (CLI) | payer MEDICARE, MEDICAID, SELFPAY ==
--- NOTE | 2023-11-01 | DI.DEXA_ITS ---
Exam(s) XR DEXA BONE DENSITY W/WO ALBERTINA EXAM: XR DEXA BONE DENSITY W/WO ALBERTINA CLINICAL HISTORY: ANDROGEN DEPRIVATION THERAPY, Z79.818, OSTEOPOROSIS W/O PATHOLOGICAL FX TECHNIQUE: Holo[employer]ioMed Spine Horizon C densitometer analysis of left hip, lumbar spine and left forearm. Lat eral survey image of the thoracic and lumbar spine. COMPARISON: CR XR DEXA BONE DENSITY W/WO ALBERTINA from 12/15/2019 FINDINGS: Lateral view of the thoracic and lumbar spine shows no evidence of compression fractures. Bone mineral density measurements of the lumbar spine correspond to a total T-score of -1.3, in the osteopenic range. Unchanged from prior Bone mineral density measurements of the left hip correspond to a total T-score of -0.7, in the norm al range. No change from prior.. The femoral neck T-score is -1.3, in the osteopenic range.. Theright forearm bone mineral density measurements correspond to a T-score of the distal 3rd of -2.8 , in the osteoporotic range. No significant change from prior. IMPRESSION: Osteoporosis of the forearm. Osteopenia of the spine and hip.
== END ==
PROVIDERS: PCP Family Medicine; Visit Provider Internal Medicine
DX: Z79.818 Long term (current) use of other agents affecting estrogen receptors and estrogen levels (principal); Z13.820 Encounter for screening for osteoporosis; M81.0 Age-related osteoporosis without current pathological fracture
CPT/HCPCS: 77080

== ENCOUNTER 2023-11-14 00:58 | Outpatient (CLI) | payer MEDICARE, MEDICAID, SELFPAY ==
[2023-11-14 10:14] LABS: Abs Immature Grans 0.03 10^3/uL (0.0-0.06); Absolute Basophil Count 0.03 10^3/uL (0.0-0.2); Absolute Eosinophil Count 0.03 10^3/uL (0.0-0.7); Absolute Monocyte Count 0.35 10^3/uL (0.1-0.8); Absolute Neutrophil Count 3.36 10^3/uL (1.2-6.7); Basophils % 0.7; Eosinophils % 0.7; HCT 42.3 % (40.0-50.0); HGB 13.9 g/dL (13.5-17.5); Immature Grans % 0.7; Lymphocytes % 15.6; MCH 32.6 pg (27.0-33.0); MCHC 32.9 % (32.0-36.0); MCV 99 fL (80-95); MPV 8.2 fL (8.0-11.0); Monocytes % 7.8; Neutrophils % 74.5; Platelet Count 173 10^3/uL (130-400); RBC 4.27 10^6/uL (4.36-5.78); RDW 12.3 % (11.8-14.1); RDW-SD 45.2 fL
[2023-11-14 10:52] LABS: ALT 64 U/L (16-63); AST 61 U/L (15-37); Albumin 3.5 g/dL (3.4-5.0); Alkaline Phosphatase 140 U/L (46-116); Anion Gap 7.9 mmol/L (3-11); BUN 27 mg/dL (7-18); Bilirubin, Total 0.5 mg/dL (0.2-1.0); CO2 28.1 mmol/L (21.0-32.0); CREATININE 1.2 mg/dL (0.70-1.30); Calcium 9.6 mg/dL (8.5-10.1); Chloride 103 mmol/L (98-107); Estimated GFR 66.28 (mL/min/1.73m2); Glucose 140 mg/dL (74-106); Potassium 5.3 mmol/L (3.5-5.1); Sodium 139 mmol/L (136-145)
[2023-11-15 17:39] LABS: PSA, Ultrasensitive <0.01 ng/mL (<= 4.5)
[2023-11-19 12:31] LABS: Testosterone, Total 128 ng/dL (240-950)
== END 2023-11-14 00:59 | disposition home or self-care (01) ==
LOC: LBO 00:58
PROVIDERS: PCP Family Medicine; Visit Provider Internal Medicine
DX: C61 Malignant neoplasm of prostate (principal); C79.51 Secondary malignant neoplasm of bone
CPT/HCPCS: 36415; 80053; 84153; 84403; 85025

== ENCOUNTER 2023-12-27 15:13 | Outpatient (CLI) | payer MEDICARE, MEDICAID, SELFPAY ==
[2023-12-27 16:48] LABS: Hemoglobin A1C 6.6 % (<5.7)
== END 2023-12-27 15:14 | disposition home or self-care (01) ==
LOC: LBO 15:13
PROVIDERS: PCP Family Medicine; Visit Provider Family Medicine
DX: E11.51 Type 2 diabetes mellitus with diabetic peripheral angiopathy without gangrene (principal)
CPT/HCPCS: 36415; 83036

== ENCOUNTER 2024-02-10 05:16 | Outpatient (CLI) | payer MEDICARE, MEDICAID, SELFPAY ==
[2024-02-10 11:51] LABS: Abs Immature Grans 0.02 10^3/uL (0.0-0.06); Absolute Basophil Count 0.03 10^3/uL (0.0-0.2); Absolute Eosinophil Count 0.16 10^3/uL (0.0-0.7); Absolute Lymphocyte Count 0.76 10^3/uL (1.2-3.4); Absolute Monocyte Count 0.44 10^3/uL (0.1-0.8); Absolute Neutrophil Count 3.06 10^3/uL (1.2-6.7); Basophils % 0.7; Eosinophils % 3.6; HCT 42.1 % (40.0-50.0); HGB 14.1 g/dL (13.5-17.5); Immature Grans % 0.4; MCHC 33.5 % (32.0-36.0); MCV 99 fL (80-95); MPV 8.8 fL (8.0-11.0); Monocytes % 9.8; Neutrophils % 68.5; Platelet Count 159 10^3/uL (130-400); RBC 4.27 10^6/uL (4.36-5.78); RDW 12.6 % (11.8-14.1); RDW-SD 45.4 fL; WBC 4.47 10^3/uL (4.4-10.8)
[2024-02-10 12:16] LABS: ALT 76 U/L (16-63); AST 73 U/L (15-37); Albumin 3.8 g/dL (3.4-5.0); Alkaline Phosphatase 118 U/L (46-116); Anion Gap 7.9 mmol/L (3-11); BUN 20 mg/dL (7-18); Bilirubin, Total 0.5 mg/dL (0.2-1.0); CO2 28.1 mmol/L (21.0-32.0); CREATININE 1.1 mg/dL (0.70-1.30); Calcium 9.6 mg/dL (8.5-10.1); Chloride 103 mmol/L (98-107); Estimated GFR 73.58 (mL/min/1.73m2); Glucose 84 mg/dL (74-106); Potassium 4.6 mmol/L (3.5-5.1); Sodium 139 mmol/L (136-145); Total Protein 7.9 g/dL (6.4-8.2)
[2024-02-12 12:27] LABS: PSA, Ultrasensitive 0.02 ng/mL (<= 4.5)
[2024-02-14 13:18] LABS: Testosterone, Total 314 ng/dL (240-950)
== END 2024-02-10 05:17 | disposition home or self-care (01) ==
LOC: LBO 05:16
PROVIDERS: PCP Family Medicine; Visit Provider Internal Medicine
DX: C61 Malignant neoplasm of prostate (principal)
CPT/HCPCS: 36415; 80053; 84153; 84403; 85025

== ENCOUNTER 2024-05-11 03:06 | Outpatient (CLI) | payer MEDICARE, SELFPAY ==
[2024-05-11 12:43] LABS: Abs Immature Grans 0.01 10^3/uL (0.0-0.06); Absolute Basophil Count 0.03 10^3/uL (0.0-0.2); Absolute Eosinophil Count 0.03 10^3/uL (0.0-0.7); Absolute Lymphocyte Count 0.71 10^3/uL (1.2-3.4); Absolute Monocyte Count 0.42 10^3/uL (0.1-0.8); Absolute Neutrophil Count 3.54 10^3/uL (1.2-6.7); Basophils % 0.6 %; Eosinophils % 0.6 %; HCT 41.3 % (40.0-50.0); HGB 13.7 g/dL (13.5-17.5); Immature Grans % 0.2 %; MCH 32.7 pg (27.0-33.0); MCHC 33.2 % (32.0-36.0); MCV 99 fL (80-95); MPV 8.7 fL (8.0-11.0); Monocytes % 8.9 %; Neutrophils % 74.7 %; Platelet Count 167 10^3/uL (130-400); RBC 4.19 10^6/uL (4.36-5.78); RDW 12.5 % (11.8-14.1); RDW-SD 45.2 fL; WBC 4.74 10^3/uL (4.4-10.8)
[2024-05-11 13:03] LABS: ALT 46 U/L (16-63); AST 36 U/L (15-37); Alkaline Phosphatase 96 U/L (46-116); Anion Gap 9.8 mmol/L (3-11); BUN 19 mg/dL (7-18); Bilirubin, Total 0.69 mg/dL (0.2-1.0); CO2 25.2 mmol/L (21.0-32.0); CREATININE 1.3 mg/dL (0.70-1.30); Calcium 9.4 mg/dL (8.5-10.1); Chloride 104 mmol/L (98-107); Estimated GFR 59.84 (mL/min/1.73m2); Glucose 100 mg/dL (74-106); Potassium 4.7 mmol/L (3.5-5.1); Sodium 139 mmol/L (136-145); Total Protein 7.7 g/dL (6.4-8.2)
[2024-05-13 13:10] LABS: PSA, Ultrasensitive 3.6 ng/mL (<= 4.5)
[2024-05-15 03:38] LABS: Testosterone, Total 489 ng/dL (240-950)
== END 2024-05-11 03:07 | disposition home or self-care (01) ==
LOC: LBO 03:06
PROVIDERS: PCP Family Medicine; Visit Provider Internal Medicine
DX: C61 Malignant neoplasm of prostate (principal)
CPT/HCPCS: 36415; 80053; 84153; 84403; 85025

== ENCOUNTER → 2024-06-10 00:48 | Outpatient (CLI) | payer MEDICARE, MEDICAID, SELFPAY ==
--- NOTE | 2024-06-10 | DI.CT_ITS ---
Exam(s) CT CHEST/ABD/PEL W EXAM: CT CHEST/ABD/PEL W CLINICAL HISTORY: CANCER OF PROSTATE METASTATIC TO BONE, C61, C79.51 TECHNIQUE: Imaging Protocol: Axial computed tomography images with coronal and sagittal reformatted images were created and reviewed CONTRAST MATERIAL: Intravenous: Omnipaque 350 contrast volume:100 mL Oral: Yes COMPARISON: NM NM BONE SCAN WHOLE BODY GRP from 08/07/[address] CHEST/ABD/PEL W from 08/07/2023 FINDINGS: CHEST: Tracheobronchial tree: Patent where visualized. Pulmonary parenchyma: No consolidation or dominant measurable mass. No architectural distortion. Visualized thyroid gland: Unremarkable. Mediastinum and Zoë: No dominant adenopathy or fluid collection. The esophagus is unremarkable. Pleura: No effusion or pneumothorax. Heart: The heart is not dilated. Coronary artery calcifications are present. No pericardial effusion . Pulmonary arteries: No pulmonary emboli are identified. Aorta: Thoracic aorta non-dilated. Atherosclerotic calcifications are present. There is no evidence of dissection. Lymph nodes: Within normal limits. Soft tissues: Unremarkable. Bones:Within normal limits for the patient's age. ABDOMEN: Liver: Normal density. No measurable mass. Portal, Superior Mesenteric, and Splenic Veins: Unremarkable. Gallbladder and Biliary Tract: No radiodense calculus or dilation. Pancreas: Normal density, no abnormal calcifications or inflammatory process. Spleen: Normal. Adrenals: No masses seen. Kidneys: Normal size, contour and axis. No radiodense stones or obstructive uropathy. No masses seen. Abdominal Aorta: Abdominal portion non-dilated. Atherosclerotic calcification is present. Bowel: No obstruction or bowel wall thickening. Appendix is unremarkable. Peritoneal Cavity: No ascites, collection or mesenteric inflammatory response. No free air. Lymph Nodes: Within normal limits. Bones: There is a sclerotic focus in the right mid sacrum which was identified in the nuclear medicin e examination from 07/21/2023. Soft Tissues: Unremarkable. PELVIS: Bladder: Symmetric distention, no gross wall thickening. Reproductive Organs: Status post prostatectomy. Lymph Nodes: Within normal limits. Bones: Within normal limits. IMPRESSION: 1. No evidence of thoracic metastatic disease. 2. No evidence of abdominal or pelvic metastatic disease. 3. Findings of osseous metastatic disease. Increased conspicuity of the right mid sacral lesion whic h was identified on the nuclear medicine examination on 07/21/2023. RADIATION DOSE DELIVERED: Total DLP DATA REPOSITORY: All CT scans at this facility are submitted to the National Radiology Data Registry (NRDR) Dose Index Registry (DIR) with the [employer] (ACR). RADIATION OPTIMIZATION: All CT scans at this facility use at least one of these dose optimization te chniques: automated exposure control; mA and/or kV adjustment per patient size (includes targeted exa ms where dose is matched to clinical indication); or iterative reconstruction.
--- NOTE | 2024-06-10 | DI.NM_ITS ---
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 TECHNIQUE: Injected Dose: 25 mCi Tc-99m MDP Delayed Images: 2-3 hours. COMPARISON: [facility] BONE SCAN WHOLE BODY GRP from 08/07/[address] CHEST/ABD/PEL W from 06/10/2024 FINDINGS: There is again noted a solitary focus of significant increased uptake in the right paracentral aspect of the mid sacrum, this corresponding to sclerotic osseous metastatic disease as seen on CT scan per formed today. There are no other foci of abnormal radiopharmaceutical uptake in the skeleton with the exception inc reased uptake in the distal radius and ulna of the right wrist which is most probably degenerative or post fracture and left elbow either within the distal humerus or proximal ulna IMPRESSION: 1. Abnormal focal uptake in the right paracentral mid sacrum, this corresponding to sclerotic metasta tic disease seen on on today's CT scan. 2. Uptake in the right wrist and left elbow which are unlikely to be metastatic disease. Neverthele ss, recommend plain film correlation of the right wrist and left elbow if there are not prior documen yu fractures at these areas. There do not appear to be prior imaging studies of these 2 regions in our PACS DATA REPOSITORY:
[2024-06-10] MEDS: Barium Sulfate 2% W/V-Berry Smoothie 450 ML BTL PO ×2 (09:00→09:01)
[2024-06-10 09:13] LABS: Absolute Basophil Count 0.03 10^3/uL (0.0-0.2); Absolute Eosinophil Count 0.03 10^3/uL (0.0-0.7); Absolute Lymphocyte Count 0.63 10^3/uL (1.2-3.4); Absolute Monocyte Count 0.37 10^3/uL (0.1-0.8); Absolute Neutrophil Count 2.54 10^3/uL (1.2-6.7); Basophils % 0.8 %; Eosinophils % 0.8 %; HCT 40.9 % (40.0-50.0); HGB 13.8 g/dL (13.5-17.5); Lymphocytes % 17.5 %; MCH 32.9 pg (27.0-33.0); MCHC 33.7 % (32.0-36.0); MCV 97 fL (80-95); MPV 8.5 fL (8.0-11.0); Monocytes % 10.3 %; Neutrophils % 70.6 %; Platelet Count 144 10^3/uL (130-400); RDW 12.5 % (11.8-14.1); RDW-SD 44.3 fL
[2024-06-10 09:21] LABS: ALT 41 U/L (16-63); AST 28 U/L (15-37); Albumin 4.1 g/dL (3.4-5.0); Alkaline Phosphatase 93 U/L (46-116); Anion Gap 7.5 mmol/L (3-11); BUN 19 mg/dL (7-18); CO2 28.5 mmol/L (21.0-32.0); CREATININE 1.3 mg/dL (0.70-1.30); Calcium 9.5 mg/dL (8.5-10.1); Chloride 103 mmol/L (98-107); Estimated GFR 59.84 (mL/min/1.73m2); Glucose 84 mg/dL (74-106); Potassium 4.7 mmol/L (3.5-5.1); Sodium 139 mmol/L (136-145); Total Protein 7.9 g/dL (6.4-8.2)
[2024-06-10] MEDS: Normal Saline - Diluent 50 ML VIAL IJ (10:38)
[2024-06-10] MEDS: Omnipaque 350 MG/ML 100 ML BTL IJ (10:39)
[2024-06-14 12:41] LABS: Testosterone, Total 601 ng/dL (240-950)
== END ==
PROVIDERS: Internal Medicine; PCP Family Medicine; Visit Provider Nurse Practitioner
DX: C61 Malignant neoplasm of prostate (principal); C79.51 Secondary malignant neoplasm of bone
CPT/HCPCS: 74177; 78306; 80053; 84153; 84403; 71260; 85025; J3490

== ENCOUNTER 2024-06-11 09:30 | Outpatient (REF) | payer MEDICARE, SELFPAY ==
[2024-06-11 14:40] LABS: COMMENT (LAB VIEW ONLY) 73.58 mg/dL; Microalb ug/mg Crea 82.9 ug/mg Cr
== END 2024-06-11 09:31 | disposition home or self-care (01) ==
LOC: LBN 09:30
PROVIDERS: PCP Family Medicine; Visit Provider Family Medicine
DX: E11.9 Type 2 diabetes mellitus without complications (principal)
CPT/HCPCS: 82043; 82570

== ENCOUNTER → 2024-06-25 01:07 | Outpatient (CLI) | payer MEDICARE, SELFPAY ==
--- NOTE | 2024-06-25 | DI.RAD_ITS ---
Exam(s) XR ELBOW LT COMPLETE EXAM: XR ELBOW LT COMPLETE CLINICAL HISTORY: OSTEOPOROSIS W/O FX,M81.0, PROSTATE CA METASTATIC TO BONE,C61,C79.51. TECHNIQUE: 2D digital imaging was performed. Three views. COMPARISON: No exams were available for comparison FINDINGS: BONES: No acute fracture is present. No bony destructive lesion is seen. Bony fragments noted adjacen t to of both medial and lateral epicondyles. Additional chronic bony fragment seen between the proxi mal radius and ulna. Enthesophyte at triceps insertion on ulna. JOINTS: Degenerative changes at the elbow. Spurring at the radial head and proximal ulna. A joint e ffusion is seen. SOFT TISSUE: Normal. IMPRESSION: Degenerative changes and chronic periarticular bony fragments. DATA REPOSITORY: RADIATION DOSE DELIVERED:
--- NOTE | 2024-06-25 | DI.RAD_ITS ---
Exam(s) XR WRIST RT COMPLETE EXAM: XR WRIST RT COMPLETE CLINICAL HISTORY: OSTEOPOROSIS W/O FX,M81.0,PROSTATE CA METASTATIC TO BONE,C61,C79.51. TECHNIQUE: 2D digital imaging was performed. Three views. COMPARISON: No exams were available for comparison FINDINGS: BONES/joints: No acute fracture is present. There is flattening and fragmentation of the lunate. Th ere is proximal migration of the capitate and hamate. There is also some deformity involving the tri quetrum. There are degenerative changes at the radial carpal joint and scaphoid trapezium trapezoid joints. There is rotation of the scaphoid. A smoothly marginated bony density is noted at the dorsa l aspect of the wrist. SOFT TISSUE: Vascular calcifications. IMPRESSION: Findings consistent with [place] disease. DATA REPOSITORY: RADIATION DOSE DELIVERED:
== END ==
PROVIDERS: PCP Family Medicine; Visit Provider Nurse Practitioner
DX: C61 Malignant neoplasm of prostate (principal); C79.51 Secondary malignant neoplasm of bone; M81.0 Age-related osteoporosis without current pathological fracture; M19.022 Primary osteoarthritis, left elbow; M24.022 Loose body in left elbow
CPT/HCPCS: 73080; 73110

== ENCOUNTER 2024-07-28 02:29 | Outpatient (CLI) | payer MEDICARE, SELFPAY ==
[2024-07-28 09:01] LABS: Abs Immature Grans 0.01 10^3/uL (0.0-0.06); Absolute Basophil Count 0.03 10^3/uL (0.0-0.2); Absolute Eosinophil Count 0.03 10^3/uL (0.0-0.7); Absolute Lymphocyte Count 0.77 10^3/uL (1.2-3.4); Absolute Monocyte Count 0.32 10^3/uL (0.1-0.8); Absolute Neutrophil Count 2.27 10^3/uL (1.2-6.7); Basophils % 0.9 %; Eosinophils % 0.9 %; HCT 40.9 % (40.0-50.0); HGB 13.8 g/dL (13.5-17.5); Immature Grans % 0.3 %; Lymphocytes % 22.4 %; MCHC 33.7 % (32.0-36.0); MCV 98 fL (80-95); MPV 8.2 fL (8.0-11.0); Monocytes % 9.3 %; Neutrophils % 66.2 %; Platelet Count 146 10^3/uL (130-400); RBC 4.18 10^6/uL (4.36-5.78); RDW 12.6 % (11.8-14.1); RDW-SD 45.4 fL; WBC 3.43 10^3/uL (4.4-10.8)
[2024-07-28 10:16] LABS: ALT 32 U/L (16-63); AST 67 U/L (15-37); Albumin 3.7 g/dL (3.4-5.0); Alkaline Phosphatase 96 U/L (46-116); Anion Gap 5.5 mmol/L (3-11); BUN 19 mg/dL (7-18); Bilirubin, Total 0.65 mg/dL (0.2-1.0); CO2 29.5 mmol/L (21.0-32.0); CREATININE 1.1 mg/dL (0.70-1.30); Calcium 9.4 mg/dL (8.5-10.1); Chloride 103 mmol/L (98-107); Estimated GFR 73.12 (mL/min/1.73m2); Glucose 88 mg/dL (74-106); Potassium 4.3 mmol/L (3.5-5.1); Sodium 138 mmol/L (136-145); Total Protein 7.7 g/dL (6.4-8.2)
[2024-07-31 12:49] LABS: Testosterone, Total 18 ng/dL (240-950)
== END 2024-07-28 02:30 | disposition home or self-care (01) ==
LOC: LBO 02:29
PROVIDERS: PCP Family Medicine; Visit Provider Nurse Practitioner
DX: C61 Malignant neoplasm of prostate (principal)
CPT/HCPCS: 36415; 80053; 84153; 84403; 85025

== ENCOUNTER 2024-09-14 02:10 | Outpatient (CLI) | payer MEDICARE, SELFPAY ==
[2024-09-14 12:28] LABS: Abs Immature Grans 0.01 10^3/uL (0.0-0.06); Absolute Basophil Count 0.02 10^3/uL (0.0-0.2); Absolute Eosinophil Count 0.03 10^3/uL (0.0-0.7); Absolute Lymphocyte Count 0.81 10^3/uL (1.2-3.4); Absolute Monocyte Count 0.21 10^3/uL (0.1-0.8); Absolute Neutrophil Count 2.22 10^3/uL (1.2-6.7); Basophils % 0.6 %; Eosinophils % 0.9 %; HCT 37.8 % (40.0-50.0); HGB 12.8 g/dL (13.5-17.5); Immature Grans % 0.3 %; Lymphocytes % 24.5 %; MCH 33.3 pg (27.0-33.0); MCHC 33.9 % (32.0-36.0); MCV 98 fL (80-95); MPV 8.9 fL (8.0-11.0); Monocytes % 6.4 %; Neutrophils % 67.3 %; Platelet Count 146 10^3/uL (130-400); RBC 3.84 10^6/uL (4.36-5.78); RDW 12.8 % (11.8-14.1)
[2024-09-14 13:00] LABS: ALT 22 U/L (16-63); AST 23 U/L (15-37); Albumin 3.4 g/dL (3.4-5.0); Alkaline Phosphatase 82 U/L (46-116); Anion Gap 6.6 mmol/L (3-11); BUN 16 mg/dL (7-18); Bilirubin, Total 0.42 mg/dL (0.2-1.0); CO2 29.4 mmol/L (21.0-32.0); Calcium 9.5 mg/dL (8.5-10.1); Chloride 106 mmol/L (98-107); Estimated GFR 81.98 (mL/min/1.73m2); Glucose 85 mg/dL (74-106); Potassium 4.2 mmol/L (3.5-5.1); Sodium 142 mmol/L (136-145); Total Protein 7.1 g/dL (6.4-8.2)
[2024-09-16 10:38] LABS: PSA, Ultrasensitive 0.35 ng/mL (<= 4.5)
[2024-09-17 16:23] LABS: Testosterone, Total 7.7 ng/dL (240-950)
== END 2024-09-14 02:11 | disposition home or self-care (01) ==
LOC: LBO 02:10
PROVIDERS: PCP Family Medicine; Visit Provider Nurse Practitioner
DX: C61 Malignant neoplasm of prostate (principal); C79.51 Secondary malignant neoplasm of bone
CPT/HCPCS: 36415; 80053; 84153; 84403; 85025

== ENCOUNTER 2024-12-11 01:46 | Outpatient (CLI) | payer MEDICARE, SELFPAY ==
[2024-12-11 11:09] LABS: Abs Immature Grans 0.01 10^3/uL (0.0-0.06); Absolute Basophil Count 0.03 10^3/uL (0.0-0.2); Absolute Eosinophil Count 0.02 10^3/uL (0.0-0.7); Absolute Lymphocyte Count 0.95 10^3/uL (1.2-3.4); Absolute Monocyte Count 0.36 10^3/uL (0.1-0.8); Absolute Neutrophil Count 2.54 10^3/uL (1.2-6.7); Basophils % 0.8 %; Eosinophils % 0.5 %; HCT 38.3 % (40.0-50.0); HGB 13.3 g/dL (13.5-17.5); Immature Grans % 0.3 %; Lymphocytes % 24.3 %; MCH 33.1 pg (27.0-33.0); MCHC 34.7 % (32.0-36.0); MCV 95 fL (80-95); MPV 8.2 fL (8.0-11.0); Monocytes % 9.2 %; Neutrophils % 64.9 %; Platelet Count 163 10^3/uL (130-400); RBC 4.02 10^6/uL (4.36-5.78); RDW 12.3 % (11.8-14.1); RDW-SD 43.1 fL; WBC 3.91 10^3/uL (4.4-10.8)
[2024-12-11 11:36] LABS: ALT 22 U/L (16-63); AST 16 U/L (15-37); Albumin 3.7 g/dL (3.4-5.0); Alkaline Phosphatase 93 U/L (46-116); BUN 17 mg/dL (7-18); Bilirubin, Total 0.48 mg/dL (0.2-1.0); CREATININE 1.1 mg/dL (0.70-1.30); Calcium 9.7 mg/dL (8.5-10.1); Chloride 104 mmol/L (98-107); Estimated GFR 73.12 (mL/min/1.73m2); Glucose 89 mg/dL (74-106); Potassium 4.3 mmol/L (3.5-5.1); Sodium 139 mmol/L (136-145); Total Protein 7.4 g/dL (6.4-8.2)
[2024-12-14 11:34] LABS: PSA, Ultrasensitive 0.07 ng/mL (<= 4.5)
[2024-12-18 15:17] LABS: Testosterone, Total 14 ng/dL (240-950)
== END 2024-12-11 01:47 | disposition home or self-care (01) ==
PROVIDERS: PCP Family Medicine; Visit Provider Nurse Practitioner
DX: C61 Malignant neoplasm of prostate (principal)
CPT/HCPCS: 36415; 80053; 84153; 84403; 85025

== ENCOUNTER 2025-03-15 00:32 | Outpatient (CLI) | payer MEDICARE, SELFPAY ==
[2025-03-15 12:14] LABS: Abs Immature Grans 0.01 10^3/uL (0.0-0.06); Absolute Basophil Count 0.07 10^3/uL (0.0-0.2); Absolute Eosinophil Count 0.35 10^3/uL (0.0-0.7); Absolute Lymphocyte Count 0.88 10^3/uL (1.2-3.4); Absolute Monocyte Count 0.33 10^3/uL (0.1-0.8); Absolute Neutrophil Count 3.65 10^3/uL (1.2-6.7); Basophils % 1.3 %; Eosinophils % 6.6 %; HCT 39.3 % (40.0-50.0); HGB 13.4 g/dL (13.5-17.5); Immature Grans % 0.2 %; Lymphocytes % 16.6 %; MCHC 34.1 % (32.0-36.0); MCV 97 fL (80-95); MPV 8.4 fL (8.0-11.0); Monocytes % 6.2 %; Neutrophils % 69.1 %; Platelet Count 160 10^3/uL (130-400); RBC 4.06 10^6/uL (4.36-5.78); RDW 12.2 % (11.8-14.1); RDW-SD 43.4 fL; WBC 5.29 10^3/uL (4.4-10.8)
[2025-03-15 12:37] LABS: ALT 19 U/L (16-63); AST 17 U/L (15-37); Albumin 3.8 g/dL (3.4-5.0); Alkaline Phosphatase 114 U/L (46-116); Anion Gap 8.6 mmol/L (3-11); BUN 22 mg/dL (7-18); Bilirubin, Total 0.3 mg/dL (0.2-1.0); CO2 29.4 mmol/L (21.0-32.0); CREATININE 1.1 mg/dL (0.70-1.30); Calcium 9.6 mg/dL (8.5-10.1); Chloride 105 mmol/L (98-107); Estimated GFR 72.67 (mL/min/1.73m2); Glucose 93 mg/dL (74-106); Potassium 4.4 mmol/L (3.5-5.1); Sodium 143 mmol/L (136-145); Total Protein 7.4 g/dL (6.4-8.2)
[2025-03-17 10:36] LABS: PSA, Ultrasensitive 0.03 ng/mL (<= 4.5)
[2025-03-21 18:20] LABS: Testosterone, Total 12 ng/dL (240-950)
== END 2025-03-15 00:33 | disposition home or self-care (01) ==
LOC: LBO 00:32
PROVIDERS: PCP Family Medicine; Visit Provider Nurse Practitioner
DX: C61 Malignant neoplasm of prostate (principal); C79.51 Secondary malignant neoplasm of bone
CPT/HCPCS: 36415; 80053; 84153; 84403; 85025

== ENCOUNTER 2025-06-14 03:57 | Outpatient (CLI) | payer MEDICARE, SELFPAY ==
[2025-06-14 15:08] LABS: Abs Immature Grans 0.01 10^3/uL (0.0-0.06); HCT 38.1 % (40.0-50.0); HGB 12.8 g/dL (13.5-17.5); Immature Grans % 0.3 %; MCH 32.7 pg (27.0-33.0); MCHC 33.6 % (32.0-36.0); MCV 97 fL (80-95); MPV 8.4 fL (8.0-11.0); Platelet Count 145 10^3/uL (130-400); RBC 3.91 10^6/uL (4.36-5.78); RDW 12.6 % (11.8-14.1); RDW-SD 44.6 fL; WBC 3.94 10^3/uL (4.4-10.8)
[2025-06-14 15:36] LABS: ALT 20 U/L (16-63); AST 14 U/L (15-37); Albumin 3.6 g/dL (3.4-5.0); Alkaline Phosphatase 130 U/L (46-116); Anion Gap 6.0 mmol/L (3-11); BUN 22 mg/dL (7-18); Bilirubin, Total 0.4 mg/dL (0.2-1.0); CO2 30.0 mmol/L (21.0-32.0); Calcium 9.1 mg/dL (8.5-10.1); Chloride 106 mmol/L (98-107); Estimated GFR 95.80 (mL/min/1.73m2); Glucose 109 mg/dL (74-106); Potassium 4.1 mmol/L (3.5-5.1); Sodium 142 mmol/L (136-145); Total Protein 7.2 g/dL (6.4-8.2)
== END 2025-06-14 03:58 | disposition home or self-care (01) ==
LOC: LBO 03:58
PROVIDERS: PCP Family Medicine; Visit Provider Nurse Practitioner
DX: C61 Malignant neoplasm of prostate (principal); C79.51 Secondary malignant neoplasm of bone
CPT/HCPCS: 36415; 80053; 84153; 84403; 85025

== ENCOUNTER 2025-08-23 00:56 | Inpatient (IN) | payer MEDICARE, SELFPAY ==
[2025-08-23] VITALS (139 sets, daily range): BP systolic 105–231; BP diastolic 58–90; PULSE 50–89; RESP 10–27; TEMP 36.2–36.8; O2SAT 92–99
--- NOTE | 2025-08-23 00:45 | RT.EKG_ITS ---
APPROVED REPORT Exam: Resting ECG Reason for Exam: afib Patient Location: E HR:61 bpm ECG Measurements Heart Rate 61 AXIS HI 173 P 73 QRSd 57 QRS 36 QT 426 T 50 QTc 432 Conclusion Sinus rhythm...normal P axis, V-rate 60- 99 Ventricular premature complex...V complex w/ short R-R interval SR, appropriate intervals, no ST segment or T wave abnormalities to suggest occlusive [place]
--- NOTE | 2025-08-23 01:00 | DI.CT_ITS ---
Exam(s) CT THORAX ABD/PEL CTA EXAM: CT THORAX ABD/PEL CTA CLINICAL HISTORY: Chest pain concern for dissection. TECHNIQUE: Imaging Protocol: Axial CT angiography was performed with multi- slice acquisition and multi-planar and/or 3D reconstructions. Lung Computer Aided Detection (CAD) was utilized. CONTRAST MATERIAL: Intravenous: Omnipaque 350 contrast volume:85 mL Oral: No COMPARISON: CT CT CHEST/ABD/PEL W from 04/19/[address] CHEST PE ABD PELVIS W from 03/20/[address] CHEST/ABD/PEL W from 08/07/[address] CHEST/ABD/PEL W from 06/10/2024 FINDINGS: CHEST: Tracheobronchial tree: Patent where visualized. There is no evidence of bronchiectasis. Pulmonary parenchyma: No consolidation or dominant measurable mass. There is scarring and/or atelectasis in the lung bases. Pulmonary Arteries: No evidence of filling defect to suggest pulmonary emboli. Mediastinum and Zoë: No dominant adenopathy or fluid collection. The esophagus is unremarkable. Visualized thyroid: Unremarkable. Pleura: No effusion or pneumothorax. Heart: The heart is not dilated. No coronary artery calcifications are seen. No pericardial effusion. Aorta: Thoracic aorta non-dilated. There is mild atherosclerotic calcification present. There is no evidence of thoracic aortic dissection. Soft Tissues: Unremarkable. Bones: Within normal limits for the patient's age. ABDOMEN AND PELVIS: Abdomen: Celiac axis/mesenteric arteries: No evidence of occlusion or significant stenosis. Renal Arteries: No evidence of occlusion or significant stenosis. There is minimal atherosclerosis at the origin of the right renal artery but no significant stenosis is seen. Aorta: No evidence of occlusion or significant stenosis. No aneurysm or dissection. Mild atherosclerotic calcification is seen. Pelvis: Iliac Arteries: There is mild atherosclerotic calcifications seen in the iliac arteries, particularly the common iliac arteries and the internal iliac arteries bilaterally but no significant stenosis is seen. Common Femoral Arteries: No evidence of occlusion or significant stenosis. ABDOMEN: Liver: There is decreased attenuation of the liver suggesting fatty infiltration. No measurable mass. Portal, superior mesenteric and splenic veins: Unremarkable. Gallbladder and Biliary Tract: No radiodense calculus or dilation. Pancreas: Normal density, no abnormal calcifications or inflammatory process. Spleen: Normal. Adrenals: No masses seen. Kidneys: Normal size, contour and axis. No radiodense stones or obstructive uropathy. No masses seen. Bowel: No obstruction or bowel wall thickening. Appendix is unremarkable. Peritoneal Cavity: No ascites, collection or mesenteric inflammatory response. No free air. Lymph Nodes: Within normal limits. Bones: Within normal limits for the patient's age. There are stable sclerotic foci in the bones. Soft Tissues: Unremarkable. PELVIS: Bladder: Symmetric distention, no gross wall thickening. Reproductive Organs: The prostate gland is absent. Lymph Nodes: Within normal limits. Bones: Within normal limits for the patient's age. IMPRESSION: 1. There is no acute abdominal or pelvic process. 2. There is no acute pulmonary process. 3. No evidence of a pulmonary embolism, thoracic aortic dissection or aneurysm. 4. No evidence of an abdominal aortic aneurysm or dissection. 5. The preliminary [facility] report was reviewed. RADIATION DOSE DELIVERED: 1,183.12mGy.cm Total DLP DATA REPOSITORY: All CT scans at this facility are submitted to the National Radiology Data Registry (NRDR) Dose Index Registry (DIR) with the [employer] (ACR). RADIATION OPTIMIZATION: All CT scans at this facility use at least one of these dose optimization techniques: automated exposure control; mA and/or kV adjustment per patient size (includes targeted exams where dose is matched to clinical indication); or iterative reconstruction.
[2025-08-23] MEDS: nitroGLYcerin 0.4 MG TAB SL ×2 (01:11→01:39)
[2025-08-23 01:15] LABS: Abs Immature Grans 0.02 10^3/uL (0.0-0.06); HCT 37.9 % (40.0-50.0); HGB 12.9 g/dL (13.5-17.5); Immature Grans % 0.4 %; MCH 32.7 pg (27.0-33.0); MCHC 34.0 % (32.0-36.0); MCV 96 fL (80-95); MPV 8.2 fL (8.0-11.0); Platelet Count 152 10^3/uL (130-400); RBC 3.94 10^6/uL (4.36-5.78); RDW 12.5 % (11.8-14.1); RDW-SD 43.9 fL; WBC 5.00 10^3/uL (4.4-10.8)
[2025-08-23] MEDS: Omnipaque 350 MG/ML 100 ML BTL IJ (01:18)
[2025-08-23] MEDS: Normal Saline - Diluent 50 ML VIAL IJ (01:19)
[2025-08-23] MEDS: Normal Saline Flush 10 ML SYR IVP ×3 (01:19→19:55)
[2025-08-23 01:27] LABS: INR 1.0 (0.9-1.1); PTT Activated 26.5 sec (20.6-30.2); Prothrombin Time 9.9 sec (9.1-11.1)
--- NOTE | 2025-08-23 01:29 | NUR.NOTE ---
Pt arrived with chest pain and shortness of breath, pain initially 8/10, decreased to 3/10 after 1 NTG, pt stated he is pain free 0/0 after 2nd NTG, FPJ
--- NOTE | 2025-08-23 01:30 | RT.EKG_ITS ---
APPROVED REPORT Exam: Resting ECG Reason for Exam: chest pain Patient Location: E HR:63 bpm ECG Measurements Heart Rate 63 AXIS CA 184 P 62 QRSd 68 QRS 16 QT 422 T 27 QTc 434 Conclusion Sinus rhythm...normal P axis, V-rate 60- 99 SR, appropriate intervals, no ST segment or T wave abnormalities to suggest occlusive [place]
[2025-08-23 01:36] LABS: ALT 22 U/L (16-63); AST 14 U/L (15-37); Albumin 3.9 g/dL (3.4-5.0); Alkaline Phosphatase 136 U/L (46-116); Anion Gap 8.0 mmol/L (3-11); BUN 18 mg/dL (7-18); Bilirubin, Total 0.4 mg/dL (0.2-1.0); CO2 32.0 mmol/L (21.0-32.0); Calcium 9.8 mg/dL (8.5-10.1); Chloride 101 mmol/L (98-107); Estimated GFR 81.47 (mL/min/1.73m2); Glucose 130 mg/dL (74-106); Lipase 30 U/L (<78); Magnesium 2.0 mg/dL (1.8-2.4); NT-proBNP 239 pg/mL (<300); Potassium 4.3 mmol/L (3.5-5.1); Sodium 141 mmol/L (136-145); Total Protein 7.5 g/dL (6.4-8.2); Troponin I 12 ng/L (<or=76)
--- NOTE | 2025-08-23 01:46 | ED.GENADUL_ITS ---
Discharge Plan Disposition Patient Disposition: Admit to [facility] Condition: Critical Discharge Details Clinical Impression: Hypertensive emergency without congestive heart failure Primary Care Provider: Royce Bishop ED Provider: Helga Romero Home Meds and New Rx's Prescriptions: No Action calcium carbonate-vitamin D3 [Calcium 600 with Vitamin D3] 600 mg-12.5 mcg (500 unit) capsule 2 cap PO DAILY Xtandi 40 mg capsule 160 mg PO DAILY nitroglycerin 0.4 mg tablet, sublingual 0.4 mg sublingual Q5-15M PRN (Reason: chest pain) Qty: 25 0RF Rx Instructions: take as needed q 5 mins for c/p until gone if take 3 pills and pain persists, call lisinopril 5 mg tablet 5 mg PO DAILY Qty: 90 3RF Rx Instructions: Dose decrease on 06/03/2024. -hb dose reduce albuterol sulfate [Proventil HFA] 90 mcg/actuation HFA aerosol inhaler 2 puff inhalation Q6H PRN (Reason: shortness of breath or wheezing) Qty: 8.5 8RF budesonide-formoterol [Symbicort] 80-4.5 mcg/actuation HFA aerosol inhaler 2 puff IH BID Qty: 30.6 4RF pravastatin 40 mg tablet 40 mg PO HS Qty: 90 3RF HPI General Mode of arrival: ambulatory . Date/Time Provider Initiated Documentation: 08/23/25 00:57 . Limitations to Documentation: no limitations . Information obtained by: patient and old records reviewed . HPI Narrative: 70yo M with hx HTN, HLD, metastatic prostate cancer, asthma, presenting for 24 hours of intermittent chest pain and shortness of breath acutely worse one hour prior to arrival and improved transiently by home nitrogylcerin x 1. Pain and shortness of breath has been present on and off all day, seems maybe to be worse with exertion but also occurs at rest. About 90 minutes prior to arrival took nitro for pain which seemed to help a little, but then the pain got much worse. Pain is left sided, sharp, and radiates to his back between his shoulder blades. Has signficant shorntess of breath with this. Has had similar symptoms in the past (he attributes to episodes of afib though he does not carry a formal diagnosis of this) but never this bad. Pain is currently 8/10. Otherwise in his usual state of health with no fevers, chills, rash, nausea, vomiting, abdominal pain, dysuria, hematuria, lightheadedness, syncope, numbness, weakness, or other concerns. Related Data Home Medications ?Medication ?Instructions ?Recorded ?Confirmed calcium 600 mg (as 2 cap PO DAILY 02/09/22 10/05/12 carbonate)-vitamin D3 12.5 mcg (500 unit) capsule (Calcium with Vit D3) albuterol sulfate 90 mcg/actuation 2 puff inhalation Q 6H PRN 06/29/24 08/23/25 aerosol inhaler (Proventil HFA) shortness of breath or wheezing #8.5 grams budesonide-formoterol HFA 80 2 puff inhalation BID #30 .6 grams 10/07/24 08/23/25 mcg-4.5 mcg/actuation aerosol inhaler (Symbicort) enzalutamide 40 mg capsule (Xtandi) 160 mg PO DAILY 08/23/25 lisinopril 5 mg tablet 5 mg PO DAILY #90 tabs 03/1608/23/25 nitroglycerin 0.4 mg sublingual 0.4 mg sublingual Q5-1 5M PRN chest 03/16/25 08/23/25 tablet pain #25 tabs pravastatin 40 mg tablet 40 mg PO HS #90 tabs 5 08/23/25 Previous Rx's ?Medication ?Instructions ?Recorded albuterol sulfate 90 mcg/actuation 2 puff inhalation Q 6H PRN 06/29/24 aerosol inhaler (Proventil HFA) shortness of breath or wheezing #8.5 grams budesonide-formoterol HFA 80 2 puff inhalation BID #30 .6 grams 10/07/24 mcg-4.5 mcg/actuation aerosol inhaler (Symbicort) lisinopril 5 mg tablet 5 mg PO DAILY #90 tabs 03/16 nitroglycerin 0.4 mg sublingual 0.4 mg sublingual Q5-1 5M PRN chest 03/16/25 tablet pain #25 tabs pravastatin 40 mg tablet 40 mg PO HS #90 tabs 5 Allergies Allergy/AdvReac Type Severity Reaction Status Date / Time Penicillins Allergy Mild Skin Rash Verified 08/23/25 02:55 oxycodone Allergy WHEEZING Verified 08/23/25 02:55 atorvastatin AdvReac Intermediate MYALGIAS Verified 08/23/25 02:55 General Stated Complaint: Chest Pain LUCILA: 2 Review of Systems Narrative: see HPI Exam Narrative Exam Narrative: General: Alert, in no significant distress. Head: Normocephalic, atraumatic Neck: Trachea midline, ?Neck supple. ENT: ?MMM.? Cardiac: ?RRR, no murmurs appreciated. Equal radial pulses. Resp: No respiratory distress. CTAB. Abd: ?Soft, non-distended, nontender : ?No suprapubic tenderness. No CVA tenderness. Extremities: ?No deformities.? No peripheral edema. Neurologic: GCS 15. ? Moves all extremities freely against gravity Course Vital Signs Vital signs: Vital Signs Temperature 36.2 C L 08/23/25 00:59 Pulse 57 L 08/23/25 00:59 Respiratory Rate 16 08/23/25 00:59 Blood Pressure 231/85 H 08/23/25 00:59 Pulse Oximetry 98 08/23/25 00:59 Temperature 36.2 C L 08/23/25 00:59 Temperature Source Oral 08/23/25 00:59 Pulse 60 08/23/25 01:25 Pulse 64 08/23/25 01:21 Respiratory Rate 21 08/23/25 01:21 Respiratory Effort Normal, Non-Labored 08/23/25 01:04 Respiratory Depth Normal 08/23/25 01:04 Respiratory Pattern Normal 08/23/25 01:04 Blood Pressure 158/85 H 08/23/25 01:25 Blood Pressure Mean 108 08/23/25 01:25 Blood Pressure Position Supine 08/23/25 00:59 Pulse Oximetry 94 08/23/25 01:21 Oxygen Delivery Method Room Air 08/23/25 00:59 Oxygen Flow Rate 0 08/23/25 00:59 Pain Level 1 08/23/25 01:39 Lab/Test Results Lab/Test Results: Laboratory Tests Range/Units 08/23/25 01:07 WBC (4.4-10.8) 10^3/uL 5.00 RBC (4.36-5.78) 10^6/uL 3.94 L Hgb (13.5-17.5) g/dL 12.9 L Hct (40.0-50.0) % 37.9 L MCV (80-95) fL 96 H MCH (27.0-33.0) pg 32.7 MCHC (32.0-36.0) % 34.0 RDW (11.8-14.1) % 12.5 Plt Count (130-400) 10^3/uL 152 MPV (8.0-11.0) fL 8.2 Immature Gran % % 0.4 Neutrophils % % 65.6 Lymphocytes % % 18.2 Monocytes % % 12.2 Eosinophils % % 3.0 Basophils % % 0.6 Nucleated RBC % (0.0-0.3) % 0.0 Absolute Neutrophils (1.2-6.7) 10^3/uL 3.28 Absolute Lymphocytes (1.2-3.4) 10^3/uL 0.91 L Absolute Monocytes (0.1-0.8) 10^3/uL 0.61 Absolute Eosinophils (0.0-0.7) 10^3/uL 0.15 Absolute Basophils (0.0-0.2) 10^3/uL 0.03 PT (9.1-11.1) sec 9.9 INR (0.9-1.1) 1.0 APTT (20.6-30.2) sec 26.5 Sodium (136-145) mmol/L 141 Potassium (3.5-5.1) mmol/L 4.3 Chloride (98-107) mmol/L 101 Carbon Dioxide (21.0-32.0) mmol/L 32.0 Anion Gap (3-11) mmol/L 8.0 BUN (7-18) mg/dL 18 Creatinine (0.70-1.30) mg/dL 1.0 Est GFR (CKD-EPI 2020) (mL/min/1.73m2) 81.47 Glucose (74-106) mg/dL 130 H Calcium (8.5-10.1) mg/dL 9.8 Magnesium (1.8-2.4) mg/dL 2.0 Total Bilirubin (0.2-1.0) mg/dL 0.4 AST (15-37) U/L 14 L ALT (16-63) U/L 22 Alkaline Phosphatase (46-116) U/L 136 H Troponin I (<or=76) ng/L 12 NT-Pro-B Natriuret Pep (<300) pg/mL 239 Total Protein (6.4-8.2) g/dL 7.5 Albumin (3.4-5.0) g/dL 3.9 Lipase (<78) U/L 30 Medical Decision Making 70yo M with hx HTN, HLD, metastatic prostate cancer, asthma, presenting for 24 hours of intermittent chest pain and shortness of breath acutely worse one hour prior to arrival and improved transiently by home nitrogylcerin x 1. Hypertensive on arrival 231/85, vital signs otherwise reassuring. Non-toxic on exam, not in significant distress, lungs CTAB. C/o 810 left sided CP radiating into his left back/scapula and associated shortness of breath. EKG NSR, appropriate intervals, no ST segment or T wave abnormalities to suggest occlusive [place], no concerning changes compared to prior April 2023. Most immediately concerning for ACS, aortic dissection, hypertensive emergency, unstable angina, possibly PE. Will hold off on aspirin until after CTA r/o dissection. Initial resus: -Given SL nitro with reduction in pain from 8 to 3, 2nd dose with reduction in pain from 3 to 0. Shortness of breath also resolved with this. BP improved to systolic ~150. -Limited bedside echo with no large effusion, RV dilation, or large focal wall motion abnormality. -Taken emergently to CT; no obvious aortic dissection or large saddle pulmonary embolism on my view. -Upon return to room CP returning, 2-3/10. Given additional SL nitro and nitro gtt hung. -Repeat EKG when CP free with no significant changes ED course -Labs reviewed as below, CBC with mild anemia Hg 12.9 (chronic on [facility] record review), CMP with no actionable abnormalities, Mg normal, coags normal, BNP not suggestive of heart failure, intiial troponin normal (12). -Cardiology consult from Aug 2023 reviewed, atypical chest pain thought to be unlikely coronary in etiology and had reassuring excercise stress test in April of 2023. -1 hour troponin reassuring/unchanged -CTA read with no acute findings; will give 325 of ASA though with stable troponin seems most likely hypertensive emergency rather than ACS -Requiring nitro gtt @ 30 to remain chest pain free, SBP ~150-160 with this. [place] [facility]; no emergent ischemic evaluation warranted, agree with treating as hypertensive crisis, could benefit from echo and stress test on non-emergent basis, no indication for transfer. Discussed with [facility] hospitalist Dr. Powers; pt accepted to medicine service. Awaiting orders and transfer to the unit. Medical Records Medical records reviewed: Yes I reviewed the patient's medical records. Imaging Data Radiologic Study: Imaging: CT Scan Radiologist's impression: IMPRESSION: No evidence of pulmonary emboli, aneurysm or dissection. Non- specific fluid levels are seen in the colon. Correlate clinically to exclude the possibility of diarrheal illness. Enlarged, fatty liver. Lab Data Lab results reviewed: Yes I reviewed the patient's lab results. Labs: Laboratory Tests Range/Units 08/23/25 01:07 WBC (4.4-10.8) 10^3/uL 5.00 RBC (4.36-5.78) 10^6/uL 3.94 L Hgb (13.5-17.5) g/dL 12.9 L Hct (40.0-50.0) % 37.9 L MCV (80-95) fL 96 H MCH (27.0-33.0) pg 32.7 MCHC (32.0-36.0) % 34.0 RDW (11.8-14.1) % 12.5 Plt Count (130-400) 10^3/uL 152 MPV (8.0-11.0) fL 8.2 Immature Gran % % 0.4 Neutrophils % % 65.6 Lymphocytes % % 18.2 Monocytes % % 12.2 Eosinophils % % 3.0 Basophils % % 0.6 Nucleated RBC % (0.0-0.3) % 0.0 Absolute Neutrophils (1.2-6.7) 10^3/uL 3.28 Absolute Lymphocytes (1.2-3.4) 10^3/uL 0.91 L Absolute Monocytes (0.1-0.8) 10^3/uL 0.61 Absolute Eosinophils (0.0-0.7) 10^3/uL 0.15 Absolute Basophils (0.0-0.2) 10^3/uL 0.03 PT (9.1-11.1) sec 9.9 INR (0.9-1.1) 1.0 APTT (20.6-30.2) sec 26.5 Sodium (136-145) mmol/L 141 Potassium (3.5-5.1) mmol/L 4.3 Chloride (98-107) mmol/L 101 Carbon Dioxide (21.0-32.0) mmol/L 32.0 Anion Gap (3-11) mmol/L 8.0 BUN (7-18) mg/dL 18 Creatinine (0.70-1.30) mg/dL 1.0 Est GFR (CKD-EPI 2020) (mL/min/1.73m2) 81.47 Glucose (74-106) mg/dL 130 H Calcium (8.5-10.1) mg/dL 9.8 Magnesium (1.8-2.4) mg/dL 2.0 Total Bilirubin (0.2-1.0) mg/dL 0.4 AST (15-37) U/L 14 L ALT (16-63) U/L 22 Alkaline Phosphatase (46-116) U/L 136 H Troponin I (<or=76) ng/L 12 NT-Pro-B Natriuret Pep (<300) pg/mL 239 Total Protein (6.4-8.2) g/dL 7.5 Albumin (3.4-5.0) g/dL 3.9 Lipase (<78) U/L 30 Critical Care Time Critical Care Time Critical Care Time: Yes Total Critical Care Time: 43 Attestation: Due to a high probability of clinically significant, life threatening deterioration, the patient required my highest level of preparedness to intervene emergently and I personally spent this critical care time directly and personally managing the patient. This critical care time included obtaining a history; examining the patient; pulse oximetry; ordering and review of studies; arranging urgent treatment with development of a management plan; evaluation of patient's response to treatment; frequent reassessment; and, discussions with other providers. This critical care time was performed to assess and manage the high probability of imminent, life-threatening deterioration that could result in multi-organ failure. It was exclusive of separately billable procedures and treating other patients PFSH All Active Problems (Updated 08/23/25 @ 04:46 by Helga Romero MD) Hypertensive emergency without congestive heart failure (Acute) Diabetes mellitus (Chronic) Obesity (Chronic) Chest pain (Chronic) COVID (Chronic) Palliative care patient (Acute) POLST (Physician Orders for Life-Sustaining Treatment) (Chronic) Completed 01/20/2021 with Kaur Hui NP. DNR/DNI. Allergic rhinitis (Chronic) BEE (nonalcoholic steatohepatitis) (Acute) Neutropenia, febrile (Acute) a. Probably at the janeth from recent chemotherapy for prostate cancer. b. No real physical symptoms other than a fever which has since abated. c. On IV Levaquin. Medical History PAD (peripheral artery disease) Moderate persistent asthma 2015 Moderate obstruction on PFT 02/2022-moderate obstruction-significant reversibility on PFT DNI (do not intubate) DNR (do not resuscitate) Hyperlipidemia Essential hypertension (10/20/13) Prostate cancer a. High grade. b. Negative bone scan 03/25/14. c. Negative CT of the abomen and pelvis 03/25/14. d. On chemotherapy and followed by Dr. Roa. e. recurrence 2017 status post radiation therapy f. 02/2022 relatively recent bony recurrence-metastasis of especially pelvis. Followed by oncology at [facility] at [facility], on hormonal therapy and doing well Surgical History BACK SURGERY (~03/1994) Family History Mother , 60's Diabetes Essential hypertension Heart disease CHF Stroke Asthma Father , 80's Diabetes Essential hypertension Sister Diabetes Essential hypertension Heart disease Hyperlipidemia Brother Essential hypertension Heart disease Grandfather Neoplasm Grandfather Essential hypertension Heart disease Grandmother Essential hypertension Stroke Asthma Grandmother Essential hypertension Stroke Asthma Brother Essential hypertension Heart disease Social History Smoking/Tobacco Use Status: Never Second Hand Exposure: Yes Smoking risk assessment performed?: Yes Alcohol Intake: current Alcohol type: beer and hard liquor Drug use: Never Substance use type: does not use Household members: none Housing: house Communication Needs: None Do you need help understanding health information?: Rarely 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 Pets and animals: Yes Pets and animals: dog(s) and horse(s) Sexually active: No Current gender identity: male What is your relationship status?: never How often do you talk on the phone with friends or family?: three or more times per week How often do you get together with friends or relatives?: decline to answer How often do you attend religious or rastafari services?: decline to answer Do you belong to any clubs or organized social groups?: no Panel score (0-1 are the most socially isolated patients): 1 What type of physical activity do you participate in: walking Duration: 15-30 minutes/day Frequency: 5-6 times per week Nelly/Buddhism: No preference Special nelly needs: No Seatbelt use: always Drive intox or ride w/intox bung driver: No Do you feel safe at home: Yes Do you feel safe in your relationship?: Yes
[2025-08-23] MEDS: nitroGLYcerin in D5W 50 MG/250 ML BTL IV (01:55)
[2025-08-23 02:22] LABS: Troponin I 11 ng/L (<or=76)
--- NOTE | 2025-08-23 02:49 | DI.VRAD_ITS ---
PROCEDURE INFORMATION: Exam: CTA Chest With Contrast CTA Abdomen and Pelvis With Contrast Exam date and time: 08/23/2025 1:15 AM Age: 70 years old Clinical indication: Abdominal pain; Generalized; Prior surgery; Surgery date: 6+ months; Surgery type: Back surgery; Chest pain, concern for dissection; Additional info: PT in treatment for prostate CA TECHNIQUE: Imaging protocol: Computed tomographic angiography of the chest with contrast. Exam focused on the arteries. Computed tomographic angiography of the abdomen and pelvis with contrast. Exam focused on the arteries. 3D rendering (Not supervised by radiologist): MIP and/or 3D reconstructed images were created by the technologist. Radiation optimization: All CT scans at this facility use at least one of these dose optimization techniques: automated exposure control; mA and/or kV adjustment per patient size (includes targeted exams where dose is matched to clinical indication); or iterative reconstruction. Contrast material: OMNIPAQUE 350; Contrast volume: 85 ml; Contrast route: INTRAVENOUS (IV); COMPARISON: CT CHEST PE ABD PELVIS W 03/20/2023 2:04 PM FINDINGS: VASCULATURE: Pulmonary arteries: Normal. No pulmonary emboli. Aorta: Mild atherosclerotic disease. No aortic aneurysm or dissection. Celiac and mesenteric arteries: No occlusion or significant stenosis. Renal arteries: 2 right renal arteries. No occlusion or significant stenosis. Right iliac arteries: No occlusion or significant stenosis. Left iliac arteries: No occlusion or significant stenosis. CHEST: Trachea: Major airways are patent. Lungs: Subsegmental atelectasis at the lung bases. Pleural spaces: Unremarkable. No pneumothorax. No pleural effusion. Heart: Unremarkable. No cardiomegaly. No pericardial effusion. ABDOMEN AND PELVIS: Liver: Enlarged, fatty liver. Gallbladder and biliary ducts: Unremarkable. No calcified stones. No ductal dilation. Pancreas: Unremarkable. No mass. No ductal dilation. Spleen: Unremarkable. No splenomegaly. Adrenal glands: Unremarkable. No mass. Kidneys and ureters: Kidneys enhance symmetrically. No stones or hydronephrosis. Stomach and bowel: Non-specific fluid levels are seen in the colon. Stomach is unremarkable. Normal caliber small bowel. Appendix: Appendix is normal. Intraperitoneal space: Unremarkable. No free air. No significant fluid collection. Urinary bladder: Unremarkable. No mass. Reproductive: Prostate is not visualized, suspect surgically absent. Lymph nodes: Unremarkable. No enlarged lymph nodes. Bones/joints: Degenerative changes in the spine. No acute fracture. No suspicious osseous lesions. Soft tissues: Unremarkable. IMPRESSION: No evidence of pulmonary emboli, aneurysm or dissection. Non-specific fluid levels are seen in the colon. Correlate clinically to exclude the possibility of diarrheal illness. Enlarged, fatty liver. Dictated and Authenticated by: Helga Churchill MD. Orderin Heather Partida MD
[2025-08-23] MEDS: Aspirin 81 MG CHEW 324 MG CH (02:56)
--- NOTE | 2025-08-23 03:49 | NUR.NOTE ---
I spoke with Darlyn in Diagnostic Imaging and requested that images be pushed from [facility] Diagnostic Imaging to [facility] per Dr. Romero's request. Also EKG's from today and April of 2023 have been faxed to the [facility] Transfer Center.
[2025-08-23 04:30] LABS: Troponin I 11 ng/L (<or=76)
--- NOTE | 2025-08-23 04:58 | W.PM.HP.N ---
Date of service: 08/23/25 Time of Service: 04:58 Assessment and Plan Assessment and plan (1) Hypertensive emergency without congestive heart failure: Status: Acute Assessment and plan: Patient is currently on a nitro drip and the plan will be to and started on either scheduled IV or oral medications. Currently is only taking lisinopril 5 mg so there is quite a room for treatment. It is mitigated by the fact that he is bradycardic at this point do not (2) Chest pain: Status: Chronic Assessment and plan: Most likely demand ischemia has improved with nitro. No EKG or laboratory evidence of ACS. (3) POLST (Physician Orders for Life-Sustaining Treatment): Status: Chronic Assessment and plan: DNR/DNI status has been verified with patient (4) Diabetes mellitus: Status: Chronic Assessment and plan: Patient is basically on diet and exercise so we will not check glucometers unless his morning labs are indicative of significant hyperglycemia (5) Hyperlipidemia: Assessment and plan: Continue with his statin. Pravastatin 40 mg daily (6) Prostate cancer: Assessment and plan: Patient is on Xtandi which according to [facility] his side effect profile can be chest pain and hypertension. Consider discussing with his oncologist who is here in town later this morning. (7) Moderate persistent asthma: Assessment and plan: Continue with his albuterol and Symbicort. Patient will be on Lovenox for DVT prophylaxis History of Present Illness History of Present Illness Chief Complaint: chest pain Narrative: This is a 70-year-old gentleman who presents to the ED with approximately 36 hours of intermittent chest and back pain. Patient states the pain is not radiating to his arm or jaw necessarily but it is it is substernal and does radiate to his back. Patient states that he did get a stress text approximately 3 years ago and it was reported as negative although it is not available. Patient was noted to have significant hypotension on admission and was eventually put on a nitro drip with good effect. Upon my examination the patient is stating that his chest pain is essentially resolved. The patient states that he has been taking his medication as prescribed. He does endorse that in the past he has had similar symptoms which was attributed to his medication Enzalutamide which he takes for metastatic prostate cancer. On further questioning, patient states that the metastasis was local and he has had periods when he was able to get off this medication. In reviewing his clinical data, his electrolytes are essentially within normal limits. He does have a mildly elevated MCV at 96. CT chest abdomen and pelvis were benign. Troponins x 3 were also negative. Review of Systems All systems reviewed & are unremarkable except as noted in HPI and below PFSH All Active Problems (Updated 08/23/25 @ 04:46 by Helga Romero MD) Hypertensive emergency without congestive heart failure (Acute) Diabetes mellitus (Chronic) Obesity (Chronic) Chest pain (Chronic) COVID (Chronic) Palliative care patient (Acute) POLST (Physician Orders for Life-Sustaining Treatment) (Chronic) Completed 01/20/2021 with Kaur Hui NP. DNR/DNI. Allergic rhinitis (Chronic) BEE (nonalcoholic steatohepatitis) (Acute) Neutropenia, febrile (Acute) a. Probably at the janeth from recent chemotherapy for prostate cancer. b. No real physical symptoms other than a fever which has since abated. c. On IV Levaquin. Medical History PAD (peripheral artery disease) Moderate persistent asthma 2016 Moderate obstruction on PFT 02/2022-moderate obstruction-significant reversibility on PFT DNI (do not intubate) DNR (do not resuscitate) Hyperlipidemia Essential hypertension (10/20/13) Prostate cancer a. High grade. b. Negative bone scan 03/25/14. c. Negative CT of the abomen and pelvis 03/25/14. d. On chemotherapy and followed by Dr. Roa. e. recurrence 2017 status post radiation therapy f. 02/2022 relatively recent bony recurrence-metastasis of especially pelvis. Followed by oncology at [facility], on hormonal therapy and doing well Surgical History BACK SURGERY (~03/1994) Family History Mother , 60's Diabetes Essential hypertension Heart disease CHF Stroke Asthma Father , 80's Diabetes Essential hypertension Sister Diabetes Essential hypertension Heart disease Hyperlipidemia Brother Essential hypertension Heart disease Grandfather Neoplasm Grandfather Essential hypertension Heart disease Grandmother Essential hypertension Stroke Asthma Grandmother Essential hypertension Stroke Asthma Brother Essential hypertension Heart disease Social History Smoking/Tobacco Use Status: Never Second Hand Exposure: Yes Smoking risk assessment performed?: Yes Alcohol Intake: current Alcohol type: beer and hard liquor Drug use: Never Substance use type: does not use Household members: none Housing: house Communication Needs: None Do you need help understanding health information?: Rarely current occupation: [employer] Pets and animals: Yes Pets and animals: dog(s) and horse(s) Sexually active: No Current gender identity: male What is your relationship status?: never How often do you talk on the phone with friends or family?: three or more times per week How often do you get together with friends or relatives?: decline to answer How often do you attend jewish or scientologist services?: decline to answer Do you belong to any clubs or organized social groups?: no Panel score (0-1 are the most socially isolated patients): 1 What type of physical activity do you participate in: walking Duration: 15-30 minutes/day Frequency: 5-6 times per week Nelly/Denominational: No preference Special nelly needs: No Seatbelt use: always Drive intox or ride w/intox commercial front load driver: No Do you feel safe at home: Yes Do you feel safe in your relationship?: Yes Meds Allergies and Home Medications Allergies Allergy/AdvReac Type Severity Reaction Status Date / Time Penicillins Allergy Mild Skin Rash Verified 08/23/25 02:55 oxycodone Allergy WHEEZING Verified 08/23/25 02:55 atorvastatin AdvReac Intermediate MYALGIAS Verified 08/23/25 02:55 Home Medications ?Medication ?Instructions ?Recorded ?Confirmed ?Type calcium 600 mg (as 2 cap PO DAILY 02/09/22 08/23/25 History carbonate)-vitamin D3 12.5 mcg (500 unit) capsule (Calcium with Vit D3) albuterol sulfate 90 mcg/actuation 2 puff inhalation Q6H PRN 06/29/24 08/23/25 Rx aerosol inhaler (Proventil HFA) shortness of breath or wheezing #8.5 grams budesonide-formoterol HFA 80 2 puff inhalation BID #30.6 grams 10/07/24 08/23/25 Rx mcg-4.5 mcg/actuation aerosol inhaler (Symbicort) enzalutamide 40 mg capsule (Xtandi) 160 mg PO DAILY 10/29/24 08/23/25 History lisinopril 5 mg tablet 5 mg PO DAILY #90 tabs 03/16/25 08/23/25 Rx nitroglycerin 0.4 mg sublingual 0.4 mg sublingual Q5-15M PRN chest 03/16/25 08/23/25 Rx tablet pain #25 tabs pravastatin 40 mg tablet 40 mg PO HS #90 tabs 03/26/25 08/23/25 Rx Exam Narrative Exam Narrative: HEENT-normocephalic atraumatic mucous membranes moist oropharynx clear extract motions are intact Neck-no lymphadenopathy no JVD no thyromegaly Cardiovascular-regular rate and rhythm no rubs or gallops Lungs-clear to auscultation bilaterally with good air exchange Abdomen-soft nontender nondistended bowel sounds active x 4 quadrants Extremities-no sinus clubbing or edema laterally neurologic-cranial nerves II through XII intact as tested reflexes upper extremity normal as tested. Nonfocal exam Psych-alert and oriented x 3 no apparent distress Results Labs 08/23/25 01:07 08/23/25 01:07 Labs: Laboratory Results - last 24 hr 08/23/25 08/23/25 08/23/25 01:07 02:02 04:00 WBC 5.00 RBC 3.94 L Hgb 12.9 L Hct 37.9 L MCV 96 H MCH 32.7 MCHC 34.0 RDW 12.5 Plt Count 152 MPV 8.2 Immature Gran % 0.4 Neutrophils % 65.6 Lymphocytes % 18.2 Monocytes % 12.2 Eosinophils % 3.0 Basophils % 0.6 Nucleated RBC % 0.0 Absolute Neutrophils 3.28 Absolute Lymphocytes 0.91 L Absolute Monocytes 0.61 Absolute Eosinophils 0.15 Absolute Basophils 0.03 PT 9.9 INR 1.0 APTT 26.5 Sodium 141 Potassium 4.3 Chloride 101 Carbon Dioxide 32.0 Anion Gap 8.0 BUN 18 Creatinine 1.0 Est GFR (CKD-EPI 2020) 81.47 Glucose 130 H Calcium 9.8 Magnesium 2.0 Total Bilirubin 0.4 AST 14 L ALT 22 Alkaline Phosphatase 136 H Troponin I 12 11 11 NT-Pro-B Natriuret Pep 239 Total Protein 7.5 Albumin 3.9 Lipase 30 Last Vital Signs Temp 36.2 C L 08/23/25 00:59 Pulse 54 L 08/23/25 04:41 Resp 14 08/23/25 04:41 BP 167/67 H 08/23/25 04:41 Pulse Ox 96 08/23/25 04:41 Time Spent Time spent with Patient: 40-54 minutes Time was spent: preparing to see the patient(eg.review tests), obtaining and/or reviewing separately otained hiistory, ordering medications,tests, procedures, referring, communicating with other health foster care case manager, indepentently interpreting results, counseling the patient and care coordination
[2025-08-23] MEDS: Enoxaparin 40 MG/0.4 ML SYR SC (05:06)
--- NOTE | 2025-08-23 07:19 | W.PC.ACHO ---
Registration Status: ADM IN Primary Language: Preferred Language: Arabic ED Information & Data Chief Complaint Chest Pain 08/23/25 01:59 Triage Note c/o L sided chest pain and 08/23/25 00:59 SOB off and on all day, took nitro 1.5-2 hours ago with some relief. Pain radiates to back between shoulder blades. Medical / Surgical History (Last Reviewed 10/29/24 @ 10:20 by Kaur Hui NP) PAD (peripheral artery disease) Moderate persistent asthma DNI (do not intubate) DNR (do not resuscitate) Hyperlipidemia Essential hypertension (10/20/13) Prostate cancer (Last Reviewed 10/29/24 @ 10:20 by Kaur Hui NP) BACK SURGERY (~03/1994) Most Recent Vital Signs Temperature 36.4 C L 08/23/25 06:17 Temperature Source Temporal Artery Scan 08/23/25 06:17 Pulse 60 08/23/25 06:17 Pulse 55 L 08/23/25 05:41 Respiratory Rate 13 08/23/25 05:41 Respiratory Effort Normal 08/23/25 06:17 Respiratory Depth Normal 08/23/25 06:17 Respiratory Pattern Normal 08/23/25 06:17 Blood Pressure 155/76 H 08/23/25 06:17 Blood Pressure Mean 102 08/23/25 06:17 Blood Pressure Position Supine 08/23/25 06:17 Pulse Oximetry 95 08/23/25 06:17 Oxygen Delivery Method Room Air 08/23/25 06:17 Oxygen Flow Rate 0 08/23/25 06:17 Pain Level 0 08/23/25 06:17 Allergies Penicillins Allergy (Mild, Verified 08/23/25 02:55) Skin Rash oxycodone Allergy (Verified 08/23/25 02:55) WHEEZING atorvastatin Adverse Reaction (Intermediate, Verified 08/23/25 02:55) MYALGIAS Precautions Isolation Standard precaution 08/23/25 01:02 Active Medications Generic Name Dose Route Start Last Admin Trade Name Freq PRN Reason Stop Dose Admin Nitroglycerin/Dextrose 50 mg in 250 mls @ 0 mls/hr 08/23/25 01:45 08/23/25 06:17 IV 9 mls/hr INFUSION ROWDY 9 mls/hr Protocol Titration Per Protocol Iohexol 100 ml 08/23/25 01:30 08/23/25 01:18 Omnipaque 350 Mg/Ml 100 Ml Btl IJ 09/22/25 23:59 85 ml DIRECTED ROWDY Administration Nitroglycerin 0.4 mg 08/23/25 01:05 08/23/25 01:39 Nitroglycerin 0.4 Mg Tab SL 0.4 mg Q5 MIN PRN X3 PRN Administration Sodium Chloride 0 ml 08/23/25 01:17 08/23/25 01:19 Normal Saline Flush 10 Ml Syr IVP 10 ml PRN PRN Administration IV IV Catheter Type [] Saline Lock IV Catheter Type [Right Peripheral IV Antecubital] IV Catheter Gauge [] 20 IV Catheter Gauge [Right 18 Antecubital] Diet Orders Category Date Time Status Regular/Normal [DIET] Nutrition 08/23/25 Breakfast Active Diagnostics 08/23/25 08/23/25 08/23/25 Range/Units 05:35 04:00 02:02 WBC Pending (4.4-10.8) 10^3/uL RBC Pending (4.36-5.78) 10^6/uL Hgb Pending (13.5-17.5) g/dL Hct Pending (40.0-50.0) % MCV Pending (80-95) fL MCH Pending (27.0-33.0) pg MCHC Pending (32.0-36.0) % RDW Pending (11.8-14.1) % Plt Count Pending (130-400) 10^3/uL MPV Pending (8.0-11.0) fL Immature Gran % Pending % Neutrophils % Pending % Lymphocytes % Pending % Monocytes % Pending % Eosinophils % Pending % Basophils % Pending % Nucleated RBC % (0.0-0.3) % Absolute Neutrophils Pending (1.2-6.7) 10^3/uL Absolute Lymphocytes Pending (1.2-3.4) 10^3/uL Absolute Monocytes Pending (0.1-0.8) 10^3/uL Absolute Eosinophils Pending (0.0-0.7) 10^3/uL Absolute Basophils Pending (0.0-0.2) 10^3/uL PT (9.1-11.1) sec INR (0.9-1.1) APTT (20.6-30.2) sec Sodium Pending (136-145) mmol/L Potassium Pending (3.5-5.1) mmol/L Chloride Pending (98-107) mmol/L Carbon Dioxide Pending (21.0-32.0) mmol/L Anion Gap Pending (3-11) mmol/L BUN Pending (7-18) mg/dL Creatinine Pending (0.70-1.30) mg/dL Est GFR (CKD-EPI 2020) Pending (mL/min/1.73m2) Glucose Pending (74-106) mg/dL Calcium Pending (8.5-10.1) mg/dL Magnesium (1.8-2.4) mg/dL Total Bilirubin Pending (0.2-1.0) mg/dL AST Pending (15-37) U/L ALT Pending (16-63) U/L Alkaline Phosphatase Pending (46-116) U/L Troponin I 11 11 (<or=76) ng/L NT-Pro-B Natriuret Pep (<300) pg/mL Total Protein Pending (6.4-8.2) g/dL Albumin Pending (3.4-5.0) g/dL Lipase (<78) U/L 08/23/25 Range/Units 01:07 WBC 5.00 (4.4-10.8) 10^3/uL RBC 3.94 L (4.36-5.78) 10^6/uL Hgb 12.9 L (13.5-17.5) g/dL Hct 37.9 L (40.0-50.0) % MCV 96 H (80-95) fL MCH 32.7 (27.0-33.0) pg MCHC 34.0 (32.0-36.0) % RDW 12.5 (11.8-14.1) % Plt Count 152 (130-400) 10^3/uL MPV 8.2 (8.0-11.0) fL Immature Gran % 0.4 % Neutrophils % 65.6 % Lymphocytes % 18.2 % Monocytes % 12.2 % Eosinophils % 3.0 % Basophils % 0.6 % Nucleated RBC % 0.0 (0.0-0.3) % Absolute Neutrophils 3.28 (1.2-6.7) 10^3/uL Absolute Lymphocytes 0.91 L (1.2-3.4) 10^3/uL Absolute Monocytes 0.61 (0.1-0.8) 10^3/uL Absolute Eosinophils 0.15 (0.0-0.7) 10^3/uL Absolute Basophils 0.03 (0.0-0.2) 10^3/uL PT 9.9 (9.1-11.1) sec INR 1.0 (0.9-1.1) APTT 26.5 (20.6-30.2) sec Sodium 141 (136-145) mmol/L Potassium 4.3 (3.5-5.1) mmol/L Chloride 101 (98-107) mmol/L Carbon Dioxide 32.0 (21.0-32.0) mmol/L Anion Gap 8.0 (3-11) mmol/L BUN 18 (7-18) mg/dL Creatinine 1.0 (0.70-1.30) mg/dL Est GFR (CKD-EPI 2020) 81.47 (mL/min/1.73m2) Glucose 130 H (74-106) mg/dL Calcium 9.8 (8.5-10.1) mg/dL Magnesium 2.0 (1.8-2.4) mg/dL Total Bilirubin 0.4 (0.2-1.0) mg/dL AST 14 L (15-37) U/L ALT 22 (16-63) U/L Alkaline Phosphatase 136 H (46-116) U/L Troponin I 12 (<or=76) ng/L NT-Pro-B Natriuret Pep 239 (<300) pg/mL Total Protein 7.5 (6.4-8.2) g/dL Albumin 3.9 (3.4-5.0) g/dL Lipase 30 (<78) U/L Intake and Output - 24 Hour Total 08/23/25 00:56 thru 08/23/25 06:49 Intake Total 42.775 Balance 42.775 Weight 87.3 kg Intake: IV 42.775 Falls Risk Assessment History of Falls No History 08/23/25 06:17 Contributing Factors No Factors 08/23/25 06:17 Ambulatory Aids Independent 08/23/25 06:17 Tubes/Lines W/no contributing factors 08/23/25 06:17 Gait Evaluation No gait disturbance 08/23/25 06:17 Cognition No cognitive impairment 08/23/25 06:17 Fall Total Score 10 08/23/25 06:17 Level of Risk Standard/Low Risk 08/23/25 06:17 Problems (Last Reviewed 10/29/24 @ 10:20 by Kaur Hui, PRASHANT) Hypertensive emergency without congestive heart failure (Acute) Diabetes mellitus (Chronic) Chest pain (Chronic) POLST (Physician Orders for Life-Sustaining Treatment) (Chronic) Notes 08/23/25 03:49 Nursing Notes by Yani Aviles I spoke with Darlyn in Diagnostic Imaging and requested that images be pushed from [facility] Diagnostic Imaging to [facility] [place]. Romero's request. Also EKG's from and April of 2023 have been faxed to the [facility]. Initialized on 08/23/25 03:49 - END OF NOTE 08/23/25 01:29 Nursing Notes by Calvin Lau Pt arrived with chest pain and shortness of breath, pain initially 8/10, decreased to 3/10 after 1 NTG, pt stated he is pain free 0/0 after 2nd NTG, FPJ Initialized on 08/23/25 01:29 - END OF NOTE v v v v v v v v v Sending and/or Receiving Nurses: Please use comment section below to note any information pertinent to the patient hand-off not included above. Information / Comments: Report received from: Medhat Garcia all questions answered: yes
[2025-08-23] MEDS: nitroGLYcerin in D5W 50 MG/250 ML BTL 9 MG IV (07:36)
[2025-08-23 07:59] LABS: Abs Immature Grans 0.01 10^3/uL (0.0-0.06); HCT 37.2 % (40.0-50.0); HGB 13.1 g/dL (13.5-17.5); Immature Grans % 0.2 %; MCH 33.9 pg (27.0-33.0); MCHC 35.2 % (32.0-36.0); MCV 96 fL (80-95); MPV 8.4 fL (8.0-11.0); Platelet Count 151 10^3/uL (130-400); RBC 3.87 10^6/uL (4.36-5.78); RDW 12.5 % (11.8-14.1); RDW-SD 43.5 fL; WBC 4.31 10^3/uL (4.4-10.8)
[2025-08-23] MEDS: Calcium 600mg/Vit D 200U TAB 2 TAB PO (08:15)
[2025-08-23] MEDS: Lisinopril 5 MG TAB PO (08:16)
[2025-08-23] MEDS: Budesonide/Formoterol 80/4.5 6.9 GM 60 PUFF INH IH ×2 (08:18→20:25)
[2025-08-23 09:00] LABS: ALT 21 U/L (16-63); AST 16 U/L (15-37); Albumin 3.8 g/dL (3.4-5.0); Alkaline Phosphatase 131 U/L (46-116); Anion Gap 8.9 mmol/L (3-11); BUN 15 mg/dL (7-18); Bilirubin, Total 0.5 mg/dL (0.2-1.0); CO2 28.1 mmol/L (21.0-32.0); Calcium 9.7 mg/dL (8.5-10.1); Chloride 102 mmol/L (98-107); Estimated GFR 92.45 (mL/min/1.73m2); Glucose 114 mg/dL (74-106); Potassium 4.2 mmol/L (3.5-5.1); Sodium 139 mmol/L (136-145); Total Protein 7.3 g/dL (6.4-8.2)
--- NOTE | 2025-08-23 09:38 | W.NUTRFU ---
Date of service: 08/23/25 Time of Service: 09:38 Nutrition Note NOTE: Pt chart reviewed. being treated.monitored for HTN emergency. Hx of diabetes with A!C Hx <7 with fasting glucose 114 this morning. Toleratiing regular diet. current BMI congruent with class I obesity - targeting fat loss would be recommended. electrolytes wnl no food allergies per chart Pt initially assessed as low acute nutrition risk. will check in for preferences/needs from kitchen and continue to monitor No aggressive nutrition intervention planned at this time outiside of offering outpatient services for weight mgt. Time Spent in Nutritional Counseling and Treatment: 0
--- NOTE | 2025-08-23 12:25 | PDOC.CMIN ---
Date of service: 08/23/25 Time of Service: 12:25 Care Management Initial Assmt Initial Assessment Reason for Hospitalization: Hypertensive emergency/urgency Functional Status/Living Situation Patient Presentation: Chuck was sitting up in his chair when CM met with him. He stated that he is feeling pretty good today, and much improved from when he arrived. He reported that he lives just outside of [place], alone, and that he has a s/o, Tata, who lives nearby and is supportive. 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 He does not feel that he will require any services at home or in the community upon discharge. CM will continue to follow. 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) Instrumental Activities of Daily Living (ADLs): Independent Medications Medication Management: No Issues/Barriers identified Advance Directives Advance Directives: Do you have an Advance Directive: N 02/09/22, 13:26 AD On File at [facility]: N 02/09/22, 13:26 Date Asked 08/23/25 Today, 01:00 AD Date Reviewed COLST On File at [facility] Yes 02/08/24, 19:40 COLST Date Scanned 01/20/21 02/08/24, 19:40 Code Status Resuscitation Status DNR/DNI Insurance Coverage/Financial Issues Insurance: [facility] Financial assistance 100% Care Team Visit Care Team Role Provider Type Kamari Tolbert MD MD [facility] STAFF PHYSICIAN Royce Bishop MD Primary Care Provider [facility] STAFF PHYSICIAN Alannah Penaloza Other Providers OTHER Helga Romero MD Emergency Provider [facility] STAFF PHYSICIAN Victor Manuel Powers MD Admit Provider [facility] STAFF PHYSICIAN Attending Provider Discharge Potential Discharge Needs: PCP F/U Appt Anticipated Barriers to Discharge: None Identified Patient/Family Education Needs: Review discharge instructions, discuss Ask Me Three Transportation: Private vehicle Plan: Anticipate Chuck will return home once medically cleared. He will transport home via private vehicle by family. He will follow up with his PCP and discharge plan of care. CM will continue to follow. Social Determinants of Health Screening Social Determinants of health last assessed in clinic: 08/23/25 Will the Patient Participate in the Screening?: Yes Do you worry about having a steady place to live?: no Problems where you live: no known problems In the past 12 months, have you had to go without electric, gas, oil or water in your home?: no 1. Within the past 12 months, we worried whether our food would run out before we got money to buy more.: Never true 2. Within the past 12 months, the food we bought just didn't last and we didn't have money to get more.: Never true Has lack of transportation kept you from medical appointments or from doing things needed for daily living?: no Has anyone in your life made you feel unsafe or unsupported?: no How hard is it for you to pay for the very basics like food, housing, medical care, and heating? Would you say it is:: Not hard at all Do you want help finding or keeping work or a job?: I do not need or want help If for any reason you need help with day-to-day activities such as bathing, preparing meals, shopping, managing finances, etc., do you get the help you need?: I don?t need any help How often do you feel lonely or isolated from those around you?: Never Do you speak a language other than Mauritian at home?: No Does the patient want assistance with any of the above?: No PFSH All Active Problems (Updated 08/23/25 @ 04:46 by Helga Romero MD) Hypertensive emergency without congestive heart failure (Acute) Diabetes mellitus (Chronic) Obesity (Chronic) Chest pain (Chronic) COVID (Chronic) Palliative care patient (Acute) POLST (Physician Orders for Life-Sustaining Treatment) (Chronic) Completed 01/20/2021 with Kaur Hui NP. DNR/DNI. Allergic rhinitis (Chronic) BEE (nonalcoholic steatohepatitis) (Acute) Neutropenia, febrile (Acute) a. Probably at the janeth from recent chemotherapy for prostate cancer. b. No real physical symptoms other than a fever which has since abated. c. On IV Levaquin. Medical History PAD (peripheral artery disease) Moderate persistent asthma 2015 Moderate obstruction on PFT 02/2022-moderate obstruction-significant reversibility on PFT DNI (do not intubate) DNR (do not resuscitate) Hyperlipidemia Essential hypertension (10/20/13) Prostate cancer a. High grade. b. Negative bone scan 03/25/14. c. Negative CT of the abomen and pelvis 03/25/14. d. On chemotherapy and followed by Dr. Roa. e. recurrence 2017 status post radiation therapy f. 02/2022 relatively recent bony recurrence-metastasis of especially pelvis. Followed by oncology at [facility], on hormonal therapy and doing well Surgical History BACK SURGERY (~03/1994) Family History Mother , 60's Diabetes Essential hypertension Heart disease CHF Stroke Asthma Father , 80's Diabetes Essential hypertension Sister Diabetes Essential hypertension Heart disease Hyperlipidemia Brother Essential hypertension Heart disease Grandfather Neoplasm Grandfather Essential hypertension Heart disease Grandmother Essential hypertension Stroke Asthma Grandmother Essential hypertension Stroke Asthma Brother Essential hypertension Heart disease Social History Smoking/Tobacco Use Status: Never Second Hand Exposure: Yes Smoking risk assessment performed?: Yes Alcohol Intake: current Alcohol type: beer and hard liquor Drug use: Never Substance use type: does not use Household members: none Housing: house Communication Needs: None Do you need help understanding health information?: Rarely 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 Pets and animals: Yes Pets and animals: dog(s) and horse(s) Sexually active: No Current gender identity: male What is your relationship status?: never How often do you talk on the phone with friends or family?: three or more times per week How often do you get together with friends or relatives?: decline to answer How often do you attend taoism or presybeterian services?: decline to answer Do you belong to any clubs or organized social groups?: no Panel score (0-1 are the most socially isolated patients): 1 What type of physical activity do you participate in: walking Duration: 15-30 minutes/day Frequency: 5-6 times per week Nelly/Lutheran: No preference Special nelly needs: No Seatbelt use: always Drive intox or ride w/intox van cdl driver: No Do you feel safe at home: Yes Do you feel safe in your relationship?: Yes
--- NOTE | 2025-08-23 13:42 | PHA.REVIEW2 ---
Pharmacy Admission Review Admission Clinical Review Admission Pharmacy Review: Hypertensive emergency without congestive heart failure (Acute) Penicillins Allergy (Mild, Verified 08/23/25 02:55) Skin Rash oxycodone Allergy (Verified 08/23/25 02:55) WHEEZING atorvastatin Adverse Reaction (Intermediate, Verified 08/23/25 02:55) MYALGIAS Resuscitation Status DNR/DNI Height 5 ft 6 in Weight 87.3 kg Comments Comments/Follow Ups: no f/u at this time. Pharmacy Admission Review Renal Dosing Renal Dosing: BUN 15 mg/dL (7-18) 08/23/25 07:50 Creatinine 0.9 mg/dL (0.70-1.30) 08/23/25 07:50 Medications needing adjustments: Reviewed List of meds needing interventions: no intervention at this time. Anticoagulation Anticoagulation: Hgb 13.1 g/dL (13.5-17.5) L 08/23/25 07:50 Hct 37.2 % (40.0-50.0) L 08/23/25 07:50 Plt Count 151 10^3/uL (130-400) 08/23/25 07:50 INR 1.0 (0.9-1.1) 08/23/25 01:07 Creatinine 0.9 mg/dL (0.70-1.30) 08/23/25 07:50 DVT Prophylaxis: Reviewed Medications: Enoxaparin Opiate Usage Evaluate Pain Scale/Pains Meds: Reviewed Relevant Labs Relevant Labs: Sodium 139 mmol/L (136-145) 08/23/25 07:50 Potassium 4.2 mmol/L (3.5-5.1) 08/23/25 07:50 Chloride 102 mmol/L (98-107) 08/23/25 07:50 Magnesium 2.0 mg/dL (1.8-2.4) 08/23/25 01:07 DM Control DM Control: Reviewed Insulin Dosing, Diabetic Medication: Pt history of DM controlled with diet and exercise. Monitoring serum glucose while inpatient. Cardiac Review Cardiac Review: Pt admitted with hypertensive emergency. Pt is on nitroglycerin drip with plan to transition to po meds. current BP 119/58, HR 64. Troponin I 11 ng/L (<or=76) 08/23/25 04:00 NT-Pro-B Natriuret Pep 239 pg/mL (<300) 08/23/25 01:07 BP, HR, EF%: Reviewed QTc Review QTc: Reviewed (QTC 434.) IV to PO Switch IV Medications: Reviewed Home Meds Home Med List reviewed: Reviewed Relevent Home Meds Not ordered & why?: On home meds except for Xtandi which can cause hypertension. Provider will discuss with pt's oncologist. Current Meds Current Medication Order Review: Reviewed Comments: no changes Pharmacy Antibiotic Review Comments: no antibiotics at this time Comments Comments/Follow Ups: no f/u at this time.
--- NOTE | 2025-08-23 15:13 | PT.INNT ---
PT Notes Visit Reasons: Hypertensive Emergency/Urgency PT Consult received Chart reviewed. Per RN Krissy pt with episodes of Chest pain this am. he was noted to be sitting in bedside chair. RN reports he was able to get to the chair with Supervision. PT will approach for Evaluation on 08/24/2025.
[2025-08-23] MEDS: Acetaminophen 325 MG TAB PO (19:54)
[2025-08-23] MEDS: Pravastatin 20 MG TAB 40 MG PO (19:56)
[2025-08-24] VITALS (45 sets, daily range): BP systolic 102–153; BP diastolic 55–91; PULSE 55–83; RESP 11–23; TEMP 36.2–36.6; O2SAT 94–97
[2025-08-24] MEDS: nitroGLYcerin in D5W 50 MG/250 ML BTL 12 MG IV (00:24)
[2025-08-24] MEDS: Enoxaparin 40 MG/0.4 ML SYR SC (06:43)
[2025-08-24 06:59] LABS: Abs Immature Grans 0.02 10^3/uL (0.0-0.06); HCT 34.4 % (40.0-50.0); HGB 11.8 g/dL (13.5-17.5); Immature Grans % 0.5 %; MCH 33.2 pg (27.0-33.0); MCHC 34.3 % (32.0-36.0); MCV 97 fL (80-95); MPV 8.8 fL (8.0-11.0); Platelet Count 152 10^3/uL (130-400); RBC 3.55 10^6/uL (4.36-5.78); RDW 12.5 % (11.8-14.1); RDW-SD 43.8 fL; WBC 3.76 10^3/uL (4.4-10.8)
[2025-08-24 07:28] LABS: ALT 20 U/L (16-63); AST 13 U/L (15-37); Albumin 3.3 g/dL (3.4-5.0); Alkaline Phosphatase 116 U/L (46-116); Anion Gap 8.9 mmol/L (3-11); BUN 19 mg/dL (7-18); Bilirubin, Total 0.5 mg/dL (0.2-1.0); CO2 30.1 mmol/L (21.0-32.0); Calcium 8.9 mg/dL (8.5-10.1); Chloride 102 mmol/L (98-107); Estimated GFR 72.67 (mL/min/1.73m2); Glucose 109 mg/dL (74-106); Potassium 4.3 mmol/L (3.5-5.1); Sodium 141 mmol/L (136-145); Total Protein 6.9 g/dL (6.4-8.2)
[2025-08-24] MEDS: Lisinopril 5 MG TAB 10 MG PO (07:37)
[2025-08-24] MEDS: Calcium 600mg/Vit D 200U TAB 2 TAB PO (07:37)
[2025-08-24] MEDS: Normal Saline Flush 10 ML SYR IVP ×2 (07:37→22:59)
[2025-08-24] MEDS: Budesonide/Formoterol 80/4.5 6.9 GM 60 PUFF INH IH ×2 (07:51→19:43)
--- NOTE | 2025-08-24 08:19 | PGE_ITS ---
Date of Service Date of service: 08/24/25 Time of Service: 08:19 Assessment and Plan Assessment and plan (1) Hypertensive emergency without congestive heart failure: Status: Acute Assessment and plan: - Patient met criteria for hypertensive emergency with presenting blood pressure size 208/83 and mild chest pain - Was placed on nitro drip - Program lisinopril was continued, but was increased to 10 mg in the morning of 08/24/2025 - Nitro drip will be weaned throughout the day 08/24/2025 and oral antihypertensive regimen will be adjusted as needed -He will be mindful of patient's borderline bradycardia with heart rate in the mid 50s if additional antihypertensive agent is needed (2) Chest pain: Status: Chronic Assessment and plan: - May be secondary to demand, however troponins have been negative and EKGs have been without signs of ACS - Will wean nitro drip as noted above (3) Diabetes mellitus: Status: Chronic Assessment and plan: - Blood sugars during hospitalization not requiring correction diet controlled - (4) Hyperlipidemia: Assessment and plan: - Continue home pravastatin 40 mg daily (5) Prostate cancer: Assessment and plan: -Patient is on Xtandi which according to [employer]; side effect profile can be chest pain and hypertension - Will be holding during hospitalization will recommend close follow-up with oncology (6) Moderate persistent asthma: Assessment and plan: -Without acute exacerbation - Continue home inhaler regimen Subjective Subjective Interval history since last seen: Patient states that he is doing well today and understands the plan to wean off of nitro drip while increasing antihypertensive regimen. Otherwise he has no complaints or concerns at this time. Exam Narrative Exam Narrative: Well-appearing older gentleman sitting up in the chair no acute distress, ANO x 4, heart regular rhythm, lungs good auscultation bilaterally, abdomen soft, nontender, nondistended Objective Last Vital Signs Temp 97.5 F L 08/23/25 23:01 Pulse 56 L 08/24/25 07:01 Resp 13 08/24/25 07:01 BP 129/67 08/24/25 07:01 Pulse Ox 95 08/24/25 07:01 Laboratory Results - last 24 hr 08/23/25 08/24/25 07:50 06:34 WBC 3.76 L RBC 3.55 L Hgb 11.8 L Hct 34.4 L MCV 97 H MCH 33.2 H MCHC 34.3 RDW 12.5 Plt Count 152 MPV 8.8 Immature Gran % 0.5 Neutrophils % 63.8 Lymphocytes % 20.5 Monocytes % 12.0 Eosinophils % 2.7 Basophils % 0.5 Nucleated RBC % 0.0 Absolute Neutrophils 2.40 Absolute Lymphocytes 0.77 L Absolute Monocytes 0.45 Absolute Eosinophils 0.10 Absolute Basophils 0.02 Sodium 139 141 Potassium 4.2 4.3 Chloride 102 102 Carbon Dioxide 28.1 30.1 Anion Gap 8.9 8.9 BUN 15 19 H Creatinine 0.9 1.1 Est GFR (CKD-EPI 2020) 92.45 72.67 Glucose 114 H 109 H Calcium 9.7 8.9 Total Bilirubin 0.5 0.5 AST 16 13 L ALT 21 20 Alkaline Phosphatase 131 H 116 Total Protein 7.3 6.9 Albumin 3.8 3.3 L PAWSS Have you Ever Experienced Previous Episodes of Alcohol Withdrawal?: No Have you ever Experienced Withdrawal Seizures?: No Have you ever Experienced Delirium Tremens(DT)s?: No Have you ever undergone Alcohol Rehabilitation Treatment (i.e, inpt ot outpatient treatment programs)?: No Have you ever Experienced Blackouts?: No Have you ever Combined Alcohol with other Downers within the last 90 days?: No Have you ever Combined Alcohol with any other Substance of Abuse during the last 90 days?: No Positive Blood Alcohol level on Presentation? [PCS.BAL]: No Evidence of Increased Autonomic Activity (i.e. HR>120, tremor, sweating, agitation, nausea)?: No Result: 0 Time Spent with Patient Time Spent with Patient: >50 minutes Time was spent: preparing to see the patient(eg.review tests), obtaining and/or reviewing separately otained hiistory, ordering medications,tests, procedures, referring, communicating with other health hospice care sales consultant, indepentently interpreting results, counseling the patient and care coordination
--- NOTE | 2025-08-24 10:03 | PT.INIE ---
PT Notes Visit Reasons: Hypertensive Emergency/Urgency Physical Therapy Inpatient Initial Evaluation Date: 08/24/2025 Referring Doctor: Dr. Powers PT Orders: PT CONSULT: PT evaluation and treat Precautions: Telemetry in place, standard, IV infusing right upper extremity Patient Profile/Admitting Diagnosis: Fracisco is a 70-year-old male who presented to the ED on 08/22/2025 after 36 hours of intermittent chest pain radiating to his back. ED he was started on nitro drip due to hypertensive emergency without CHF. CT chest/abdomen /pelvis negative findings. Troponin levels negative x 3. He was transferred to the ICU for medical management and monitoring. PT consult was placed patient currently undergoing weaning off nitro drip 08/24/2025 PMHX: Hypertensive emergency without congestive heart failure (Acute) Diabetes mellitus (Chronic) Obesity (Chronic) Chest pain (Chronic) COVID (Chronic) Palliative care patient (Acute) POLST (Physician Orders for Life-Sustaining Treatment) (Chronic) Completed 01/20/2021 with Kaur Hui NP. DNR/DNI.Allergic rhinitis (Chronic) BEE (nonalcoholic steatohepatitis) (Acute) Neutropenia, febrile (Acute) a. Probably at the janeth from recent chemotherapy for prostate cancer. b. No real physical symptoms other than a fever which has since abated. c. On IV Levaquin. Medical History PAD (peripheral artery disease) Moderate persistent asthma 2015 Moderate obstruction on PFT 02/2022-moderate obstruction-significant reversibility on PFTDNI (do not intubate) DNR (do not resuscitate) Hyperlipidemia Essential hypertension (10/20/13) Prostate cancer a. High grade. b. Negative bone scan 03/25/14. c. Negative CT of the abomen and pelvis 03/25/14. d. On chemotherapy and followed by Dr. Roa. e. recurrence 2017 status post radiation therapy f. 02/2022 relatively recent bony recurrence-metastasis of especially pelvis. Followed by oncology at [facility], on hormonal therapy and doing well Surgical History BACK SURGERY (~03/1994) Social History/Home Situation: Patient resides alone with his significant other nearby. 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 He is independent without device ambulating, home management, meal prep, shopping. Patient drives Equipment Owned/DME: None Subjective: Patient reports he feels much better than he did when he came to the emergency room Objective: [] General Observation: Male seated in bedside chair telemetry in place IV infusing, significant other visiting Mental Status: Alert and oriented x 4, cooperative, able to follow instructions, agreeable to participate Pain: Denied Vital signs: Pre 117/63 heart rate 68 post 128/66 heart rate 77; max heart rate of 91 bpm while performing stairs per telemetry ROM: [] Right Upper Extremity: WNL Left Upper Extremity: WNL Right Lower Extremity: [WNL Left Lower Extremity: WNL Strength: No MMT Right Upper Extremity: Able to move all joints against gravity Left Upper Extremity: Able to move all joints against gravity Right Lower Extremity: [] Able to move all joints against gravity Left Lower Extremity: Able to move all joints against gravity Sensation: Intact Bed Mobility/Transfers: [] Supine to sit independent Sit to stand [] independent Stand to sit independent Bed to chair independent Gait: Ambulated 300 feet without assistive device independent reciprocal pattern no shortness of breath able to carry conversation. Stairs: Two 6 inch steps and three 4 inch steps reciprocal pattern with 1 rail independently Balance: [] Static Sitting: Normal Dynamic Sitting: Normal Static Standing: Normal Dynamic Standing: Normal Special Tests: [] Mobility Limitations Standardized Measure [] [facility] AM-PAC 6 clicks Basic Mobility Inpatient Short Form: [] Raw Score: 24 CMS Score: 0% deficit Informed Consent/Education: Patient instructed in purpose of PT consult. Treatment: 15257 Functional mobility tasks including item transport and management within small spaces without assistive device independently. Patient demonstrates independence with self-care during toileting tasks Assessment: Chuck is a 70-year-old male presented to the ED with chest pain radiating to his back. Patient assessment completed at functional level with no resistance applied for manual muscle testing due to diagnosis of hypertensive emergency requiring nitro drip. Patient demonstrates no focal deficits. He is independent without assistive device for all functional mobility with no reports of shortness of breath or telemetry changes. No further skilled PT indicated in an inpatient basis. Patient is assessed as a low complexity based on the following: History: 70-year-old male with impairment level findings, functional limitations, and past medical history as indicated above Examination: Demonstrable impairment in strength, balance, and mobility level with underlying impairments and functional limitations as documented above Presentation: Evolving/stable Decision Making: Low Goals: N/A. PT evaluation and 1-2 treatment sessions only for functional mobility training using recommended AD and for HEP instruction. Plan of Care/Treatment Plan: N/A. PT evaluation and 1-2 treatment session only for functional mobility training using recommended AD and for HEP instruction. DISCHARGE RECOMMENDATIONS: Home No services TREATMENT CODE/TIME: 54079, 31152/ [id number] Thank you for the opportunity to participate in the care of this patient. Kristine Rios PT [place] [facility]
--- NOTE | 2025-08-24 14:08 | PDOC.CMPRO ---
Date of service: 08/24/25 Time of Service: 14:08 Care Management Progress Note Progress Note Text Progress Note Text: Chuck was sitting up in the bedside chair, just finishing up lunch, when CM met with him today. He was very pleasant, and pleased to announce that his nitro drip is being titrated down. He is hopeful to go home tonight. Discharge Potential Discharge Needs: PCP F/U Appt Anticipated Barriers to Discharge: None Identified Patient/Family Education Needs: Review discharge instructions, discuss Ask Me Three Transportation: Private vehicle Plan: Anticipate Chuck will return home once medically cleared. He will transport home via private vehicle by family. He will follow up with his PCP and discharge plan of care. CM will continue to follow. Social Determinants of Health Screening Social Determinants of health last assessed in clinic: 08/24/25 Will the Patient Participate in the Screening?: Yes Do you worry about having a steady place to live?: no Problems where you live: no known problems In the past 12 months, have you had to go without electric, gas, oil or water in your home?: no 1. Within the past 12 months, we worried whether our food would run out before we got money to buy more.: Don't know/refused 2. Within the past 12 months, the food we bought just didn't last and we didn't have money to get more.: Don't know/refused Has lack of transportation kept you from medical appointments or from doing things needed for daily living?: no Has anyone in your life made you feel unsafe or unsupported?: no How hard is it for you to pay for the very basics like food, housing, medical care, and heating? Would you say it is:: Not hard at all Do you want help finding or keeping work or a job?: I do not need or want help If for any reason you need help with day-to-day activities such as bathing, preparing meals, shopping, managing finances, etc., do you get the help you need?: I don?t need any help How often do you feel lonely or isolated from those around you?: Never Do you speak a language other than Arabic at home?: No Does the patient want assistance with any of the above?: No
[2025-08-24] MEDS: Pravastatin 20 MG TAB 40 MG PO (20:26)
[2025-08-25] VITALS (13 sets, daily range): BP systolic 100–150; BP diastolic 56–67; PULSE 52–68; RESP 12–14; TEMP 36–36.2; O2SAT 95–97
[2025-08-25] MEDS: Enoxaparin 40 MG/0.4 ML SYR SC (06:44)
[2025-08-25] MEDS: Calcium 600mg/Vit D 200U TAB 2 TAB PO (07:55)
[2025-08-25] MEDS: Lisinopril 5 MG TAB 10 MG PO (07:55)
[2025-08-25] MEDS: Normal Saline Flush 10 ML SYR IVP (07:55)
[2025-08-25] MEDS: Budesonide/Formoterol 80/4.5 6.9 GM 60 PUFF INH IH (08:04)
--- NOTE | 2025-08-25 08:06 | PDOC.CMDIS ---
Date of service: 08/25/25 Time of Service: 08:06 LACE Index Scoring Tool Questions: Length of Stay (in days): 2 Was the patient admitted via the E.D.?: Yes Comorbidities: Diabetes w/o Complication, Chronic Pulmonary Disease and Any Tumor E.D. Visits: 1 Answers: Total Score: 11 Risk of Readmission: High Risk Care Management Discharge Plan Reason for Hospitalization: chest pain and hypertension Discharge Plan: Chuck will be discharged later today with no new home care services. He will f/u with his PCP and continue per his plan of care. Chuck will transport home in a private vehicle with Tata. Patient/Family Education Needs: Review of discharge instructions, activity, limitations, and discuss Ask me 3.
--- NOTE | 2025-08-25 08:14 | W.PM.DS.N ---
Date of service: 08/25/25 Time of Service: 08:14 DS: Diagnosis Discharge Diagnosis (1) Hypertensive emergency without congestive heart failure: Status: Acute (2) Chest pain: Status: Chronic (3) Diabetes mellitus: Status: Chronic (4) Hyperlipidemia: (5) Prostate cancer: (6) Moderate persistent asthma: Discharge Plan Disposition Patient Disposition: Home Condition: Good Discharge Details Reason For Visit: Hypertensive Emergency/Urgency Admit Date/Time: 08/23/25 05:19 Admit Provider: Victor Manuel Powers Attending Provider: Victor Manuel Powers Primary Care Provider: Royce Bishop Hospital Course Hospital Course: Patient initially presented for mid chest and back pain secondary to hypertensive emergency with initial systolic blood pressures as high as 231. Troponins were not elevated and EKG did not show any signs of ST depressions, ST elevations or T wave inversions. Upon hospitalization patient was started on nitro drip which improved his chest pain and lowered his blood pressure. He was successfully weaned off of nitro drip and subsequent increase of his lisinopril from 5 to 10 mg had significant improvement of his blood pressures. It is recommended the patient stop taking his Xtandi until he speaks with oncologist as medication has a reported side effect evaluating for pressure and chest pain. Patient's chest pain resolved and blood pressures have improved it was determined that he was stable for discharge home. Home Meds and New Rx's Prescriptions: New lisinopril 5 mg Tablet 10 mg PO DAILY Qty: 90 0RF Continued calcium carbonate-vitamin D3 [Calcium 600 with Vitamin D3] 600 mg-12.5 mcg (500 unit) capsule 2 cap PO DAILY nitroglycerin 0.4 mg tablet, sublingual 0.4 mg sublingual Q5-15M PRN (Reason: chest pain) Qty: 25 0RF Rx Instructions: take as needed q 5 mins for c/p until gone if take 3 pills and pain persists, call albuterol sulfate [Proventil HFA] 90 mcg/actuation HFA aerosol inhaler 2 puff inhalation Q6H PRN (Reason: shortness of breath or wheezing) Qty: 8.5 8RF budesonide-formoterol [Symbicort] 80-4.5 mcg/actuation HFA aerosol inhaler 2 puff IH BID Qty: 30.6 4RF pravastatin 40 mg tablet 40 mg PO HS Qty: 90 3RF Discontinued Xtandi 40 mg capsule 160 mg PO DAILY lisinopril 5 mg tablet 5 mg PO DAILY Qty: 90 3RF Rx Instructions: Dose decrease on 06/03/2024. -hb dose reduce Discharge Instructions Activity:: Activity as Tolerated Equipment/Supplies:: No Equipment Needed Diet:: As Tolerated Discharge Orders Discharge Orders: Discharge Order (Routine); Ordered 08/25/25 Ordered By: Kamari Tolbert DS: Summary Time Spent with Patient providing and/or coordinating discharge services: Greater than 30 minutes Status at Discharge Functional status at discharge: independent ambulation Overall status at discharge: patient is back to baseline Mental Status: mental status grossly normal Speech and Movement: speech and movement normal Mood: congruent mood Affect: normal affect Exam Narrative Exam Narrative: Well-appearing older gentleman sitting up in the chair no acute distress, ANO x 4, heart regular rhythm, lungs good auscultation bilaterally, abdomen soft, nontender, nondistended Psych Mental Status: mental status grossly normal Speech and Movement: speech and movement normal Mood: congruent mood Affect: normal affect DS: Data Vitals/I&O Vitals and I&O: Vital Signs Temperature 97.2 F L 08/25/25 04:15 Temperature Source Temporal Artery Scan 08/25/25 04:15 Pulse 53 L 08/25/25 06:00 Pulse 53 L 08/25/25 06:00 Respiratory Rate 13 08/25/25 06:00 Respiratory Effort Normal 08/23/25 06:17 Respiratory Depth Normal 08/23/25 06:17 Respiratory Pattern Normal 08/23/25 06:17 Blood Pressure 123/62 08/25/25 04:01 Blood Pressure Mean 81 08/25/25 04:01 Blood Pressure Position Supine 08/23/25 06:17 Pulse Oximetry 95 08/25/25 06:00 Oxygen Delivery Method Room Air 08/25/25 04:15 Oxygen Flow Rate 0 08/25/25 04:15 Pain Level 0 08/23/25 20:54 Comment taken by prior nurse 08/24/25 06:01 Intake & Output 08/24/25 08/25/25 08/25/25 17:59 05:59 17:59 Intake Total 779.225 / 779.225 220 / 999.225 Output Total 650 / 650 725 / 1375 325 / 325 Balance 129.225 / 129.225 -505 / -375.775 -325 / -325 Weight 195 lb 5.273 oz Intake: IV 137.225 / 137.225 Oral 642 / 642 220 / 862 Output: Urine 650 / 650 725 / 1375 325 / 325 Other: Urine Color Yellow Yellow Yellow Urine Appearance Clear Clear Clear Urine Odor Strong Strong Comment Pt voided earlier in night into urinal and informed RN during shift assessment. Stool Size Moderate Stool Characteristics Soft Formed Brown PFSH All Active Problems (Updated 08/23/25 @ 04:46 by Helga Romero MD) Hypertensive emergency without congestive heart failure (Acute) Diabetes mellitus (Chronic) Obesity (Chronic) Chest pain (Chronic) COVID (Chronic) Palliative care patient (Acute) POLST (Physician Orders for Life-Sustaining Treatment) (Chronic) Completed 01/20/2021 with Kaur Hui NP. DNR/DNI. Allergic rhinitis (Chronic) BEE (nonalcoholic steatohepatitis) (Acute) Neutropenia, febrile (Acute) a. Probably at the janeth from recent chemotherapy for prostate cancer. b. No real physical symptoms other than a fever which has since abated. c. On IV Levaquin. Medical History PAD (peripheral artery disease) Moderate persistent asthma 2016 Moderate obstruction on PFT 02/2022-moderate obstruction-significant reversibility on PFT DNI (do not intubate) DNR (do not resuscitate) Hyperlipidemia Essential hypertension (10/20/13) Prostate cancer a. High grade. b. Negative bone scan 03/25/14. c. Negative CT of the abomen and pelvis 03/25/14. d. On chemotherapy and followed by Dr. Roa. e. recurrence 2017 status post radiation therapy f. 02/2022 relatively recent bony recurrence-metastasis of especially pelvis. Followed by oncology at [facility], on hormonal therapy and doing well Surgical History BACK SURGERY (~03/1994) Family History Mother , 60's Diabetes Essential hypertension Heart disease CHF Stroke Asthma Father , 80's Diabetes Essential hypertension Sister Diabetes Essential hypertension Heart disease Hyperlipidemia Brother Essential hypertension Heart disease Grandfather Neoplasm Grandfather Essential hypertension Heart disease Grandmother Essential hypertension Stroke Asthma Grandmother Essential hypertension Stroke Asthma Brother Essential hypertension Heart disease Social History Smoking/Tobacco Use Status: Never Second Hand Exposure: Yes Smoking risk assessment performed?: Yes Alcohol Intake: current Alcohol type: beer and hard liquor Drug use: Never Substance use type: does not use Household members: none Housing: house Communication Needs: None Do you need help understanding health information?: Rarely 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[employer] Pets and animals: Yes Pets and animals: dog(s) and horse(s) Sexually active: No Current gender identity: male What is your relationship status?: never How often do you talk on the phone with friends or family?: three or more times per week How often do you get together with friends or relatives?: decline to answer How often do you attend baptist or episcopalian services?: decline to answer Do you belong to any clubs or organized social groups?: no Panel score (0-1 are the most socially isolated patients): 1 What type of physical activity do you participate in: walking Duration: 15-30 minutes/day Frequency: 5-6 times per week Nelly/Baptism: No preference Special nelly needs: No Seatbelt use: always Drive intox or ride w/intox team cdl driver: No Do you feel safe at home: Yes Do you feel safe in your relationship?: Yes Time Spent with Patient Time Spent with Patient: <45 minutes Time was spent: preparing to see the patient(eg.review tests), obtaining and/or reviewing separately otained hiistory, ordering medications,tests, procedures, referring, communicating with other health career technical education teacher, indepentently interpreting results, counseling the patient and care coordination
[2025-08-25] MEDS: FLU Vaccine TS 2025-26 MF59C/PF (65UP) 45 MCG/0.5 ML SYR IM (09:51)
== END 2025-08-25 10:02 | disposition home or self-care (01) | DRG 305 ==
LOC: ER 04:46 → ICU 05:59
PROVIDERS: Admitting Provider Hospitalist; Emergency Provider Student in an Organized Health Care Education/Training Program; PCP Family Medicine; Responsible Provider Family Medicine; Visit Provider Hospitalist
DX: I16.1 Hypertensive emergency (principal); I10 Essential (primary) hypertension; J45.40 Moderate persistent asthma, uncomplicated; E11.9 Type 2 diabetes mellitus without complications; Z79.899 Other long term (current) drug therapy; I24.89 Other forms of acute ischemic heart disease; Z66 Do not resuscitate; E78.5 Hyperlipidemia, unspecified; C61 Malignant neoplasm of prostate; C79.51 Secondary malignant neoplasm of bone; D70.1 Agranulocytosis secondary to cancer chemotherapy; R50.81 Fever presenting with conditions classified elsewhere; E66.9 Obesity, unspecified; K75.81 Nonalcoholic steatohepatitis (NASH)
CPT/HCPCS: 00123; 36415; 71275; 80053; 83690; 90653; 93005; 93308; 94640; 96365; 96366; 96372; 99291; J1650; 74174; 83735; 83880; 84484; 85025; 85610; 85730; 93010; 94664; 94760; 99222; 99233; 99239; J2305; J3490

== ENCOUNTER 2025-09-06 03:54 | Outpatient (CLI) | payer MEDICARE, SELFPAY ==
[2025-09-06 11:25] LABS: Abs Immature Grans 0.01 10^3/uL (0.0-0.06); HCT 36.5 % (40.0-50.0); HGB 12.3 g/dL (13.5-17.5); Immature Grans % 0.3 %; MCH 32.8 pg (27.0-33.0); MCHC 33.7 % (32.0-36.0); MCV 97 fL (80-95); MPV 8.5 fL (8.0-11.0); Platelet Count 167 10^3/uL (130-400); RBC 3.75 10^6/uL (4.36-5.78); RDW 12.4 % (11.8-14.1); RDW-SD 44.7 fL; WBC 3.73 10^3/uL (4.4-10.8)
[2025-09-06 11:57] LABS: ALT 26 U/L (16-63); AST 17 U/L (15-37); Albumin 3.5 g/dL (3.4-5.0); Alkaline Phosphatase 111 U/L (46-116); Anion Gap 6.7 mmol/L (3-11); BUN 22 mg/dL (7-18); Bilirubin, Total 0.4 mg/dL (0.2-1.0); CO2 31.3 mmol/L (21.0-32.0); Calcium 9.2 mg/dL (8.5-10.1); Chloride 104 mmol/L (98-107); Estimated GFR 92.45 (mL/min/1.73m2); Glucose 91 mg/dL (74-106); Potassium 4.3 mmol/L (3.5-5.1); Sodium 142 mmol/L (136-145); Total Protein 7.3 g/dL (6.4-8.2)
== END 2025-09-06 03:55 | disposition home or self-care (01) ==
PROVIDERS: PCP Family Medicine; Visit Provider Nurse Practitioner
DX: C61 Malignant neoplasm of prostate (principal); C79.51 Secondary malignant neoplasm of bone
CPT/HCPCS: 36415; 80053; 84153; 84403; 85025